=== PATIENT | female | born 1960 | race Caucasian/White ===

== ENCOUNTER 2020-06-16 12:22 | Outpatient (REF) | payer OTHER, SELFPAY ==
--- NOTE | 2020-06-16 | MM_ITS ---
EXAMINATION: MM DIAGNOSTIC DIGITAL BREAST TOMOSYNTHESIS, BILATERAL CLINICAL INFORMATION: Due for yearly. Probable benign calcifications in region of prior benign biopsy central left breast. The lifetime risk of breast cancer based on the Tyrer-Cuzick Model is 9%. COMPARISON: Mammography: 12/11/2019, 06/09/2019, 12/05/2018, 12/02/2018 (BI-RADS 0, 11/26/2017 TECHNIQUE: Digital breast tomosynthesis is performed in both the craniocaudal and mediolateral oblique views along with computer-aided detection (CAD). Synthesized 2D images are generated from the tomosynthesis. Additional magnification left CC and magnification left ML views are obtained. FINDINGS: There are scattered areas of fibroglandular density (ACR BI-RADS breast composition Category b). Parenchymal pattern is similar to prior studies. Regional parenchymal asymmetry upper outer left breast and nodular asymmetry posterior central left breast are stable. Neither breast shows interval mass or architectural abnormality or developing density. Again, there are some scattered calcifications mid upper outer right breast. Biopsy clip marker again seen central upper mid left breast. Calcifications in the region of the biopsy clip are similar to prior diagnostic studies. No ductal distribution or interval branching or pleomorphic types. Calcifications will be reassessed again at next bilateral annual mammography to include left magnification views. Results are provided to the patient at time of visit by the technologist. MM/MM tomosynthesis diagnostic BI IMPRESSION: 1. No significant changes from prior study. 2. Probable benign calcifications are in region of prior left breast biopsy clip marker to be reassessed again at next bilateral annual exam. ASSESSMENT: BI-RADS 3: Probably Benign RECOMMENDATION: Diagnostic mammography at time of next annual exam, due in 12 months. This patient's information was entered into a reminder system with a target due date for their next mammogram.
== END 2020-06-16 12:23 | disposition home or self-care (01) ==
LOC: HO.MAMMO 12:22
PROVIDERS: Visit Provider Internal Medicine
DX: R92.1 Mammographic calcification found on diagnostic imaging of breast (principal)
CPT/HCPCS: 77062; 77066

== ENCOUNTER 2020-08-16 13:01 | Outpatient (REF) | payer OTHER, SELFPAY ==
--- NOTE | 2020-08-16 | XR_ITS ---
EXAMINATION: XR CHEST CLINICAL INFORMATION: Post Covid 19 follow-up COMPARISON: None TECHNIQUE: 2 views of the chest were obtained. FINDINGS: No significant abnormality is noted involving the heart, lungs, mediastinum, bony thorax or soft tissues. XR/XR chest 2V IMPRESSION: Unremarkable chest examination.
== END 2020-08-16 13:02 | disposition home or self-care (01) ==
LOC: HO.HMGCX 13:01
PROVIDERS: PCP Internal Medicine; Visit Provider Internal Medicine
DX: U07.1 COVID-19 (principal); R04.2 Hemoptysis
CPT/HCPCS: 71046

== ENCOUNTER 2020-12-10 07:12 | Outpatient (REF) | payer OTHER, SELFPAY ==
[2020-12-10 12:33] LABS: Estimated Average Glucose 197 mg/dL; Hemoglobin A1c % 8.5 %
== END 2020-12-10 07:13 | disposition home or self-care (01) ==
LOC: HO.HMGCLDS 07:12
PROVIDERS: PCP Internal Medicine; Visit Provider Internal Medicine
DX: E11.9 Type 2 diabetes mellitus without complications (principal); Z79.4 Long term (current) use of insulin
CPT/HCPCS: 36415; 83036

== ENCOUNTER → 2021-04-28 10:05 | Outpatient (BNVA) | payer OTHER, SELFPAY | PROVIDERS: PCP Internal Medicine; Visit Provider Obstetrics & Gynecology ==

== ENCOUNTER 2021-06-14 12:19 | Outpatient (REF) | payer OTHER, SELFPAY ==
--- NOTE | ~2021-06-14 | MM_ITS ---
EXAMINATION: MM DIAGNOSTIC DIGITAL BREAST TOMOSYNTHESIS, BILATERAL CLINICAL INFORMATION: Due for yearly. History right atypical ductal hyperplasia, status post open surgical biopsy at [facility] on 02/17/2013. Follow-up up probable benign calcifications central left breast in area of prior biopsy clip marker. The lifetime risk of breast cancer based on the Tyrer-Cuzick Model is 27%. COMPARISON: Mammography: 06/16/2020, 12/11/2019, 06/09/2019, 12/05/2018, 12/02/2018 (BI-RADS 0), 11/26/2017, 05/25/2016 TECHNIQUE: Digital breast tomosynthesis is performed in both the craniocaudal and mediolateral oblique views along with computer-aided detection (CAD). Synthesized 2D images are generated from the tomosynthesis. Additional views are obtained: Magnification left CC, magnification left ML, standard exaggerated right CC. FINDINGS: There are scattered areas of fibroglandular density (ACR BI-RADS breast composition Category b). Right: Right breast is stable scarring mid upper outer quadrant consistent with prior excisional biopsy. There is no interval mass or architectural abnormality. There are some stable scattered benign calcifications. Left: Left breast has stable parenchymal asymmetry upper outer quadrant mid depth. There is no developing density or interval mass or architectural abnormality. Smooth nodularity posterior central 12:00 left breast is stable. The left breast calcifications for follow-up central breast mid depth in area of prior biopsy clip marker are increased in number since initial magnification views 12/05/2018. The calcifications are relatively coarse but vary in size and there are also punctate calcifications. Stereotactic sampling is recommended. There are two groups of tightly arranged calcifications in the left breast, immediately posterior medial and posterior lateral to the group recommended for sampling. These are circumferentially arranged and suggestive of fibroadenomatous changes. Management: Results are discussed with the patient at time of visit. Stereotactic biopsy of the left breast calcifications in area of prior biopsy clip marker is recommended. Results and recommendation called to preventive medicine officer (Laurie) for Dr. Priest on 06/14/2021. MM/MM tomosynthesis diagnostic BI IMPRESSION: 1. Left: Increased heterogeneous calcifications in area of prior biopsy clip marker mid central left breast. 2. Right: No mammographic evidence of malignancy. ASSESSMENT: BI-RADS 4: Suspicious (subcategory 4A: Low suspicion for malignancy) RECOMMENDATION: Stereotactic sampling central left breast calcifications in area of prior biopsy clip marker. This patient's information was entered into a reminder system with a target due date for their next mammogram.
== END 2021-06-14 12:20 | disposition home or self-care (01) ==
LOC: HO.MAMMO 12:19
PROVIDERS: Visit Provider Internal Medicine
DX: R92.1 Mammographic calcification found on diagnostic imaging of breast (principal)
CPT/HCPCS: 77062; 77066

== ENCOUNTER → 2021-06-15 16:00 | Outpatient (BNVA) | payer OTHER, SELFPAY | PROVIDERS: Visit Provider Obstetrics & Gynecology ==

== ENCOUNTER 2021-06-18 07:13 | Outpatient (REF) | payer OTHER, SELFPAY ==
[2021-06-18 11:46] LABS: Estimated Average Glucose 214 mg/dL; Hemoglobin A1c % 9.1 %
== END 2021-06-18 07:14 | disposition home or self-care (01) ==
LOC: HO.HMGCLDS 07:13
PROVIDERS: PCP Internal Medicine; Visit Provider Internal Medicine
DX: E10.9 Type 1 diabetes mellitus without complications (principal); Z79.4 Long term (current) use of insulin
CPT/HCPCS: 36415; 83036

== ENCOUNTER 2021-06-23 10:07 | Outpatient (REF) | payer OTHER, SELFPAY ==
--- NOTE | ~2021-06-23 | MM_ITS ---
EXAMINATION: STEREOTACTIC TOMOSYNTHESIS-GUIDED VACUUM-ASSISTED BREAST BIOPSY, LEFT SPECIMEN RADIOGRAPH, LEFT POST PROCEDURE DIGITAL MAMMOGRAM, LEFT CLINICAL INFORMATION: Increased calcifications in area of prior biopsy mid central left breast. COMPARISON: Mammography 06/14/2021, 06/16/2020, 06/09/2019, 12/05/2018, 12/02/2018. TECHNIQUE/PROCEDURE: Informed consent was obtained from the patient after discussion of the benefits, risks, and alternatives to biopsy today. Patient appeared to understand. Gave opportunity for questions. Patient signed consent form. BIOPSY TABLE: [employer] [facility]one Biopsy System. LESION: Calcifications central breast mid depth in area of prior clip marker. LOCAL ANESTHESIA: 8 mL carbonated 1% lidocaine; 10 mL carbonated 1% lidocaine with epinephrine. DERMATOTOMY: Single skin zahra dermatotomy performed. NEEDLE: Mortar [employer] 9-gauge vacuum assisted core biopsy device. APPROACH: craniocaudal. TARGETING: Combination of digital breast tomosynthesis and stereotactic digital mammography used for targeting. CORES: 8. CLIP: Shanda [employer] T-shaped marker. SPECIMEN RADIOGRAPH: Specimen radiograph is taken in separate room using digital mammography. The index calcifications are in the excised cores. There are at least 25 calcifications in the cores. POST PROCEDURE UNILATERAL DIGITAL MAMMOGRAM: The post biopsy mammogram is performed in separate room using separate digital mammography equipment from the biopsy procedure. CC and ML views are obtained. There are scattered areas of fibroglandular density (breast composition category: b). The T shaped clip marker is in position. The position is 1.1 cm more superior than the biopsy cavity consistent with mild accordion effect. There is an old clip marker in this area similar to prior studies. The calcifications are decreased at the biopsy site consistent with the sampling. No gross hematoma. The patient tolerated the procedure well. No immediate complications. Home instructions reviewed with the patient. Final pathology results are pending. MM/MM stereotactic biopsy LT IMPRESSION: 1. Digital tomosynthesis-guided core biopsy left breast with clip placement. 2. Specimen radiograph taken and post procedure mammogram. There is mild superior accordion effect of the T shaped clip marker. 3. Final pathology results pending. An addendum report will be issued.
[2021-06-23] MEDS: Lidocaine HCl 1 % 20 ML VIAL 10 ML SUBCUT (15:55)
[2021-06-23] MEDS: Sodium Bicarbonate 8.4% 50 MEQ/50 ML VIAL SUBCUT (15:57)
== END 2021-06-23 10:08 | disposition home or self-care (01) ==
LOC: HO.MAMMO 10:07
PROVIDERS: Visit Provider Surgery
DX: R92.1 Mammographic calcification found on diagnostic imaging of breast (principal)
CPT/HCPCS: 19081; 88305; 88341; 88342; A4648

== ENCOUNTER → 2021-06-29 08:50 | Outpatient (BNVA) | payer OTHER, SELFPAY | PROVIDERS: PCP Internal Medicine; Referring Provider Internal Medicine; Visit Provider Surgery | DX: R92.1 Mammographic calcification found on diagnostic imaging of breast (principal) ==

== ENCOUNTER 2021-08-15 14:19 | Outpatient (REF) | payer OTHER, SELFPAY | END 2021-08-15 14:20 | disposition home or self-care (01) | LOC: HO.LAB 14:19 | PROVIDERS: PCP Internal Medicine | DX: R32 Unspecified urinary incontinence (principal) | CPT/HCPCS: 87086; 87088; 87186 ==

== ENCOUNTER 2021-10-22 10:06 | Outpatient (REF) | payer OTHER, SELFPAY ==
[2021-10-22 11:32] LABS: Estimated Average Glucose 200 mg/dL; Hemoglobin A1c % 8.6 %
== END 2021-10-22 10:07 | disposition home or self-care (01) ==
LOC: HO.HMGCLDS 10:06
PROVIDERS: PCP Internal Medicine; Visit Provider Internal Medicine
DX: E11.9 Type 2 diabetes mellitus without complications (principal); Z79.4 Long term (current) use of insulin
CPT/HCPCS: 36415; 83036

== ENCOUNTER 2021-10-24 15:22 | Outpatient (REF) | payer OTHER, SELFPAY ==
[2021-10-24 17:26] LABS: Hematocrit 39.9 % (37.0-47.0); Hemoglobin 12.6 g/dl (12.0-16.0); Mean Corpuscular HGB Conc 31.6 g/dl (31.0-35.0); Mean Corpuscular Hemoglobin 24.3 pg (27.0-33.0); Mean Platelet Volume 10.4 fL (9.4-12.3); Platelet Count 277 X10*3/uL (160-400); Red Blood Count 5.18 X10*6/uL (4.20-5.50); Red Cell Distribution Width 16.2 % (11.0-16.0); White Blood Count 12.7 X10*3/uL (4.8-10.8)
[2021-10-24 18:17] LABS: Alanine Aminotransferase 44 U/L (0-31); Albumin Level 4.2 g/dL (3.5-5.0); Alkaline Phosphatase 124 U/L (39-117); Anion Gap 13 (12-20); Aspartate Amino Transferase 22 U/L (5-31); Bilirubin Total 0.4 mg/dL (0.0-1.0); Blood Urea Nitrogen 14 mg/dL (9-16); Calcium 9.8 mg/dL (8.4-10.2); Carbon Dioxide 25 mmol/L (22-29); Chloride 104 mmol/L (96-108); Estimated Glomerular Filt Rate > 60; Glucose Random 202 mg/dL (60-115); Potassium 4.2 mmol/L (3.3-5.1); Sodium 138 mmol/L (135-145); Total Protein 7.1 g/dL (6.5-8.0)
== END 2021-10-24 15:23 | disposition home or self-care (01) ==
LOC: HO.LAB 15:22
PROVIDERS: PCP Internal Medicine; Referring Provider Internal Medicine; Visit Provider Nurse Practitioner Family
DX: Z01.818 Encounter for other preprocedural examination (principal); K59.01 Slow transit constipation
CPT/HCPCS: 36415; 80053; 85027

== ENCOUNTER 2021-11-07 | Outpatient (REF) | payer OTHER, SELFPAY ==
--- NOTE | ~2021-11-07 | XR_ITS ---
EXAMINATION: XR CHEST CLINICAL INFORMATION: Cough COMPARISON: 08/16/2020 TECHNIQUE: 2 views of the chest were obtained. FINDINGS: The lungs are well expanded. There is no focal consolidation, edema, or effusion. No pneumothorax. The cardiomediastinal silhouette is within normal limits. No acute osseous abnormality. Mild degenerative changes in the spine. XR/XR chest 2V IMPRESSION: No acute pulmonary finding.
--- NOTE | ~2021-11-07 | XR_ITS ---
EXAMINATION: XR KNEE AP STANDING CLINICAL INFORMATION: Bilateral knee pain COMPARISON: 08/19/2019 TECHNIQUE: AP bilateral standing view of the knees was obtained. Lateral standing view of both knees. FINDINGS: Right knee: No fracture or subluxation. There is severe medial compartment joint space narrowing. Prominent tricompartmental marginal osteophytes. No joint effusion. The appearance is similar to the 2019 study. Left knee: No fracture or subluxation. Severe medial compartment joint space narrowing with prominent tricompartmental marginal osteophytes. Enthesophyte formation of the patella. No significant joint effusion. XR/XR knee standing BI IMPRESSION: Advanced tricompartmental degenerative changes of both knees, greatest at the medial compartments.
== END 2021-11-07 12:42 | disposition home or self-care (01) ==
LOC: HO.HMGCX
PROVIDERS: PCP Internal Medicine; Visit Provider Internal Medicine
DX: M25.561 Pain in right knee (principal); M25.562 Pain in left knee; R05.9 Cough, unspecified; R09.3 Abnormal sputum
CPT/HCPCS: 71046; 73565

== ENCOUNTER → 2021-11-14 13:34 | Outpatient (BNVA) | payer OTHER, SELFPAY | PROVIDERS: PCP Internal Medicine | DX: Z13.89 Encounter for screening for other disorder (principal) ==

== ENCOUNTER → 2021-11-17 09:01 | Outpatient (BNVA) | payer OTHER, SELFPAY | PROVIDERS: PCP Internal Medicine; Visit Provider Orthopaedic Surgery | DX: M17.0 Bilateral primary osteoarthritis of knee (principal); E11.65 Type 2 diabetes mellitus with hyperglycemia | CPT/HCPCS: 20610; J1100 ==

== ENCOUNTER 2021-12-05 10:57 | Day surgery (SDC) | payer OTHER, SELFPAY ==
[2021-11-30 10:44] VITALS: BMI 45.4
--- NOTE | 2021-12-02 10:00 | P.CONAN_ITS ---
Documented by User: Regina Gomez NP 12/02/21 10:02 HPI - Anesthesia Eval Consult details Narrative: 61yo F for Colonoscopy PMFSH Active Problems Active Problems: All Active Problems (Updated 11/30/21 @ 10:39 by Dinorah Streeter RN) Well woman exam (Acute) Urine incontinence (Acute) Abnormal mammogram (Acute) At high risk for breast cancer (Acute) Tricompartment osteoarthritis of knees, bilateral (Acute) Morbid obesity (Acute) Breast calcification, left (Acute) Diabetes type 2, uncontrolled (Acute) Past Medical History Medical History Anxiety Arthritis Breast calcification, left Diabetes type 2, uncontrolled Elevated cholesterol Morbid obesity Tendonitis Family History Family History Mother Kidney carcinoma Surgical History Surgical History H/O cervical polypectomy Hx of section Hx of colonoscopy Hx of right breast biopsy Social History Social History (Updated 11/17/21 @ 09:17 by Yoselin Colin CMA) Alcohol intake: never Patient Tobacco Use Status: Never used Tobacco Advance Directives: No Advance Directives Information Provided: Yes (brochure mailed) Advance Directives on File: No 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: employed 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 Allergy/AdvReac Type Severity Reaction Status Date / Time latex [LATEX] Allergy Intermediate RASH Verified 11/17/21 09:16 dust Allergy Unknown Unknown Uncoded 08/15/21 14:30 pollen Allergy Unknown Unknown Uncoded 08/15/21 14:30 Home Medications Medication Instructions Recorded Confirmed Last Taken Type fluticasone propionate 50 1 spray INTRANASAL BID 04/28/21 06/29/21 Unknown History mcg/actuation nasal spray,suspension lorazepam 0.5 mg tablet 0.5 mg PO QID PRN 04/28/21 06/29/21 Unknown History metformin 1,000 mg tablet 1,000 mg PO BID 04/28/21 06/29/21 Unknown History omeprazole 20 mg capsule,delayed 20 mg PO DAILY 04/28/21 06/29/21 Unknown History release sertraline 50 mg tablet 50 mg PO DAILY 04/28/21 06/29/21 Unknown History clotrimazole-betamethasone 1 appl TOPICAL BID 06/23/21 06/29/21 Unknown History %-0.05 % topical cream fexofenadine 30 mg tablet 60 mg PO BID 06/23/21 06/29/21 Unknown History flash glucose sensor (FreeStyle #1 ea 06/23/21 06/29/21 Unknown History Lynsey 14 Day Sensor) fluticasone propionate 50 1 spray INTRANASAL BID 06/23/21 06/29/21 Unknown History mcg/actuation nasal spray,suspension naproxen 500 mg tablet 500 mg PO BID 06/23/21 06/29/21 Unknown History sertraline 100 mg tablet 100 mg PO DAILY 06/23/21 06/29/21 Unknown History amoxicillin 875 mg-potassium 1 tab PO BID 11/14/21 Unknown History clavulanate 125 mg tablet ascorbic acid (vitamin C) 500 mg 500 mg PO DAILY 11/14/21 Unknown History tablet (Vitamin C) Exam Exam Date and Time: December 02, 2021 1000 Height,Weight and Vital Signs: Height 5 ft 7 in Weight 131.542 kg Pertinent Lab Results Pertinent Lab Results: Laboratory Tests 10/24/21 10/24/21 16:47 16:47 WBC 12.7 H Hgb 12.6 Hct 39.9 Plt Count 277 Sodium 138 Potassium 4.2 Chloride 104 Carbon Dioxide 25 BUN 14 Creatinine 0.71 Assessment and Plan Assessment Anesthesia Assessment: Chart Reviewed Documented by User: Christal Mejia MD 12/05/21 13:02 [facility] Past Medical History Medical History Anxiety Arthritis Breast calcification, left Diabetes type 2, uncontrolled Elevated cholesterol Morbid obesity Tendonitis Family History Family History Mother Kidney carcinoma Family history of problems with anesthesia: No Surgical History Surgical History H/O cervical polypectomy Hx of section Hx of colonoscopy Hx of right breast biopsy History of Problems with Anesthesia: No Social History Social History (Updated 11/17/21 @ 09:17 by Yoselin Colin CMA) Alcohol intake: never Patient Tobacco Use Status: Never used Tobacco Advance Directives: No Advance Directives Information Provided: Yes (brochure mailed) Advance Directives on File: No 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: employed 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 Allergy/AdvReac Type Severity Reaction Status Date / Time latex [LATEX] Allergy Intermediate RASH Verified 11/17/21 09:16 dust Allergy Unknown Unknown Uncoded 08/15/21 14:30 pollen Allergy Unknown Unknown Uncoded 08/15/21 14:30 Home Medications Medication Instructions Recorded Confirmed Last Taken Type fluticasone propionate 50 1 spray INTRANASAL BID 04/28/21 06/29/21 Unknown History mcg/actuation nasal spray,suspension lorazepam 0.5 mg tablet 0.5 mg PO QID PRN 04/28/21 06/29/21 Unknown History metformin 1,000 mg tablet 1,000 mg PO BID 04/28/21 06/29/21 Unknown History omeprazole 20 mg capsule,delayed 20 mg PO DAILY 04/28/21 06/29/21 Unknown History release sertraline 50 mg tablet 50 mg PO DAILY 04/28/21 06/29/21 Unknown History clotrimazole-betamethasone 1 appl TOPICAL BID 06/23/21 06/29/21 Unknown History %-0.05 % topical cream fexofenadine 30 mg tablet 60 mg PO BID 06/23/21 06/29/21 Unknown History flash glucose sensor (FreeStyle #1 ea 06/23/21 06/29/21 Unknown History Lynsey 14 Day Sensor) fluticasone propionate 50 1 spray INTRANASAL BID 06/23/21 06/29/21 Unknown History mcg/actuation nasal spray,suspension naproxen 500 mg tablet 500 mg PO BID 06/23/21 06/29/21 Unknown History sertraline 100 mg tablet 100 mg PO DAILY 06/23/21 06/29/21 Unknown History amoxicillin 875 mg-potassium 1 tab PO BID 11/14/21 Unknown History clavulanate 125 mg tablet ascorbic acid (vitamin C) 500 mg 500 mg PO DAILY 04/11/22 Unknown History tablet (Vitamin C) Exam Airway Mallampati Class: III TM Dist: >3cm Neck ROM: Full Heart: rrr Lungs: cta Assessment and Plan Assessment Anesthesia Assessment: Anesthesia Plan Discussed and Chart Reviewed Final Anesthetic Review Family History of Problems with Anesthesia: No History of Problems with Anesthesia: No NPO: Yes ASA Class: III Final Preanesthetic Review: No Changes in Pt Med Stat, Meds/Allgs Chart Reviewed and Consent Obtained/Reviewed Patient Risk: Intermediate Procedure Risk: Intermediate Anesthetic Plan Anesthetic Plan: MAC: Disposition: Standard PACU
[2021-12-05] MEDS: Lactated Ringers 1,000 ML 100 ML IVCONT (12:24)
[2021-12-05 12:25] VITALS: BP 149/85; PULSE 95; RESP 18; TEMP 36.8; O2SAT 98
--- NOTE | 2021-12-05 13:05 | MHC.SHP ---
Pre-Procedural Eval Section A Date of Service: 12/05/21 The patient is an INPATIENT: No The History & Physical has been completed within 30 days and I have reviewed it.: No Section B Chief Complaint: screening Details of Present Illness: Colon cancer screening Relevant Family History (Specify if Yes): No Relevant Social History: None Present Medications: see Short Stay Collaborative assessment Medical History: Significant History (Anxiety Arthritis Breast calcification, left Diabetes type 2, uncontrolled Morbid obesity Tendonitis) History of Previous Operations: Relevant previous surgery/procedure and date(s) (H/O cervical polypectomy Hx of section Hx of colonoscopy) Allergies: Allergies Allergy/AdvReac Type Severity Reaction Status Date / Time latex [LATEX] Allergy Intermediate RASH Verified 11/17/21 09:16 dust Allergy Unknown Unknown Uncoded 08/15/21 14:30 pollen Allergy Unknown Unknown Uncoded 08/15/21 14:30 Review of Systems Sugical H&P ROS: Negative: Constitution, Cardiovascular, Respiratory and Gastrointestinal Exam Surgical H&P Exam: Normal: Heart, Normal: Lungs, Normal: Extremities and Normal: Abdomen Plan Diagnosis/Plan: Unchanged I have reviewed the history and physical and performed a pertinent physical examination on my patient. No changes have occurred unless specified.
--- NOTE | 2021-12-05 13:06 | P.BOP_ITS ---
Brief Operative Note Date of Service: 12/05/21 Pre-op diagnosis: Colon cancer screening Post-op diagnosis: other (Colon polyps, diverticulosis) Procedure: COLONOSCOPY TILL CECUM WITH BIOPSIES AND SNARE POLYPECTOMY Consent: Indications for the procedure and potential complications of bleeding, perforation, reaction to medications and missed diagnosis were discussed with the patient and informed consent was obtained. Instrument: Olympus PCF H 190 L variable stiffness pediatric colonoscope Monitoring: Vital signs and clinical assessment, intermittent blood pressure monitoring, continuous EKG monitoring, Pulse oximetry and Carbon Dioxide monitoring were done throughout the procedure. Colon withdrawl time was 27 minutes. Procedure: The patient was placed in the left lateral decubitis position and pre-procedure medications were administered. After a digital rectal examination of the ano-rectum, the video colonoscope was inserted into the rectum and advanced through the colon to the cecum. The colonoscope was slowly withdrawn in a retrograde panoramic fashion and the colon mucosa was carefully examined including a retroflexed view of the rectum. Findings and interventions are described below. Procedure Difficulty: Without difficulty Findings: Terminal Ileum: Not evaluated Cecum: A 2-3 mm diminutive appearing polyp removed with a cold bx Ascending Colon: Normal Transverse Colon: Normal Descending Colon: A 10 mm sessile polyp removed with a cold snare Sigmoid Colon: Moderate diverticulosis Rectum: Normal Ano-rectum: Moderate internal hemorrhoids Colon preparation: Good after copious irrigation and fair in the left colon with stool balls Impression and Post Procedure Diagnosis: Colonoscopy Findings: One small and one medium sized polyps removed Moderate diverticulosis seen in the sigmoid colon Plan: Await pathology results Patient has an appointment on 12/19/21 in the GI Clinic with Alley Warren FNP-BC . Repeat Colonoscopy interval based on path results - in 3 years if polyps are adenomatous and due to fair prep in the left colon. Above findings were reviewed with the patient and colon polyps and diverticulosis handouts were given in the discharge area Surgeon: Roque Armstrong MD Anesthesia: MAC (Dr Diaz) Was an Farm Implement Mechanic used for this Procedure?: Yes Farm Implement Mechanic: Kristi Rolon Estimated blood loss (mL): 0 Pathology: other (A. cecal polyp B. descending colon polyp) Condition: stable Disposition: PACU
--- NOTE | 2021-12-05 13:15 | P.OP_ITS ---
Operative Note Operative Note Date of Service: 12/05/21 Narrative: Pre-op diagnosis: Colon cancer screening Post-op diagnosis:?other (Colon polyps, diverticulosis) Procedure: COLONOSCOPY TILL CECUM WITH BIOPSIES AND SNARE POLYPECTOMY Consent: Indications for the procedure and potential complications of bleeding, perforation, reaction to medications and missed diagnosis were discussed with the patient and informed consent was obtained. Instrument: Olympus PCF H 190 L variable stiffness pediatric colonoscope Monitoring: Vital signs and clinical assessment, intermittent blood pressure monitoring, continuous EKG monitoring, Pulse oximetry and Carbon Dioxide monitoring were done throughout the procedure. Colon withdrawl time was 27 minutes. Procedure: The patient was placed in the left lateral decubitis position and pre-procedure medications were administered. After a digital rectal examination of the ano-rectum, the video colonoscope was inserted into the rectum and advanced through the colon to the cecum. The colonoscope was slowly withdrawn in a retrograde panoramic fashion and the colon mucosa was carefully examined including a retroflexed view of the rectum. Findings and interventions are described below. Procedure Difficulty: Without difficulty Findings: Terminal Ileum: Not evaluated Cecum:? A 2-3 mm diminutive appearing polyp removed with a cold bx Ascending Colon:? Normal Transverse Colon:? Normal Descending Colon:? A 10 mm sessile polyp removed with a cold snare Sigmoid Colon:? Moderate diverticulosis Rectum:? Normal Ano-rectum:? Moderate internal hemorrhoids Colon preparation:? Good after copious irrigation and fair in the left colon with stool balls Impression and Post Procedure Diagnosis: Colonoscopy Findings: One small and one medium sized polyps removed Moderate diverticulosis seen in the sigmoid colon Plan: Await pathology results Patient has an appointment on 12/19/21 in the GI Clinic with ? Alley Warren FNP-[place] . Repeat Colonoscopy interval based on path results - in 3 years if polyps are adenomatous and due to fair prep in the left colon. (Dulcolax 2 tablets daily starting 3 days before colonoscopy procedure for future colonoscopies) Above findings were reviewed with the patient and colon polyps and diverticulosis handouts were given in the discharge area Surgeon: Roque Armstrong MD Anesthesia:?MAC (Dr Diaz) Was an Steam Plant Operator used for this Procedure?:?Yes Steam Plant Operator:?Kristi Rolon Estimated blood loss (mL):?0 Pathology:?other (A. cecal polyp? B. descending colon polyp) Condition:?stable Disposition:?PACU
[2021-12-05 14:06] VITALS: BP 128/68; PULSE 90; RESP 16; TEMP 36.9; O2SAT 94
--- NOTE | 2021-12-05 14:18 | P.CONAN_ITS ---
[facility] Active Problems Active Problems: All Active Problems (Updated 11/30/21 @ 10:39 by Dinorah Streeter RN) Well woman exam (Acute) Urine incontinence (Acute) Abnormal mammogram (Acute) At high risk for breast cancer (Acute) Tricompartment osteoarthritis of knees, bilateral (Acute) Morbid obesity (Acute) Breast calcification, left (Acute) Diabetes type 2, uncontrolled (Acute) Past Medical History Medical History Anxiety Arthritis Breast calcification, left Diabetes type 2, uncontrolled Elevated cholesterol Morbid obesity Tendonitis Family History Family History Mother Kidney carcinoma Family history of problems with anesthesia: No Surgical History Surgical History H/O cervical polypectomy Hx of section Hx of colonoscopy Hx of right breast biopsy History of Problems with Anesthesia: No Social History Social History (Updated 11/17/21 @ 09:17 by Yoselin Colin CMA) Alcohol intake: never Patient Tobacco Use Status: Never used Tobacco Advance Directives: No Advance Directives Information Provided: Yes (brochure mailed) Advance Directives on File: No 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: employed 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 Allergy/AdvReac Type Severity Reaction Status Date / Time latex [LATEX] Allergy Intermediate RASH Verified 11/17/21 09:16 dust Allergy Unknown Unknown Uncoded 08/15/21 14:30 pollen Allergy Unknown Unknown Uncoded 08/15/21 14:30 Active Medications: Current Medications Lactated Ringer's (Lr) 1,000 mls @ 100 mls/hr IVCONT .Q10H SORAYA Last Admin: 12/05/21 12:24 Dose: 100 mls/hr Documented by: Home Medications Medication Instructions Recorded Confirmed Last Taken Type fluticasone propionate 50 1 spray INTRANASAL BID 04/28/21 06/29/21 Unknown History mcg/actuation nasal spray,suspension lorazepam 0.5 mg tablet 0.5 mg PO QID PRN 04/28/21 06/29/21 Unknown History metformin 1,000 mg tablet 1,000 mg PO BID 04/28/21 06/29/21 Unknown History omeprazole 20 mg capsule,delayed 20 mg PO DAILY 04/28/21 06/29/21 Unknown History release sertraline 50 mg tablet 50 mg PO DAILY 04/28/21 06/29/21 Unknown History clotrimazole-betamethasone 1 appl TOPICAL BID 06/23/21 06/29/21 Unknown History %-0.05 % topical cream fexofenadine 30 mg tablet 60 mg PO BID 06/23/21 06/29/21 Unknown History flash glucose sensor (FreeStyle #1 ea 06/23/21 06/29/21 Unknown History Lynsey 14 Day Sensor) fluticasone propionate 50 1 spray INTRANASAL BID 06/23/21 06/29/21 Unknown History mcg/actuation nasal spray,suspension naproxen 500 mg tablet 500 mg PO BID 06/23/21 06/29/21 Unknown History sertraline 100 mg tablet 100 mg PO DAILY 06/23/21 06/29/21 Unknown History amoxicillin 875 mg-potassium 1 tab PO BID 11/14/21 Unknown History clavulanate 125 mg tablet ascorbic acid (vitamin C) 500 mg 500 mg PO DAILY 11/14/21 Unknown History tablet (Vitamin C) Exam Exam Date and Time: December 05, 2021 1418 Height,Weight and Vital Signs: Height 5 ft 7 in Weight 131.542 kg Last Vital Signs Temp 98.2 F 12/05/21 12:25 Pulse 95 12/05/21 12:25 Resp 18 12/05/21 12:25 BP 149/85 H 12/05/21 12:25 Pulse Ox 98 12/05/21 12:25 Airway Mallampati Class: II TM Dist: >3cm Neck ROM: Full Heart: rrr Lungs: cta Assessment and Plan Assessment Anesthesia Assessment: Anesthesia Plan Discussed and Chart Reviewed Final Anesthetic Review Family History of Problems with Anesthesia: No History of Problems with Anesthesia: No NPO: Yes ASA Class: III Final Preanesthetic Review: No Changes in Pt Med Stat, Meds/Allgs Chart Reviewed and Consent Obtained/Reviewed Patient Risk: Intermediate Procedure Risk: Intermediate Anesthetic Plan Anesthetic Plan: MAC: Disposition: Standard PACU
[2021-12-05 14:21] VITALS: BP 128/79; PULSE 89; RESP 18; TEMP 36.9; O2SAT 94
== END 2021-12-05 15:02 | disposition home or self-care (01) ==
PROVIDERS: PCP Internal Medicine; Visit Provider Internal Medicine Gastroenterology
PROC: 0DJD8ZZ Inspection of Lower Intestinal Tract, Via Natural or Artificial Opening Endoscopic (ICD-10-PCS; CPT 45378; principal; 2021-12-05 12:30)
DX: Z12.11 Encounter for screening for malignant neoplasm of colon (principal); D12.4 Benign neoplasm of descending colon; K63.5 Polyp of colon; K57.30 Diverticulosis of large intestine without perforation or abscess without bleeding; K59.01 Slow transit constipation; F41.1 Generalized anxiety disorder; R06.02 Shortness of breath; E11.9 Type 2 diabetes mellitus without complications; E66.01 Morbid (severe) obesity due to excess calories; Z68.42 Body mass index [BMI] 45.0-49.9, adult; Z79.84 Long term (current) use of oral hypoglycemic drugs; Z79.899 Other long term (current) drug therapy; Z91.040 Latex allergy status
CPT/HCPCS: 45385; 45380; 88305

== ENCOUNTER 2022-01-10 07:39 | Outpatient (REF) | payer OTHER, SELFPAY | END 2022-01-10 07:40 | disposition home or self-care (01) | LOC: HO.HMGCLDS 07:39 | PROVIDERS: PCP Internal Medicine | DX: N39.0 Urinary tract infection, site not specified (principal) | CPT/HCPCS: 87086; 87088; 87186 ==

== ENCOUNTER 2022-02-21 11:00 | Outpatient (RCR) | payer OTHER, SELFPAY ==
--- NOTE | 2022-01-03 18:16 | MHC.PT.EP ---
[facility] [place] Office [place] Office [place] Office [address] [phone] F: [phone] F: [phone] F: [phone] F: [phone] Physical Therapy Plan of Care Date of Evaluation: Date of Surgery: n/a Diagnosis: Bilateral primary osteoarthritis of knee tricompartment osteoarthritis of knees, bilateral physical deconditioning other malaise HEP, weight loss Assessment: Pt is a pleasant 61yo who presents to PT with B knee pain, R>L. She presents to PT with current impairments in pain, decreased knee ROM, decreased LE strength, decreased balance, decreased endurance, and impaired gait. She is limited functionally by prolonged standing, walking, stair navigation, and performing household tasks. Pt is a good candidate for skilled PT in order to address current impairments to maximize strength, endurance, function, and QOL. She will be seen 2x/week for 4 weeks and will be reassessed at that time. Frequency and Duration: The patient will be seen 2x/week for 4 weeks Short Term Goals: Pt will be I with HEP to promote self management of symptoms Pt will improve R knee flexion by at least 5 degrees End Worker Goals: Pt will improve B quad strength to at least 4+/5 to assist with stair navigation Pt will tolerate standing and walking > 30 min to assist with functional tasks such as grocery shopping Pt will demonstrate improvements in functional mobility as evidenced by statistically significant improvement in LEFI outcome measure Treatment Plan: Modalities to reduce pain, spasms and effusion. Manual therapy to restore motion and function. Therapeutic exercise to improve strength and flexibility. Neuromuscular re-education for posture and balance. Therapeutic activities to return to functional activities of daily living. Electronically signed by: Shelly Handy, PT, DPT Please sign and return to therapist. Thank you for your referral.
--- NOTE | 2022-02-22 08:14 | MHC.PT.DC ---
[facility] [place] Office [place] Office [place] Office [address] [place] [address] [phone] F: [phone] F: [phone] F: [phone] F: [phone] Physical Therapy Discharge Report Diagnosis: Bilateral primary osteoarthritis of knee tricompartment osteoarthritis of knees, bilateral physical deconditioning other malaise HEP, weight loss Date of Surgery: n/a Date of Evaluation: 01/03/22 Date of Discharge: 02/21/22 Treatments to Date: 11 Cancellations to Date: 1 No Shows to Date: Discharge Status: Achieved Goals Improved Function Independent with HEP Discharge Summary: Pt has come to 11 PT appointments. She is I with HEP and has a thorough exercise program to follow. PT emphasized the importance of continuing exercising independently. Pt progressed with strength, endurance reduced c/o pain and improved balance overall. Pt will be following up with MD to schedule TKR. Pt DC to HEP at this time. Electronically signed by: Sandra Lima PT Please sign and return to therapist. Thank you for your referral.
== END 2022-02-22 08:15 | disposition home or self-care (01) ==
LOC: HO.PTCHIC 11:00
PROVIDERS: PCP Internal Medicine; Visit Provider Orthopaedic Surgery
DX: M17.0 Bilateral primary osteoarthritis of knee (principal)
CPT/HCPCS: 97110; 97116; 97162; 97530

== ENCOUNTER 2022-05-01 10:04 | Outpatient (REF) | payer OTHER, SELFPAY ==
[2022-05-09 04:46] LABS: HPV mRNA E6/E7 rflx Detected (Not Detected)
[2022-05-09 04:56] LABS: HPV 16 RNA NOT DETECTED (NOT DETECTED)
== END 2022-05-01 10:05 | disposition home or self-care (01) ==
LOC: HO.LNP 10:04
PROVIDERS: Visit Provider Obstetrics & Gynecology
DX: Z01.419 Encounter for gynecological examination (general) (routine) without abnormal findings (principal); Z11.51 Encounter for screening for human papillomavirus (HPV); R32 Unspecified urinary incontinence
CPT/HCPCS: 87086; 87088; 87186; 87624; 87625; 88142

== ENCOUNTER 2022-05-16 15:45 | Outpatient (REF) | payer OTHER, SELFPAY | END 2022-05-16 15:46 | disposition home or self-care (01) | LOC: HO.MRI 15:45 | PROVIDERS: Visit Provider Obstetrics & Gynecology | DX: Z13.89 Encounter for screening for other disorder (principal) ==

== ENCOUNTER 2022-05-23 12:43 | Outpatient (REF) | payer OTHER, SELFPAY | END 2022-05-23 12:44 | disposition home or self-care (01) | LOC: HO.HMGCLDS 12:43 | PROVIDERS: PCP Internal Medicine; Visit Provider Obstetrics & Gynecology | DX: N39.0 Urinary tract infection, site not specified (principal) | CPT/HCPCS: 87086; 87088; 87186 ==

== ENCOUNTER 2022-05-29 11:14 | Outpatient (REF) | payer OTHER, SELFPAY | END 2022-05-29 11:15 | disposition home or self-care (01) | LOC: HO.LNP 11:14 | PROVIDERS: Visit Provider Obstetrics & Gynecology | DX: A63.0 Anogenital (venereal) warts (principal); B97.7 Papillomavirus as the cause of diseases classified elsewhere | CPT/HCPCS: 57456; 88305 ==

== ENCOUNTER 2022-06-06 15:05 | Outpatient (REF) | payer OTHER, SELFPAY ==
--- NOTE | ~2022-06-06 | MM_ITS ---
EXAMINATION: MM SCREENING DIGITAL BREAST TOMOSYNTHESIS, BILATERAL CLINICAL INFORMATION: Screening. Asymptomatic. Benign left stereotactic biopsy. The lifetime risk of breast cancer based on the Tyrer-Cuzick Model is 7.9%. COMPARISON: Mammography: 06/23/2021 and studies dating back to 05/25/2016. TECHNIQUE: Digital breast tomosynthesis is performed in both the craniocaudal and mediolateral oblique views along with computer-aided detection (CAD). Synthesized 2D images are generated from the tomosynthesis. FINDINGS: There are scattered areas of fibroglandular density (ACR BI-RADS breast composition Category b). Stable post-surgical scarring is seen within the upper outer aspect of the right breast. There is multiplicity and bilaterality of calcifications which are essentially stable. No new abnormal dominant mass or more suspicious grouping of calcifications is appreciated. There is a stable circumscribed density seen about the superior left breast. MM/MM tomosynthesis screening BI IMPRESSION: No significant changes from prior exam. ASSESSMENT: BI-RADS 2: Benign. RECOMMENDATION: Routine annual mammography screening. This patient's information was entered into a reminder system with a target due date for their next mammogram.
== END 2022-06-06 15:06 | disposition home or self-care (01) ==
LOC: HO.MAMMO 15:05
PROVIDERS: PCP Internal Medicine; Visit Provider Obstetrics & Gynecology
DX: Z12.31 Encounter for screening mammogram for malignant neoplasm of breast (principal)
CPT/HCPCS: 77063; 77067

== ENCOUNTER 2022-06-14 11:16 | Outpatient (REF) | payer OTHER, SELFPAY ==
[2022-06-14 13:51] LABS: MANUAL DIFF FLAG NO
[2022-06-14 13:59] LABS: Basophils Percent Auto 0.4 % (0-2); Eosinophils Absolute Auto 0.2 X10*3/uL (0.0-0.4); Eosinophils Percent Auto 1.6 % (0-4); Hematocrit 42.8 % (37.0-47.0); Hemoglobin 13.7 g/dl (12.0-16.0); Imm Gran Abs Auto 0.06 X10*3/uL (0.00-0.03); Imm Gran Pct Auto 0.5 % (0.0-0.4); Lymphocytes Absolute Auto 2.5 X10*3/uL (1.2-4.9); Lymphocytes Percent Auto 22.4 % (20-40); Monocytes Absolute Auto 0.7 X10*3/uL (0.1-1.2); Monocytes Percent Auto 5.8 % (2-11); Neutrophils Absolute Auto 7.8 x10*3/uL (2.0-8.3); Neutrophils Percent Auto 69.3 % (45-73); Platelet Count 306 X10*3/uL (160-400); Red Blood Count 5.49 X10*6/uL (4.20-5.50); Red Cell Distribution Width 14.5 % (11.0-16.0); White Blood Count 11.2 X10*3/uL (4.8-10.8)
[2022-06-14 14:11] LABS: Appearance Urine Cloudy; Color Urine Yellow; Glucose Urine UA Negative (Negative); Leukocyte Esterase Urine Small (1+) (Negative); Nitrite Urine Negative (Negative); Specific Gravity - Urine 1.015 (1.005-1.025); UMIC TRIGGER UA YES; UMIC TRIGGER UACC YES; Urine Blood Negative (Negative); Urine Ketones Negative (Negative); Urine Protein Negative (Neg-Trace)
[2022-06-14 14:14] LABS: Bacteria Urine 4+ (None Seen); Hyaline Casts Urine 0-2 /LPF (0-2); RBC Urine 0-2 /HPF (0-2); UACC Culture Trigger YES
[2022-06-14 14:18] LABS: Alanine Aminotransferase 33 U/L (0-31); Albumin Level 4.2 g/dL (3.5-5.0); Alkaline Phosphatase 112 U/L (39-117); Anion Gap 15 (12-20); Aspartate Amino Transferase 22 U/L (5-31); Bilirubin Total 0.4 mg/dL (0.0-1.0); Blood Urea Nitrogen 11 mg/dL (9-16); Calcium 9.4 mg/dL (8.4-10.2); Carbon Dioxide 26 mmol/L (22-29); Chloride 104 mmol/L (96-108); Cholesterol 149 mg/dL; Estimated Glomerular Filt Rate > 60; Glucose Fasting 131 mg/dL (60-99); HDL Cholesterol 33 mg/dL; LDL Cholesterol Calculated 97 mg/dl; Potassium 4.3 mmol/L (3.3-5.1); Sodium 141 mmol/L (135-145); Total Protein 7.1 g/dL (6.5-8.0); Triglycerides 99 mg/dL
[2022-06-14 15:05] LABS: Creatinine Urine 96.18 mg/dL; Microalbum/Creatinine Ratio Ur 21.8 ug/mg cr
== END 2022-06-14 11:17 | disposition home or self-care (01) ==
LOC: HO.HMGCLDS 11:16
PROVIDERS: PCP Internal Medicine; Visit Provider Internal Medicine
DX: Z00.00 Encounter for general adult medical examination without abnormal findings (principal); E78.5 Hyperlipidemia, unspecified; E11.9 Type 2 diabetes mellitus without complications
CPT/HCPCS: 36415; 80053; 80061; 81001; 82043; 85025; 87086; 87088; 87186

== ENCOUNTER 2022-08-14 13:01 | Outpatient (REF) | payer OTHER, SELFPAY | END 2022-08-14 13:02 | disposition home or self-care (01) | LOC: HO.LAB 13:01 | PROVIDERS: PCP Internal Medicine; Visit Provider Urology | DX: N39.0 Urinary tract infection, site not specified (principal); R32 Unspecified urinary incontinence | CPT/HCPCS: 51798; 87086; 87088; 87186 ==

== ENCOUNTER 2022-09-11 16:23 | Outpatient (REF) | payer OTHER, SELFPAY ==
--- NOTE | ~2022-09-11 | CT_ITS ---
EXAMINATION: CT ABDOMEN AND PELVIS WITHOUT CONTRAST CLINICAL INFORMATION: UTI. COMPARISON: None TECHNIQUE: Multidetector volumetric imaging was performed from the superior aspect of the liver through the pubic symphysis. Sagittal and coronal reformatted images were obtained on the technologist's workstation. This CT examination was performed using dose optimization techniques as appropriate, variously including the following: *Automated exposure control *Adjustment of mA and/or kV according to patient size (this includes techniques or standardized protocols for targeted exams where dose is matched to indication/reason for exam; i.e. extremities or head) *Use of iterative reconstruction technique DLP: 1285 mGy-cm FINDINGS: LUNG BASES: The lung bases are clear LIVER, GALLBLADDER, AND BILIARY TREE: The liver is normal in size, shape, and attenuation. No focal hepatic lesion or biliary ductal dilatation is present. The gallbladder is unremarkable with no evidence of radiopaque gallstones, gallbladder wall thickening, or obvious pericholecystic inflammatory changes. PANCREAS: Unremarkable. SPLEEN: Unremarkable. ADRENAL GLANDS: Unremarkable. KIDNEYS AND URETERS: The kidneys are normal in size, shape, and attenuation. There are 3 minute nonobstructive calculi upper pole left kidney. No additional calculi seen. No caliectasis or hydronephrosis seen. BLADDER: Unremarkable. GASTROINTESTINAL TRACT: There is scattered stool and gas seen throughout the colon without significant distention. The small bowel loops are normal caliber. No inflammatory process, free air or free fluid seen. ABDOMINAL WALL: No significant hernia is appreciated. LYMPH NODES: Normal. VASCULAR: Unremarkable. PELVIC VISCERA: There are multiple phleboliths in the pelvis. There is an exophytic lesion along the right uterus likely fibroid with scattered calcification. OSSEOUS STRUCTURES: There are degenerative disc changes with vacuum disc phenomena at L1-L2 through L4-L5 disc levels with ventral and posterior spondylosis. No aggressive lytic or sclerotic process seen. CT/CT abdomen pelvis wo IV con IMPRESSION: 1. No acute intra-abdominal process seen. 2. 3 mm nonobstructive radiopaque calculi upper pole left kidney. 3. Mild constipation. Fleischner guidelines were followed.
== END 2022-09-11 16:24 | disposition home or self-care (01) ==
LOC: HO.CT 16:23
PROVIDERS: PCP Internal Medicine; Visit Provider Urology
DX: N39.0 Urinary tract infection, site not specified (principal)
CPT/HCPCS: 74176

== ENCOUNTER → 2022-09-28 10:38 | Outpatient (BNVA) | payer OTHER, SELFPAY | PROVIDERS: PCP Internal Medicine; Visit Provider Urology | DX: N39.0 Urinary tract infection, site not specified (principal); N32.81 Overactive bladder; N20.0 Calculus of kidney; R32 Unspecified urinary incontinence | CPT/HCPCS: 52000 ==

== ENCOUNTER → 2022-11-01 08:34 | Outpatient (BNVA) | payer OTHER, SELFPAY | PROVIDERS: PCP Internal Medicine; Visit Provider Urology | DX: Z13.89 Encounter for screening for other disorder (principal) ==

== ENCOUNTER 2022-12-11 15:51 | Outpatient (REF) | payer OTHER, SELFPAY ==
[2022-12-11 18:38] LABS: Appearance Urine Cloudy; Color Urine Yellow; Glucose Urine UA Negative (Negative); Leukocyte Esterase Urine Small (1+) (Negative); Nitrite Urine Positive (Negative); PH 5.5 (5.0-9.0); UMIC TRIGGER UA YES; Urine Blood Negative (Negative); Urine Ketones Trace mg/dL (Negative); Urine Protein Negative (Neg-Trace)
[2022-12-11 19:39] LABS: Bacteria Urine 2+ (None Seen); Hyaline Casts Urine 0-2 /LPF (0-2); RBC Urine >20 /HPF (0-2)
== END 2022-12-11 15:52 | disposition home or self-care (01) ==
LOC: HO.LAB 15:51
PROVIDERS: Visit Provider Urology
DX: N39.0 Urinary tract infection, site not specified (principal)
CPT/HCPCS: 81001; 87086; 87088; 87186

== ENCOUNTER 2022-12-27 15:51 | Outpatient (REF) | payer OTHER, SELFPAY ==
--- NOTE | ~2022-12-27 | US_ITS ---
EXAMINATION: US RETROPERITONEAL LIMITED (RENAL ONLY) CLINICAL INFORMATION: Calculus of kidney. COMPARISON: CT abdomen and pelvis 09/11/2022. TECHNIQUE: Real-time imaging of the kidneys. FINDINGS: RIGHT KIDNEY: 12.9 x 5.1 x 5.4 cm (SAG x AP x TRV). The kidney is normal in size, contour, and echogenicity. Renal cortical thickness is normal. No calculi or focal parenchymal lesions. No hydronephrosis. LEFT KIDNEY: 13.3 x 6.9 x 5.6 cm (SAG x AP x TRV). The kidney is normal in size, contour, and echogenicity. Renal cortical thickness is normal. No focal parenchymal lesions or hydronephrosis. A possible 6 mm nonobstructing lower pole renal stone difficult to definitively discern in 2 planes, not previously seen. US/US renal BI IMPRESSION: A possible 6 mm nonobstructing left lower pole renal stone difficult to definitively discern in 2 planes, not previously seen.
== END 2022-12-27 15:52 | disposition home or self-care (01) ==
LOC: HO.US 15:51
PROVIDERS: PCP Internal Medicine; Visit Provider Urology
DX: N20.0 Calculus of kidney (principal); N39.0 Urinary tract infection, site not specified
CPT/HCPCS: 76775

== ENCOUNTER 2023-01-08 14:55 | Outpatient (AMB) | payer OTHER, SELFPAY ==
--- NOTE | 2023-01-08 15:19 | MHC.OFFVIS ---
Intake Intake Visit Reasons: 4m follow up Intake Note: Patient is present for PVR/ Urology Med: Estradiol, Oxybutynin, Antibiotic Allergy: None Blood Thinner: None PVR: 16ml Patient states that she is constantly urinating on herself. Every time she stands up she will urinate. Allergies latex [LATEX] Allergy (Intermediate, Verified 01/08/23 15:21) RASH dust Allergy (Unknown, Uncoded 01/08/23 15:21) Unknown pollen Allergy (Unknown, Uncoded 01/08/23 15:21) Unknown Medication List - Last Reconciled 01/08/23 by Noel Orlando MD ascorbic acid (vitamin C) (Vitamin C) 500 mg PO DAILY atorvastatin 20 mg PO DAILY clotrimazole-betamethasone 1-0.05 % 1 appl topical BID 5 days estradiol (Vagifem) 10 mcg vaginal 2XW fexofenadine 60 mg PO BID flash glucose sensor (FreeStyle Lynsey 14 Day Sensor kit) As directed fluticasone propionate 50 mcg/actuation 1 spray intranasal BID fosfomycin tromethamine 1 packet PO Q3D 6 days insulin glargine (Lantus Solostar U-100 Insulin) 45 units (0.45 mL) subcut DAILY 30 days insulin lispro (Humalog KwikPen (U-100) Insulin) 4 to 16 unts before each meal based on sliding scale subcut 3 times a day; 30 days liraglutide (Victoza 2-Zachary) 1.8 mg (0.3 mL) subcut DAILY lorazepam 0.5 mg PO QID PRN metformin 1,000 mg PO BID naproxen 500 mg PO BID nitrofurantoin monohyd/m-cryst 100 mg (Macrobid) 100 mg PO BEDTIME 30 days pen needle, diabetic (BD Anaya 2nd Gen Pen Needle) 5 times a day sertraline 100 mg PO DAILY sertraline 50 mg PO DAILY solifenacin (Vesicare) 10 mg PO BID HPI HPI Comments History of Present Illness Details Maranda is a 62-year-old female who presents to the office for follow-up, recurrent UTI's, UI, Urgency, atrophic vaginitis and kidney stones. 01/08/23- --Review of chart: LV?11/01/22--The patient is taking Keflex 250 mg daily with minimal benefits and reported UTI symptoms on 10/30/2022. Urine culture was ordered on 10/30/2022.Prior to now, the patient had stopped using estrogen cream, but has resumed it again. The patient is taking oxybutynin 15 mg once a day and request for higher dose. Complains having lower back pain and urinary leakage before using the bathroom. Used OTC urine test strips which turned purple indicating positive for UTI. The patient is daily using pads. Reports occasional constipation. States having constipation and face rashes before the UTI. Sates consuming adequate amount of water and has reduced her coffee consumption. Mentions having high fiber and green leafy vegetable diet. Plan:Patient was educated regarding correct application of estrogen cream. Alternative option of vaginal suppository was given to which the patient agreed. Vagifem 10 mcg twice a week was ordered. Orders were written for oxybutynin 10 mg twice a day. She was notified that it can cause constipation. Advised to take OTC stool softener/Miralax. Renal US was ordered. Will discuss ESWL procedure post results. Follow-up in 2 months. 01/08/23-- The patient is taking oxybutynin 10 mg twice a day with minimal improvement. States urinary leakage when she goes from sitting to standing and associated with urgency, rare urinary leakage with coughing and sneezing. States having occasional lower back pain and uses hot water bag to manage it, likely musculoskeletal. The patient on Abx suppressive therapy, nitrofurantion daily, denies UTI symptoms. States using occasional estrogne vaginal suppository 2x a week. Renal US results reviewed?12/27/22-- calcification was noted in the left kidney which was not visualized well perthe report. Evaluation today-- pt did not provide urine specimen. Bladder scan PVR: 16 mL. I discussed various alternative treatment options to treat bladder spasms including neuromodulation, bladder pacemaker and bladder Botox injections. Plan: Vesicare 10 mg BID was ordered. Discontinue oxybutynin 10 mg. Continue Vagifem 10 mcg twice a week. 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 Gender identity: Female Female Reproductive History Menstrual Age of Menarche: 10 Review of Systems Const All systems reviewed & are unremarkable except as noted in HPI and below Reports no additional complaints Eyes Reports no additional complaints ENT Reports no additional complaints Card Denies dyspnea Resp Denies cough and Denies dyspnea GI Reports no additional complaints Reports no additional complaints Musc Reports no additional complaints Skin/Breast Denies rash and Denies unusual bruising Neuro Reports no additional complaints Psych Reports no additional complaints Endo Reports no additional complaints Jose/Lymph Reports no additional complaints Aller/Immun Reports no additional complaints Physical Exam Const General: cooperative and no acute distress Nutritional Appearance: overweight Orientation/consciousness: patient oriented x3 HEENT Head: Yes normal to inspection, Yes normocephalic and Yes atraumatic Eyes Conjunctivae: conjunctivae normal Neck Neck: Yes normal visual inspection and Yes trachea midline Chest Chest palpation & inspection: normal inspection of the chest Resp Effort & Inspection: normal respiratory effort Cardio Rate: regular rate GI Inspection: Yes normal to inspection Palpation (GI): Soft to palpation Skin General skin exam: no rashes or lesions noted Neuro General: patient oriented x3 Psych Appearance: grossly normal Office Procedures Post Void Residual Post Residual Void Post Void Residual (PVR): 16 [id number] Void Residual by ultrasound Results Reviewed Results Reviewed: Date of Service: 12/27/22 EXAMINATION: US RETROPERITONEAL LIMITED (RENAL ONLY) CLINICAL INFORMATION: Calculus of kidney. COMPARISON: CT abdomen and pelvis 09/11/2022. TECHNIQUE: Real-time imaging of the kidneys. FINDINGS: RIGHT KIDNEY: 12.9 x 5.1 x 5.4 cm (SAG x AP x TRV). The kidney is normal in size, contour, and echogenicity. Renal cortical thickness is normal. No calculi or focal parenchymal lesions. No hydronephrosis. LEFT KIDNEY: 13.3 x 6.9 x 5.6 cm (SAG x AP x TRV). The kidney is normal in size, contour, and echogenicity. Renal cortical thickness is normal. No focal parenchymal lesions or hydronephrosis. A possible 6 mm nonobstructing lower pole renal stone difficult to definitively discern in 2 planes, not previously seen. IMPRESSION: A possible 6 mm nonobstructing left lower pole renal stone difficult to definitively discern in 2 planes, not previously seen. Assessment & Plan Assessment & Plan (1) OAB (overactive bladder): Code(s): N32.81 - Overactive bladder (2) Recurrent urinary tract infection: Code(s): N39.0 - Urinary tract infection, site not specified (3) Urge incontinence: Code(s): N39.41 - Urge incontinence (4) Atrophic vaginitis: Code(s): N95.2 - Postmenopausal atrophic vaginitis Plan Vesicare 10 mg BID was ordered. Discontinue oxybutynin 10 mg. Continue Vagifem 10 mcg twice a week. Instructed to call the nurse line if the patient wants to start with bladder Botox therapy also check with the nurse if pants are covered in the insurance. Orders: Orders AMB Urinalysis Automated Today Z13.9 - Encounter for screening, unspecified AMB Post Void Residual by ultrasound Today N32.81 - Overactive bladder Medications: New solifenacin (Vesicare) 10 mg PO BID 60 tabs 3RF Patient Instructions: The patient had an opportunity to ask questions regarding treatment plan. All questions were answered. Imaging, Laboratory studies and physical exam results were discussed and reviewed in detail. No major barriers to understanding were identified. The patient expressed understanding and agreement with the above treatment plan. The patient is aware they should contact our office by phone for worsening of their current condition or the appearance of new symptoms. Compliance is encouraged with any medications and followup testing that is ordered. It is a privilege to be allowed the opportunity to participate in the urologic care of your patient. If you have any questions or concerns regarding treatment for the above conditions please do not hesitate to contact me. The office telephone contact is [phone]. This note is constructed in part using voice recognition software. While every effort has been made to ensure accuracy manager progressive care errors may have been included. Yours sincerely, Noel Orlando MD Coding Level of Care Code Est Pt Level 4 (51649) Diagnoses OAB (overactive bladder) N32.81 Recurrent urinary tract infection N39.0 Urge incontinence N39.41 Atrophic vaginitis N95.2 CPT Codes Post Residual Void - PVR CPT Code: 74778-[id number] Void Residual by ultrasound ([id number])
== END 2023-01-08 16:07 | disposition home or self-care (01) ==
LOC: HO.HUSH 14:55
PROVIDERS: PCP Internal Medicine; Visit Provider Urology
DX: Z13.9 Encounter for screening, unspecified (principal)
CPT/HCPCS: 99214

== ENCOUNTER → 2023-01-08 14:55 | Outpatient (BNVA) | payer OTHER, SELFPAY | PROVIDERS: PCP Internal Medicine; Visit Provider Urology | DX: N32.81 Overactive bladder (principal); N39.0 Urinary tract infection, site not specified; N39.41 Urge incontinence; N95.2 Postmenopausal atrophic vaginitis | CPT/HCPCS: 51798; 81003 ==

== ENCOUNTER 2023-03-29 11:58 | Outpatient (REF) | payer OTHER, SELFPAY | END 2023-03-29 11:59 | disposition home or self-care (01) | LOC: HO.LAB 11:58 | PROVIDERS: PCP Internal Medicine; Visit Provider Urology | DX: N39.41 Urge incontinence (principal); N39.0 Urinary tract infection, site not specified; R10.9 Unspecified abdominal pain | CPT/HCPCS: 51701; 87086; 87088; 87186 ==

== ENCOUNTER 2023-03-29 11:58 | Outpatient (AMB) | payer OTHER, SELFPAY ==
--- NOTE | 2023-03-29 05:59 | A.OFFVIS_ITS ---
Intake Intake Visit Reasons: incontinence Intake Note: Patient presents today for a follow-up on Incontinence: Botox PA has not been approved yet. Meds- None Allergies to Antibiotic- No Known Allergies Blood Thinner- None Allergies latex [LATEX] Allergy (Intermediate, Verified 04/23/23 13:23) RASH dust Allergy (Unknown, Uncoded 04/23/23 13:23) Unknown pollen Allergy (Unknown, Uncoded 04/23/23 13:23) Unknown Medication List - Last Reconciled 03/29/23 by Noel Orlando MD ascorbic acid (vitamin C) (Vitamin C) 500 mg PO DAILY atorvastatin 20 mg PO DAILY cefuroxime axetil 500 mg PO BID 10 days clotrimazole-betamethasone 1-0.05 % 1 appl topical BID 5 days diaper,brief,adult,disposable (Wings Choice Plus Adult Briefs) As directed 3 per day estradiol (Vagifem) 10 mcg vaginal 2XW fexofenadine 60 mg PO BID flash glucose sensor (FreeStyle Lynsey 14 Day Sensor kit) As directed fluticasone propionate 50 mcg/actuation 1 spray intranasal BID insulin glargine (Lantus Solostar U-100 Insulin) 45 units (0.45 mL) subcut DAILY 30 days insulin lispro (Humalog KwikPen (U-100) Insulin) 4 to 16 unts before each meal based on sliding scale subcut 3 times a day; 30 days liraglutide (Victoza 2-Zachayr) 1.8 mg (0.3 mL) subcut DAILY lorazepam 0.5 mg PO QID PRN metformin 1,000 mg PO BID naproxen 500 mg PO BID pen needle, diabetic (BD Anaya 2nd Gen Pen Needle) 5 times a day sertraline 100 mg PO DAILY sertraline 50 mg PO DAILY HPI HPI Comments History of Present Illness Details Maranda is a 63-year-old female who presents today to the office for a follow up incontinence. 03/29/2023? Maranda is followed today due to incontinence. She thinks she has another bladder infection. She reports urine leakage, which is worsening. She is wearing pads. She is on Mybetriq currently not taking Vesicare. She was last seen by me on 01/08/2023 for atrophic vaginitis. She was advised to discontinue oxybutynin 10 mg, and to continue Vagifem 10 mcg twice a week. I have discussed alternative treatment for OAB to include botox bladder injection. She will follow up with nursing staff if the she wants to proceed with bladder Botox therapy; also check with the nurse if pads/depends are covered in the insurance. I reviewed the urine culture results from 12/11/2022 which came back >100,00 cfu/ml. Review of chart: Renal US results reviewed?12/27/22-- calcification was noted in the left kidney which was not visualized well perthe report. 03/29/2023: Evaluation today?UA? Cathete rized urine was 120 mL. Nitrite positive. 03/29/2023: Plan: Discontinue Myrbetriq. The patient is interested in the Botox bladder injection I am going to give Macrobid 100 mg one dose now. Renal US was ordered for her back pain. 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 Gender identity: Female Female Reproductive History Menstrual Age of Menarche: 10 Review of Systems Const All systems reviewed & are unremarkable except as noted in HPI and below Reports no additional complaints Eyes Reports no additional complaints ENT Reports no additional complaints Card Denies dyspnea Resp Denies cough and Denies dyspnea GI Reports no additional complaints Reports no additional complaints Musc Reports no additional complaints Skin/Breast Denies rash and Denies unusual bruising Neuro Reports no additional complaints Psych Reports no additional complaints Endo Reports no additional complaints Jose/Lymph Reports no additional complaints Aller/Immun Reports no additional complaints Physical Exam Const General: cooperative, healthy appearing and no acute distress Orientation/consciousness: patient oriented x3 HEENT Head: Yes normal to inspection, Yes normocephalic and Yes atraumatic Eyes Conjunctivae: conjunctivae normal Neck Neck: Yes normal visual inspection and Yes trachea midline Chest Chest palpation & inspection: normal inspection of the chest Resp Effort & Inspection: normal respiratory effort Cardio Rate: regular rate GI Inspection: Yes normal to inspection Palpation (GI): Soft to palpation General: No no CVA tenderness External Female Exam: normal external appearance Speculum Exam - Vagina: vagina atrophic Back/Spine/Pelvis Back: No no CVA tenderness Skin General skin exam: no rashes or lesions noted Neuro General: patient oriented x3 Psych Appearance: grossly normal Results Reviewed Results Reviewed: Ordered:? Urine Culture? Procedure?Result?Verified?Site ? Urine Culture? Final?12/15/22 ? ? ?Organism 1?Escherichia coli ? Quant?> 100,000 cfu/mL ? ESBL Note:? NOTE: Extended-Spectrum Beta-Lactamase enzyme present ? E coli? M.I.C.? ? RX? --------- ---?Ampicillin?>=32?R?Ceftriaxone? >=64?R?Ertapenem? <=0.12? ? ?S?Gentamicin?<=1? S?Levofloxacin?1? I?Nitrofurantoin?32?S?Trimethoprim/Sulfamethoxazole? >=320? ? ? R?? Assessment & Plan Assessment & Plan (1) Recurrent urinary tract infection: Code(s): N39.0 - Urinary tract infection, site not specified (2) Flank pain: Code(s): R10.9 - Unspecified abdominal pain (3) Urge incontinence: Code(s): N39.41 - Urge incontinence Plan Discontinue Myrbetriq. The patient is interested in the Botox bladder injection I am going to give Macrobid 100 mg one dose now. Renal US was ordered for her back pain. Orders: Orders Urine Culture 03/29/23 N39.0 - Urinary tract infection, site not specified US renal BI 03/30/23 N39.0 - Urinary tract infection, site not specified, R10.9 - Unspecified abdominal pain Medications: New cefuroxime axetil 500 mg PO BID 20 tabs 0RF 10 days Patient Instructions: The patient had an opportunity to ask questions regarding treatment plan. All questions were answered. Imaging, Laboratory studies and physical exam results were discussed and reviewed in detail. No major barriers to understanding were identified. The patient expressed understanding and agreement with the above treatment plan.? ? ? The patient is aware they should contact our office by phone for worsening of their current condition or the appearance of new symptoms. Compliance is encouraged with any medications and followup testing that is ordered.? ? ? It is a privilege to be allowed the opportunity to participate in the urologic care of your patient. If you have any questions or concerns regarding treatment for the above conditions please do not hesitate to contact me. The office telephone contact is [phone].? ? ? This note is constructed in part using voice recognition software. While every effort has been made to ensure accuracy electronics installer errors may have been included.? ? ? Yours sincerely,? ? ? Noel Orlando MD? ? Coding Level of Care Code Est Pt Level 4 (53078) Diagnoses Recurrent urinary tract infection N39.0 Flank pain R10.9 Urge incontinence N39.41 CPT Codes Bladder/Catheter Procedure - CPT: 61125-Zblyov Bladder Catheter ([id number]) Bladder/Catheter Procedure Details: Under sterile technique a 14 [place]an catheter was passed transurethrally, 120 mL urine drained [id number] Bladder Catheter Procedure code (CPT) selection complete
== END 2023-03-29 13:09 | disposition home or self-care (01) ==
PROVIDERS: PCP Internal Medicine; Visit Provider Urology
DX: N39.0 Urinary tract infection, site not specified (principal); R10.9 Unspecified abdominal pain; N39.41 Urge incontinence
CPT/HCPCS: 51701; 99214

== ENCOUNTER 2023-03-30 15:27 | Outpatient (REF) | payer OTHER, SELFPAY ==
--- NOTE | ~2023-03-30 | US_ITS ---
EXAMINATION: US RETROPERITONEAL LIMITED (RENAL ONLY) CLINICAL INFORMATION: Urinary tract infection.. COMPARISON: None available. TECHNIQUE: Bilateral renal ultrasound performed. FINDINGS: RIGHT KIDNEY: 13.3 x 4.8 x 6.2 cm (SAG x AP x TRV). The kidney is normal in size, contour, and echogenicity. Renal cortical thickness is normal. No calculi or focal parenchymal lesions. No hydronephrosis. LEFT KIDNEY: 12.8 x 6.4 x 5.7 cm (SAG x AP x TRV). The kidney is normal in size, contour, and echogenicity. Renal cortical thickness is normal. No calculi or focal parenchymal lesions. No hydronephrosis. US/US renal BI IMPRESSION: No significant abnormality identified..
== END 2023-03-30 15:28 | disposition home or self-care (01) ==
LOC: HO.HMGCX 15:27
PROVIDERS: PCP Internal Medicine; Visit Provider Urology
DX: N39.0 Urinary tract infection, site not specified (principal); R10.9 Unspecified abdominal pain
CPT/HCPCS: 76775

== ENCOUNTER 2023-04-23 13:12 | Outpatient (REF) | payer OTHER, SELFPAY | END 2023-04-23 13:13 | disposition home or self-care (01) | LOC: HO.LAB 13:12 | PROVIDERS: PCP Internal Medicine; Visit Provider Urology | DX: N39.0 Urinary tract infection, site not specified (principal); N32.81 Overactive bladder | CPT/HCPCS: 52287; 87086; J0585 ==

== ENCOUNTER 2023-04-23 13:12 | Outpatient (AMB) | payer OTHER, SELFPAY ==
--- NOTE | 2023-04-23 13:14 | A.OFFVIS_ITS ---
Intake Intake Visit Reasons: Cysto/Botox Intake Note: Patient presents today for a CYSTOSCOPY/BOTOX INJECTION Procedure: Meds: Vagifem & Pyridium Allergies to Antibiotic: No Known Allergies Blood Thinner: None Urinalysis test clear for Cysto? Disposable Uro-N Cystoscope Cannula: Lot: [id number] Exp: 09/04/2023 Behavior Interventionist Required: No Care Nurse Rn: Care Nurse Rn offered & declined Accompanied by: Self / Same As Patient Allergies latex [LATEX] Allergy (Intermediate, Verified 04/23/23 13:23) RASH dust Allergy (Unknown, Uncoded 04/23/23 13:23) Unknown pollen Allergy (Unknown, Uncoded 04/23/23 13:23) Unknown HPI HPI Comments History of Present Illness Details Maranda is a 63-year-old female who presents today to the office for a follow-up. 04/23/2023? She is followed today for cystoscopy/ Botox injection procedure. She was last seen by me on 03/29/2023 for flank pain. The patient was advised to discontinue Myrbetriq at that time. Renal US was ordered for her back pain at that time. I reviewed the renal ultrasound results from 03/30/2023 revealed no calculi or focal parenchymal lesions. No hydronephrosis. 04/23/2023: I injected Botox injection 1 00 units today in the office. Plan: Will send urine for surveillance culture. Follow up bladder scan PVR with Nurse in 2 weeks. Follow up with me in 3 months. 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 Information consent for procedure given to the patient. Discussed technical aspects, risks, benefits and alternatives in full. Addressed all of the patient's questions and concerns regarding the procedure. The patient demonstrated knowledge and understanding. They wish to proceed with this procedure. Preparation The patient was prepped in the usual manner. A scow captain was present and in the room. Genitalia was prepped with betadine solution in a sterile manner. Lidocaine Jelly 2% was placed into the urethra and 16Fr flexible Olympus cystoscope was inserted into the meatus after adequate lubrication. Procedure Pre-procedure DIAGNOSIS: OAB Post-procedure DIAGNOSIS: OAB PROCEDURE: CYSTOSCOPY, BLADDER BOTOX INJECTION 100 UNITS SURGEON: Noel Orlando MD ANESTHESIA: Local Indications: Details of procedure: The disposible cystoscope was placed transurethrally into the bladder. The right and left ureteral orifices were visualized. There were no suspicious bladder lesions seen. The Botox 100 units was mixed with 10 cc of normal saline and injected transurethrally 1/2 cc to 1 cc per injection into the posterior bladder wall. The cystoscope was removed. The patient voided post procedure. The patient tolerated the procedure well. 33523 - Botox Injection, urethra or bladder DISPOSABLE SCOPE URO-N NEEDLE SCOPE Procedure code (CPT) selection complete Office Meds lidocaine HCl 2 % mucosal jelly in applicator Performing Provider: Noel Orlando MD Performing Location: [facility] [place] [facility] Administered by: Nanda Corea RN on 04/23/23 13:30 Dose Route Admin Location Dispensed Lot Number Expiration Date NDC Sheet Rock Applicator 10 mL intra-urethral 30 mL Comments: 2 in cocktail, 1 to prep pt [id number] 100 unit solution for injection Performing Provider: Noel Orlando MD Performing Location: [facility] [place] [facility] Administered by: Nanda Corea RN on 04/23/23 13:30 Dose Route Admin Location Dispensed Lot Number Expiration Date NDC Sheet Rock Applicator 100 unit transurethral 100 units [id number] 09/06/25 [id number] ALLERGAN/BOTOX naproxen 500 mg tablet Performing Provider: Noel Orlando MD Performing Location: [facility] [place] [facility] Administered by: Nanda Corea RN on 04/23/23 13:30 Dose Route Admin Location Dispensed Lot Number Expiration Date NDC Sheet Rock Applicator 500 mg PO 1 tab Results Reviewed Results Reviewed: Date of Service: 03/30/23 EXAMINATION:? US RETROPERITONEAL LIMITED (RENAL ONLY) CLINICAL INFORMATION: Urinary tract infection.. COMPARISON:? None available. FINDINGS: RIGHT KIDNEY: 13.3 x 4.8 x 6.2 cm (SAG x AP x TRV). The kidney is normal in size, contour, and echogenicity. Renal cortical thickness is normal. No calculi or focal parenchymal lesions. No hydronephrosis. LEFT KIDNEY: 12.8 x 6.4 x 5.7 cm (SAG x AP x TRV). The kidney is normal in size, contour, and echogenicity. Renal cortical thickness is normal. No calculi or focal parenchymal lesions. No hydronephrosis. IMPRESSION:? No significant abnormality identified. Assessment & Plan Assessment & Plan (1) OAB (overactive bladder): Code(s): N32.81 - Overactive bladder Plan Will send urine for culture. Follow up bladder scan PVR with Nurse in 2 weeks. Follow up with me in 3 months. Orders: Orders AMB Urinalysis Automated 04/23/23 Z13.9 - Encounter for screening, unspecified AMB Cystoscopy 04/23/23 N32.81 - Overactive bladder Urine Culture 04/23/23 N39.0 - Urinary tract infection, site not specified Patient Instructions: The patient had an opportunity to ask questions regarding treatment plan. All questions were answered. Imaging, Laboratory studies and physical exam results were discussed and reviewed in detail. No major barriers to understanding were identified. The patient expressed understanding and agreement with the above treatment plan.? ? ? The patient is aware they should contact our office by phone for worsening of their current condition or the appearance of new symptoms. Compliance is encouraged with any medications and followup testing that is ordered.? ? ? It is a privilege to be allowed the opportunity to participate in the urologic care of your patient. If you have any questions or concerns regarding treatment for the above conditions please do not hesitate to contact me. The office telephone contact is [phone].? ? ? This note is constructed in part using voice recognition software. While every effort has been made to ensure accuracy manager costing errors may have been included.? ? ? Yours sincerely,? ? ? Noel Orlando MD? ? Coding Level of Care Code Procedure Only Diagnoses OAB (overactive bladder) N32.81 CPT Codes Cystoscopy - CPT: 40012 - Botox Injection, urethra or bladder ([id number])
== END 2023-04-23 14:23 | disposition home or self-care (01) ==
PROVIDERS: PCP Internal Medicine; Visit Provider Urology
DX: N32.81 Overactive bladder (principal)
CPT/HCPCS: 52287

== ENCOUNTER → 2023-05-07 15:17 | Outpatient (BNVA) | payer OTHER, SELFPAY | PROVIDERS: PCP Internal Medicine; Visit Provider Urology | DX: N32.81 Overactive bladder (principal) | CPT/HCPCS: 51798 ==

== ENCOUNTER 2023-06-13 11:52 | Outpatient (REF) | payer OTHER, SELFPAY ==
[2023-06-13 13:28] LABS: Appearance Urine Clear; Color Urine Yellow; Glucose Urine UA Negative (Negative); Leukocyte Esterase Urine Trace (Negative); Nitrite Urine Positive (Negative); PH 5.5 (5.0-9.0); Specific Gravity - Urine 1.015 (1.005-1.025); UMIC TRIGGER UA YES; Urine Blood Negative (Negative); Urine Ketones Negative (Negative); Urine Protein Negative (Neg-Trace)
[2023-06-13 13:33] LABS: Bacteria Urine 4+ (None Seen); Hyaline Casts Urine 0-2 /LPF (0-2); RBC Urine 0-2 /HPF (0-2); Squamous Epithelial Cell Urine 0-2 /HPF (0-2); WBC Urine 0-5 /HPF (0-5)
== END 2023-06-13 11:53 | disposition home or self-care (01) ==
LOC: HO.HMGCLDS 11:52
PROVIDERS: PCP Internal Medicine; Visit Provider Urology
DX: N39.0 Urinary tract infection, site not specified (principal)
CPT/HCPCS: 81001; 87086; 87088; 87186

== ENCOUNTER 2023-06-14 06:27 | Outpatient (REF) | payer OTHER, SELFPAY ==
[2023-06-14 11:16] LABS: MANUAL DIFF FLAG NO
[2023-06-14 11:34] LABS: Estimated Average Glucose 160 mg/dL; Hemoglobin A1c % 7.2 % (<6.0)
[2023-06-14 11:40] LABS: Basophils Absolute Auto 0.1 X10*3/uL (0.0-0.2); Basophils Percent Auto 0.4 % (0-2); Eosinophils Absolute Auto 0.2 X10*3/uL (0.0-0.4); Eosinophils Percent Auto 1.5 % (0-4); Hematocrit 40.3 % (37.0-47.0); Imm Gran Abs Auto 0.08 X10*3/uL (0.00-0.03); Imm Gran Pct Auto 0.7 % (0.0-0.4); Lymphocytes Absolute Auto 2.6 X10*3/uL (1.2-4.9); Lymphocytes Percent Auto 21.4 % (20-40); Mean Corpuscular HGB Conc 32.3 g/dl (31.0-35.0); Mean Corpuscular Hemoglobin 25.9 pg (27.0-33.0); Mean Corpuscular Volume 80.3 fL (80.0-98.0); Mean Platelet Volume 9.8 fL (9.4-12.3); Monocytes Absolute Auto 0.7 X10*3/uL (0.1-1.2); Monocytes Percent Auto 5.7 % (2-11); Neutrophils Absolute Auto 8.4 x10*3/uL (2.0-8.3); Neutrophils Percent Auto 70.3 % (45-73); Platelet Count 297 X10*3/uL (160-400); Red Blood Count 5.02 X10*6/uL (4.20-5.50); Red Cell Distribution Width 14.6 % (11.0-16.0)
[2023-06-14 11:45] LABS: Alanine Aminotransferase 28 U/L (0-31); Alkaline Phosphatase 99 U/L (39-117); Anion Gap 12 (12-20); Aspartate Amino Transferase 19 U/L (5-31); Bilirubin Total 0.4 mg/dL (0.0-1.0); Blood Urea Nitrogen 11 mg/dL (9-16); Calcium 9.5 mg/dL (8.4-10.2); Carbon Dioxide 26 mmol/L (22-29); Chloride 106 mmol/L (96-108); Cholesterol 139 mg/dL (<200); Estimated Glomerular Filt Rate > 60; Glucose Fasting 126 mg/dL (60-99); HDL Cholesterol 28 mg/dL (>40); LDL Cholesterol Calculated 89 mg/dL (<100); Potassium 4.1 mmol/L (3.3-5.1); Sodium 140 mmol/L (135-145); Total Protein 7.3 g/dL (6.5-8.0); Triglycerides 112 mg/dL (<150)
== END 2023-06-14 06:28 | disposition home or self-care (01) ==
LOC: HO.HMGCLDS 06:27
PROVIDERS: PCP Internal Medicine; Visit Provider Internal Medicine
DX: Z00.00 Encounter for general adult medical examination without abnormal findings (principal); E78.5 Hyperlipidemia, unspecified; E11.9 Type 2 diabetes mellitus without complications; Z79.4 Long term (current) use of insulin
CPT/HCPCS: 36415; 80053; 80061; 83036; 85025

== ENCOUNTER 2023-06-30 08:23 | Outpatient (REF) | payer OTHER, SELFPAY ==
--- NOTE | ~2023-06-30 | MM_ITS ---
EXAMINATION: MM SCREENING DIGITAL BREAST TOMOSYNTHESIS, BILATERAL CLINICAL INFORMATION: Screening. Asymptomatic. The patient has a history of bilateral benign excisional biopsies and prior benign percutaneous biopsies of the left breast. COMPARISON: Mammography: This study is compared with prior exams dating back to 2018. TECHNIQUE: Digital breast tomosynthesis is performed in both the craniocaudal and mediolateral oblique views along with computer-aided detection (CAD). Synthesized 2D images are generated from the tomosynthesis. FINDINGS: There are scattered areas of fibroglandular density (ACR BI-RADS breast composition Category b). There are no significant masses, abnormal calcifications, or other abnormalities. There are benign calcifications in each breast. There are 2 tissue markers from prior benign percutaneous biopsy of the left breast. There are postsurgical changes in the upper outer quadrant of the right breast. MM/MM tomosynthesis screening BI IMPRESSION: No mammographic evidence of malignancy. ASSESSMENT: BI-RADS BI-RADS 2 - Benign Findings RECOMMENDATION: Routine annual mammography screening. 1 year F/U This examination should not preclude the clinical evaluation of a suspicious palpable abnormality. This patient's information was entered into a reminder system with a target due date for their next mammogram.
== END 2023-06-30 08:24 | disposition home or self-care (01) ==
LOC: HO.MAMMO 08:23
PROVIDERS: PCP Internal Medicine; Visit Provider Internal Medicine
DX: Z12.31 Encounter for screening mammogram for malignant neoplasm of breast (principal)
CPT/HCPCS: 77063; 77067

== ENCOUNTER → 2023-06-30 08:30 | Outpatient (BNV) | payer OTHER, SELFPAY | PROVIDERS: PCP Internal Medicine; Visit Provider Radiology Diagnostic Radiology | DX: Z12.31 Encounter for screening mammogram for malignant neoplasm of breast (principal) | CPT/HCPCS: 77063; 77067 ==

== ENCOUNTER 2023-08-01 11:34 | Outpatient (AMB) | payer OTHER, SELFPAY ==
--- NOTE | 2023-08-01 11:50 | A.OFFVIS_ITS ---
Intake Intake Visit Reasons: 3m follow up Intake Note: Patient is present for OAB: Urology Med: Estradiol, Oxybutynin & Botox Antibiotic Allergy: None Blood Thinner: None PVR: 55ml Button Facing Machine Operator Required: No Accompanied by: Self / Same As Patient Allergies latex [LATEX] Allergy (Intermediate, Verified 08/21/23 08:41) RASH dust Allergy (Unknown, Uncoded 08/21/23 08:41) Unknown pollen Allergy (Unknown, Uncoded 08/21/23 08:41) Unknown Medication List - Last Reconciled 08/01/23 by Noel Orlando MD ascorbic acid (vitamin C) (Vitamin C) 500 mg PO DAILY atorvastatin 20 mg PO DAILY cefuroxime axetil 500 mg PO BID 10 days clotrimazole-betamethasone 1-0.05 % 1 appl topical BID 5 days diaper,brief,adult,disposable (Wings Choice Plus Adult Briefs) As directed 3 per day estradiol (Vagifem) 10 mcg vaginal 2XW fexofenadine 60 mg PO BID flash glucose sensor (FreeStyle Lynsey 14 Day Sensor kit) As directed fluticasone propionate 50 mcg/actuation 1 spray intranasal BID fosfomycin tromethamine 3 grams PO Q3D 3 doses insulin glargine (Lantus Solostar U-100 Insulin) 45 units (0.45 mL) subcut DAILY 30 days insulin lispro (Humalog KwikPen (U-100) Insulin) 4 to 16 unts before each meal based on sliding scale subcut 3 times a day; 30 days liraglutide (Victoza 2-Zachary) 1.8 mg (0.3 mL) subcut DAILY lorazepam 0.5 mg PO QID PRN metformin 1,000 mg PO BID methenamine hippurate 1 g PO DAILY 90 days pen needle, diabetic (BD Anaya 2nd Gen Pen Needle) 5 times a day sertraline 100 mg PO DAILY sertraline 50 mg PO DAILY HPI HPI Comments History of Present Illness Details Maranda is a 63-year-old female who presents today to the office for a follow-up. 08/01/2023? She is followed today for OAB and recurrent UTI's. The patient previously had botox 100 units in April with minimal improvement in urgency, and she is still on Myrbetriq PO. Review of chart: Renal ultrasound results from 03/30/2023 revealed no calculi or focal parenchy mal lesions. No hydronephrosis. 04/23/2023: Botox injection 100 units i n the office. Plan:fosfomycin q3dy - 3 doses Schedule outpatient botox 200 units. 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 Gender identity: Female Female Reproductive History Menstrual Age of Menarche: 10 Review of Systems Const All systems reviewed & are unremarkable except as noted in HPI and below Reports no additional complaints Eyes Reports no additional complaints ENT Reports no additional complaints Card Denies dyspnea Resp Denies cough and Denies dyspnea GI Reports no additional complaints Reports no additional complaints Musc Reports no additional complaints Skin/Breast Denies rash and Denies unusual bruising Neuro Reports no additional complaints Psych Reports no additional complaints Endo Reports no additional complaints Jose/Lymph Reports no additional complaints Aller/Immun Reports no additional complaints Office Procedures Post Void Residual Post Residual Void Post Void Residual (PVR): 55 [id number] Void Residual by ultrasound Results AMB Urinalysis, Automated UA Leukoctes 0 Arnaldo/uL Last Edit by JAVIER Alexander on 08/01/23 12:18 UA Nitrite Positive Last Edit by JAVIER Alexander on 08/01/23 12:18 UA Urobilinogen 0.2 mg/dL Last Edit by Naomie Lopez A on 08/01/23 12:1 8 UA Protein 0 mg/dL Last Edit by Naomie Lopez A on 08/01/23 12:18 UA pH 6.0 Last Edit by Naomie Lopez A on 08/01/23 12:18 UA Blood 0 Ramos/uL Last Edit by Naomie Lopez A on 08/01/23 12:18 UA Specific [place] 1.015 Last Edit by Naomie Lopez, A on 08/01/23 12: 18 UA Ketone Negative Last Edit by Naomie Lopez A on 08/01/23 12:18 UA Bilirubin 0 mg/dL Last Edit by Naomie Lopez A on 08/01/23 12:18 UA Glucose 0 mg/dL Last Edit by Naomie Lopez A on 08/01/23 12:18 Results Reviewed Results Reviewed: Laboratory Last Values Urine pH (Auto) 6.0 08/01/23 12:15 Specific [place] (Auto) 1.015 08/01/23 12:15 Urine Protein (Auto) 0 mg/dL 08/01/23 12:15 Glucose (UA)(Auto) 0 mg/dL 08/01/23 12:15 Urine Ketones (Auto) Negative 08/01/23 12:15 Urine Blood (Auto) 0 Ramos/uL 08/01/23 12:15 Urine Nitrite (Auto) Positive 08/01/23 12:15 Urine Bilirubin (Auto) 0 mg/dL 08/01/23 12:15 Urine Urobilinogen (Auto) 0.2 mg/dL 08/01/23 12:15 Leukocyte Esterase (Auto) 0 Arnaldo/uL 08/01/23 12:15 Assessment & Plan Assessment & Plan (1) OAB (overactive bladder): Code(s): N32.81 - Overactive bladder (2) UTI (urinary tract infection): Code(s): N39.0 - Urinary tract infection, site not specified Plan Plan:fosfomycin q3dy - 3 doses Schedule outpatient botox 200 units. Orders: Orders AMB Urinalysis Automated 08/01/23 Z13.9 - Encounter for screening, unspecified AMB Post Void Residual by ultrasound 08/01/23 N39.8 - Other specified disorders of urinary system Urine Culture 08/01/23 N39.0 - Urinary tract infection, site not specified Medications: New fosfomycin tromethamine 3 grams PO Q3D 3 ea 0RF uti 3 doses Discontinued cefuroxime axetil Discontinued Reason: Patient Completed Course 500 mg PO BID 10 days 20 tabs 0RF Coding Level of Care Code Est Pt Level 4 (90638) Diagnoses OAB (overactive bladder) N32.81 UTI (urinary tract infection) N39.0 CPT Codes Post Residual Void - PVR CPT Code: 79759-Vixn Void Residual by ultrasound ([id number])
== END 2023-08-01 12:54 | disposition home or self-care (01) ==
PROVIDERS: PCP Internal Medicine; Visit Provider Urology
DX: N32.81 Overactive bladder (principal); N39.0 Urinary tract infection, site not specified
CPT/HCPCS: 99214

== ENCOUNTER 2023-08-01 11:34 | Outpatient (REF) | payer OTHER, SELFPAY | END 2023-08-01 11:35 | disposition home or self-care (01) | LOC: HO.LAB 11:34 | PROVIDERS: PCP Internal Medicine; Visit Provider Urology | DX: N39.0 Urinary tract infection, site not specified (principal); N32.81 Overactive bladder; Z79.4 Long term (current) use of insulin; Z79.84 Long term (current) use of oral hypoglycemic drugs; Z79.899 Other long term (current) drug therapy | CPT/HCPCS: 51798; 81003; 87086; 87088; 87186 ==

== ENCOUNTER 2023-08-21 07:15 | Day surgery (SDC) | payer OTHER, SELFPAY ==
--- NOTE | 2023-08-20 10:18 | HO.ANESPROP2 ---
HPI - Anesthesia Eval Consult details Narrative: 63yo F for Cystoscopy Bladder botox Anesthesia Pre-Procedure Meds Is the patient on any of the following meds?: Semaglutide (Ozempic) and Any other SGL-1 drugs or drugs that delay gastric emptying (Victoza/Liraglutide - daily injection) If Yes to any meds - educate patient: Pt education - increased risk of aspiration and Pt education - possibility of cancelled proc at provider's discretion PMFSH Active Problems Active Problems: All Active Problems (Updated 03/29/23 @ 12:34 by Noel Orlando MD) Flank pain (Acute) Atrophic vaginitis (Acute) Urge incontinence (Acute) Kidney stone on left side (Acute) OAB (overactive bladder) (Acute) Recurrent urinary tract infection (Acute) HPV in female (Acute) At high risk for breast cancer (Acute) UTI (urinary tract infection) (Acute) Skin candidiasis (Acute) Well woman exam (Acute) Urine incontinence (Acute) Abnormal mammogram (Acute) At high risk for breast cancer (Acute) Tricompartment osteoarthritis of knees, bilateral (Acute) Morbid obesity (Acute) Breast calcification, left (Acute) Diabetes type 2, uncontrolled (Acute) Past Medical History Medical History Elevated cholesterol Morbid obesity Breast calcification, left Arthritis Anxiety Tendonitis Diabetes type 2, uncontrolled Family History Family History Mother Kidney carcinoma Family history of problems with anesthesia: No Surgical History Surgical History Hx of right breast biopsy Hx of colonoscopy Hx of section H/O cervical polypectomy History of Problems with Anesthesia: No Social History Social History Household Members Other:: son Housing: House Alcohol intake: never Patient Tobacco Use Status: Never used Tobacco 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: 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 Gender identity: Female Meds Allergies Allergy/AdvReac Type Severity Reaction Status Date / Time latex [LATEX] Allergy Intermediate RASH Verified 08/21/23 08:41 dust Allergy Unknown Unknown Uncoded 08/21/23 08:41 pollen Allergy Unknown Unknown Uncoded 08/21/23 08:41 Home Medications Medication Instructions Recorded Confirmed Last Taken Type lorazepam 0.5 mg tablet 0.5 mg PO QID PRN Anxiety 04/28/21 08/21/23 Unknown History metformin 1,000 mg tablet 1,000 mg PO BID 04/28/21 08/21/23 Unknown History sertraline 50 mg tablet 50 mg PO DAILY 04/28/21 08/21/23 Unknown History fexofenadine 30 mg tablet 60 mg PO BID 06/23/21 08/21/23 Unknown History flash glucose sensor (FreeStyle #1 ea 06/23/21 08/21/23 Unknown History Lynsey 14 Day Sensor kit) fluticasone propionate 50 1 spray intranasal BID 06/23/21 08/21/23 Unknown History mcg/actuation nasal spray,suspension sertraline 100 mg tablet 100 mg PO DAILY 06/23/21 08/21/23 08/21/23 06:30 History semaglutide 1 mg/dose (4 mg/3 mL) 1 mg subcut QWEEK 08/21/23 08/21/23 Unknown History subcutaneous pen injector (Ozempic) semaglutide 1 mg/dose (4 mg/3 mL) 1 mg subcut QWEEK 08/21/23 08/21/23 08/14/23 History subcutaneous pen injector (Ozempic) Assessment and Plan Assessment Anesthesia Assessment: Chart Reviewed Final Anesthetic Review Family History of Problems with Anesthesia: No History of Problems with Anesthesia: No
[2023-08-21 08:49] VITALS: BMI 45.6
[2023-08-21 09:11] VITALS: BP 153/94; PULSE 98; RESP 18; TEMP 37; O2SAT 92
[2023-08-21 09:14] LABS: Glucose, Whole Blood 193 mg/dL (60-115)
[2023-08-21] MEDS: Lactated Ringers 1,000 ML 100 ML IVCONT (09:26)
--- NOTE | 2023-08-21 11:08 | P.CONAN_ITS ---
[facility] Active Problems Active Problems: All Active Problems (Updated 03/29/23 @ 12:34 by Noel Orlando MD) Flank pain (Acute) Atrophic vaginitis (Acute) Urge incontinence (Acute) Kidney stone on left side (Acute) OAB (overactive bladder) (Acute) Recurrent urinary tract infection (Acute) HPV in female (Acute) At high risk for breast cancer (Acute) UTI (urinary tract infection) (Acute) Skin candidiasis (Acute) Well woman exam (Acute) Urine incontinence (Acute) Abnormal mammogram (Acute) At high risk for breast cancer (Acute) Tricompartment osteoarthritis of knees, bilateral (Acute) Morbid obesity (Acute) Breast calcification, left (Acute) Diabetes type 2, uncontrolled (Acute) Past Medical History Medical History Elevated cholesterol Morbid obesity Breast calcification, left Arthritis Anxiety Tendonitis Diabetes type 2, uncontrolled Family History Family History Mother Kidney carcinoma Family history of problems with anesthesia: No Surgical History Surgical History Hx of right breast biopsy Hx of colonoscopy Hx of section H/O cervical polypectomy History of Problems with Anesthesia: No Social History Social History Household Members Other:: son Housing: House Alcohol intake: never Patient Tobacco Use Status: Never used Tobacco Substance Use Type Other:: THC-gummies Are you DNR?: No Advance Directives: No Advance Directives Information Provided: Yes 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: 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 Gender identity: Female Meds Allergies Allergy/AdvReac Type Severity Reaction Status Date / Time latex [LATEX] Allergy Intermediate RASH Verified 08/21/23 08:41 dust Allergy Unknown Unknown Uncoded 08/21/23 08:41 pollen Allergy Unknown Unknown Uncoded 08/21/23 08:41 Active Medications: Current Medications Fentanyl (Fentanyl Citrate/Pf 100 Mcg/2 Ml Vial) 25 mcg IVPUSH Q5M PRN; Protocol PRN Reason: Pain, Moderate(Pain Scale 4-6) Lactated Ringer's (Lr) 1,000 mls @ 100 mls/hr IVCONT .Q10H SORAYA Last Admin: 08/21/23 09:26 Dose: 100 mls/hr Ondansetron HCl (Ondansetron Hcl 4 Mg/2 Ml Vial) 4 mg IVPUSH ONCE PRN PRN Reason: Nausea and Vomiting Home Medications Medication Instructions Recorded Confirmed Last Taken Type lorazepam 0.5 mg tablet 0.5 mg PO QID PRN Anxiety 04/28/21 08/21/23 Unknown History metformin 1,000 mg tablet 1,000 mg PO BID 04/28/21 08/21/23 Unknown History sertraline 50 mg tablet 50 mg PO DAILY 04/28/21 08/21/23 Unknown History fexofenadine 30 mg tablet 60 mg PO BID 06/23/21 08/21/23 Unknown History flash glucose sensor (FreeStyle #1 ea 06/23/21 08/21/23 Unknown History Lynsey 14 Day Sensor kit) fluticasone propionate 50 1 spray intranasal BID 06/23/21 08/21/23 Unknown History mcg/actuation nasal spray,suspension sertraline 100 mg tablet 100 mg PO DAILY 06/23/21 08/21/23 08/21/23 06:30 History semaglutide 1 mg/dose (4 mg/3 mL) 1 mg subcut QWEEK 08/21/23 08/21/23 Unknown History subcutaneous pen injector (Ozempic) semaglutide 1 mg/dose (4 mg/3 mL) 1 mg subcut QWEEK 08/21/23 08/21/23 08/14/23 History subcutaneous pen injector (Ozempic) Exam Height,Weight and Vital Signs: Height 5 ft 6.5 in Weight 130.136 kg Last Vital Signs Temp 98.6 F 08/21/23 09:11 Pulse 98 08/21/23 09:11 Resp 18 08/21/23 09:11 BP 153/94 H 08/21/23 09:11 Pulse Ox 92 08/21/23 09:11 O2 Del Method Room Air 08/21/23 09:11 Pertinent Lab Results Pertinent Lab Results: Laboratory Tests 08/21/23 09:09 POC Glucose 193 H Airway Mallampati Class: I TM Dist: >3cm Neck ROM: Full Heart: rrr Lungs: clear Assessment and Plan Final Anesthetic Review Family History of Problems with Anesthesia: No History of Problems with Anesthesia: No NPO: Yes ASA Class: III Final Preanesthetic Review: No Changes in Pt Med Stat, Meds/Allgs Chart Reviewed, Consent Obtained/Reviewed and Anes Risks/Benef Reviewed Patient Risk: Intermediate Procedure Risk: Low Anesthetic Plan Anesthetic Plan: GA Disposition: Standard PACU
[2023-08-21 12:11] VITALS: BP 143/89; PULSE 93; RESP 18; TEMP 36.9; O2SAT 94
[2023-08-21 12:15] VITALS: BP 131/58; PULSE 95; RESP 16; O2SAT 91
[2023-08-21 12:20] VITALS: BP 107/68; PULSE 96; RESP 16; O2SAT 92
--- NOTE | 2023-08-21 12:24 | W.PM.OPN ---
Operative Note Operative Note Date of Service: 08/21/23 Narrative: PREOP DIAGNOSIS: OAB POSTOP DIAGNOSIS: OAB PROCEDURE: CYSTOSCOPY, BLADDER BOTOX INJECTION 200 UNITS SURGEON: Noel Orlando MD ANESTHESIA: General Indications: The patient previously had Botox bladder injection 100 units with minimal improvements in bladder spasms Details of procedure: The patient was brought into the operating room placed on the OR table in supine position. Rocephen 1 gm IV. General anesthesia was administered. The patient was repositioned into lithotomy position, prepped and draped in the usual sterile fashion. Time-out was done per protocol. A 22 fr cystoscope was placed transurethrally into the bladder. Urine was sent for culture. The right and left ureteral orifices were visualized. There were mild trabeculations noted. There were no suspicious bladder lesions seen. The Botox 100 units x2 was mixed with 10 cc of normal saline in each vial and injected transurethrally 1/2 cc to 1 cc per injection into the posterior bladder wall. The cystoscope was removed. 2% lidocaine urojet was passed transurethrally into the bladder. The patient was brought out of anesthesia and taken to recovery in stable condition. Complications: None Drains: none
[2023-08-21 12:25] VITALS: BP 116/76; PULSE 94; RESP 16; O2SAT 92
[2023-08-21 12:40] VITALS: BP 134/56; PULSE 96; RESP 18; TEMP 36.7; O2SAT 92
== END 2023-08-21 13:55 | disposition home or self-care (01) ==
PROVIDERS: PCP Internal Medicine; Visit Provider Urology
PROC: 3E0K8GC Introduction of Other Therapeutic Substance into Genitourinary Tract, Via Natural or Artificial Opening Endoscopic (ICD-10-PCS; CPT 52287; principal; 2023-08-21 10:00)
DX: N32.81 Overactive bladder (principal); N32.89 Other specified disorders of bladder; Z80.51 Family history of malignant neoplasm of kidney; E11.9 Type 2 diabetes mellitus without complications; E78.00 Pure hypercholesterolemia, unspecified; F41.1 Generalized anxiety disorder; E66.01 Morbid (severe) obesity due to excess calories; Z79.84 Long term (current) use of oral hypoglycemic drugs; Z79.85 Long-term (current) use of injectable non-insulin antidiabetic drugs; Z79.899 Other long term (current) drug therapy; Z91.040 Latex allergy status
CPT/HCPCS: 52287; 82947; 87086; 87088; 87186; J0585; J0696; J1100; J2405; J2704; J2795; J3010

== ENCOUNTER → 2023-08-21 07:15 | Outpatient (BNV) | payer OTHER, SELFPAY | PROVIDERS: PCP Internal Medicine; Visit Provider Urology | DX: N32.81 Overactive bladder (principal) | CPT/HCPCS: 52287 ==

== ENCOUNTER → 2023-09-04 13:16 | Outpatient (BNVA) | payer OTHER, SELFPAY | PROVIDERS: PCP Internal Medicine; Visit Provider Urology | DX: N32.81 Overactive bladder (principal) | CPT/HCPCS: 51798 ==

== ENCOUNTER 2023-10-04 13:41 | Outpatient (REF) | payer OTHER, SELFPAY ==
[2023-10-12 02:49] LABS: HPV mRNA E6/E7 rflx Not Detected (Not Detected)
== END 2023-10-04 13:42 | disposition home or self-care (01) ==
LOC: HO.LNP 13:41
PROVIDERS: PCP Internal Medicine; Visit Provider Obstetrics & Gynecology
DX: Z01.419 Encounter for gynecological examination (general) (routine) without abnormal findings (principal); Z11.51 Encounter for screening for human papillomavirus (HPV)
CPT/HCPCS: 87624; 88142

== ENCOUNTER 2023-10-04 13:41 | Outpatient (AMB) | payer OTHER, SELFPAY ==
[2023-10-04 13:47] VITALS: BP 128/72; BMI 43.5
--- NOTE | 2023-10-04 13:47 | MHC.OFFVIS ---
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 No complaints. Last Pap/HPV was negative/HPV pause in 04/27, this was followed by colpo which was negative, ECC negative Last Mammogram was BI-RADS 2 in 06/28 Last Colonoscopy was in 2021 [facility] Medical History Elevated cholesterol Morbid obesity Breast calcification, left Arthritis Anxiety Tendonitis Diabetes type 2, uncontrolled Surgical History Hx of right breast biopsy Hx of colonoscopy Hx of section H/O cervical polypectomy Family History Mother Kidney carcinoma Social History Household Members Other:: son Housing: House Alcohol intake: never Patient Tobacco Use Status: Never used Tobacco Patient : No 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: 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 Gender identity: Female Female Reproductive History Menstrual Age of Menarche: 10 Duration of menses: 3-5 days control method: none Menopause type: natural Total pregnancies: 2 Full term: 2 Number of Living Children: 2 Date of last pap smear: 05/03/22 History of abnormal pap smear: Yes (HPV positive) History of STI: No Date of Mammogram: 06/30/23 Review of Systems Const All systems reviewed & are unremarkable except as noted in HPI and below Card Reports as per HPI Resp Reports as per HPI GI Reports as per HPI and Reports no additional complaints Reports as per HPI Physical Exam Vital Signs: Last Vital Signs BP 128/72 10/04/23 13:47 BMI result Body Mass Index 43.5 Const General: cooperative, healthy appearing and comfortable Chest Chest palpation & inspection: normal inspection of the chest and normal palpation of entire chest wall Breast/axilla inspection: normal inspection of the breasts and normal inspection of the axillae Breast/axilla palpation: normal palpation of the breasts, normal palpation of the axillae and no axillary lymphadenopathy Resp Effort & Inspection: normal respiratory effort Auscultation: clear to auscultation bilaterally Percussion: percussion normal Cardio Palpation: normal PMI Rate: regular rate Rhythm: regular rhythm Heart sounds: no murmurs and no rubs Peripheral pulses: Peripheral pulses 2+ throughout GI Inspection: Yes normal to inspection Palpation (GI): Soft to palpation, nontender, no guarding, not rigid and No hepatosplenomegaly present Percussion: Yes normal to percussion Auscultation: normal bowel sounds Rectal Exam - Female: deferred General: Yes bladder normal to palpation External Female Exam: No lesion Speculum Exam - Vagina: normal appearance of the vagina, normal palpation, normal vaginal discharge and not erythematous Speculum Exam - Cervix: normal appearance of the cervix and normal palpation Bimanual exam- vagina & uterus: normal bimanual exam, normal palpation, uterine size normal, bladder normal to palpation, consistency normal and normal palpation Bimanual Exam- Adnexa, other: normal adnexae, no masses and no tenderness Assessment & Plan Assessment & Plan (1) Well woman exam: Comment: Pap negative/ HPV positive 04/27 Code(s): Z01.419 - Encounter for gynecological examination (general) (routine) without abnormal findings Plan: Co testing done. Counseled the patient about the recommended dietary allowance of 1200 mg of Calcium & 600 IU of vitamin D. Instructions given the patient to schedule next screening Mammogram in 06/28. The patient was instructed to perform monthly self-breast exams and schedule annual exam in a year. All questions answered and the patient verbalized understanding. Coding Level of Care Code Est Pt Prev Care 40-64y(19587) Diagnoses Well woman exam Z01.419
== END 2023-10-04 14:27 | disposition home or self-care (01) ==
LOC: HO.HWS 13:41
PROVIDERS: PCP Internal Medicine; Visit Provider Obstetrics & Gynecology
DX: Z01.419 Encounter for gynecological examination (general) (routine) without abnormal findings (principal)
CPT/HCPCS: 99396

== ENCOUNTER 2023-10-06 10:08 | Outpatient (REF) | payer OTHER, SELFPAY ==
[2023-10-06 11:57] LABS: Appearance Urine Clear; Color Urine Dark Yellow; Glucose Urine UA 250 mg/dL (Negative); Leukocyte Esterase Urine Trace (Negative); Nitrite Urine Positive (Negative); PH 5.5 (5.0-9.0); Specific Gravity - Urine 1.015 (1.005-1.025); UMIC TRIGGER UA YES; Urine Blood Negative (Negative); Urine Ketones Negative (Negative); Urine Protein Negative (Neg-Trace)
[2023-10-06 12:04] LABS: Bacteria Urine 4+ (None Seen); Hyaline Casts Urine 0-2 /LPF (0-2); RBC Urine 0-2 /HPF (0-2); Squamous Epithelial Cell Urine 0-2 /HPF (0-2)
== END 2023-10-06 10:09 | disposition home or self-care (01) ==
LOC: HO.HMGCLDS 10:08
PROVIDERS: Visit Provider Urology
DX: N39.41 Urge incontinence (principal); N32.81 Overactive bladder; N39.0 Urinary tract infection, site not specified
CPT/HCPCS: 81001; 87086; 87088; 87186

== ENCOUNTER 2023-10-09 14:30 | Outpatient (AMB) | payer OTHER, SELFPAY ==
--- NOTE | 2023-10-09 15:12 | A.OFFVIS_ITS ---
Intake Intake Visit Reasons: culture results Intake Note: Patient is present for Recurrent UTI's: Urology Med: Estradiol, Oxybutynin & Botox Antibiotic Allergy: None Blood Thinner: None Post Void Residual: 0 mL Job Honer Required: No Accompanied by: Self / Same As Patient Allergies latex [LATEX] Allergy (Intermediate, Verified 11/05/23 15:32) RASH dust Allergy (Unknown, Uncoded 10/09/23 15:13) Unknown pollen Allergy (Unknown, Uncoded 10/09/23 15:13) Unknown HPI HPI Comments History of Present Illness Details 10/09/23--Maranda is a 63-year-old female w ho presents today to the office for a follow-up. She is followed today for OAB and recurrent UTI's. The patient previously had botox 100 units in April with minimal improvement in urgency, she was still using Myrbetriq 50 mg daily. She had repeat botox 200 units Jen, 2023. She has had irritative bladder symptoms and recurrent UTI's. I have discussed referral to ID. Review of chart: Renal ultrasound results from 03/30/2023 revealed no calculi or focal parenchymal lesions. No hydronephrosis. 04/23/2023: Botox injection 100 units i n the office. 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 Gender identity: Female Female Reproductive History Menstrual Age of Menarche: 10 Review of Systems Const All systems reviewed & are unremarkable except as noted in HPI and below Reports no additional complaints Eyes Reports no additional complaints ENT Reports no additional complaints Card Denies dyspnea Resp Denies cough and Denies dyspnea GI Reports no additional complaints Reports no additional complaints Musc Reports no additional complaints Skin/Breast Denies rash and Denies unusual bruising Neuro Reports no additional complaints Psych Reports no additional complaints Endo Reports no additional complaints Jose/Lymph Reports no additional complaints Aller/Immun Reports no additional complaints Office Procedures Post Void Residual Post Residual Void Post Void Residual (PVR): 0 [id number] Void Residual by ultrasound Results Reviewed Results Reviewed: Date of Service: 03/30/23 EXAMINATION: US RETROPERITONEAL LIMITED (RENAL ONLY) CLINICAL INFORMATION: Urinary tract infection.. COMPARISON: None available. TECHNIQUE: Bilateral renal ultrasound performed. FINDINGS: RIGHT KIDNEY: 13.3 x 4.8 x 6.2 cm (SAG x AP x TRV). The kidney is normal in size, contour, and echogenicity. Renal cortical thickness is normal. No calculi or focal parenchymal lesions. No hydronephrosis. LEFT KIDNEY: 12.8 x 6.4 x 5.7 cm (SAG x AP x TRV). The kidney is normal in size, contour, and echogenicity. Renal cortical thickness is normal. No calculi or focal parenchymal lesions. No hydronephrosis. IMPRESSION: No significant abnormality identified.. Assessment & Plan Assessment & Plan (1) Recurrent UTI: Code(s): N39.0 - Urinary tract infection, site not specified Plan Referral to ID, Myrbetriq 25 mg daily Orders: Orders AMB Post Void Residual by ultrasound 10/09/23 N39.8 - Other specified disorders of urinary system Referrals Infectious Disease Referral N39.0 - Urinary tract infection, site not specified Medications: New mirabegron ER (Myrbetriq) 25 mg PO DAILY 30 tabs 1RF Coding Level of Care Code Est Pt Level 4 (88885) Diagnoses Recurrent UTI N39.0 CPT Codes Post Residual Void - PVR CPT Code: 56039-Zqep Void Residual by ultrasound ([id number])
== END 2023-10-09 17:02 | disposition home or self-care (01) ==
PROVIDERS: PCP Internal Medicine; Visit Provider Urology
DX: N39.0 Urinary tract infection, site not specified (principal)
CPT/HCPCS: 99214

== ENCOUNTER → 2023-10-09 14:30 | Outpatient (BNVA) | payer OTHER, SELFPAY | PROVIDERS: PCP Internal Medicine; Visit Provider Urology | DX: N39.0 Urinary tract infection, site not specified (principal) | CPT/HCPCS: 51798 ==

== ENCOUNTER 2023-11-05 14:44 | Outpatient (AMB) | payer OTHER, SELFPAY ==
--- NOTE | 2023-11-05 15:19 | A.OFFVIS_ITS ---
Intake Vital Signs 11/05/23 15:27 Height 5 ft 7 in Weight 291 lb BMI 45.6 Pulse 99 Pulse Source Pulse Oximeter Temp 98.6 F Temp Source Oral Pulse Oximetry (%) 96 Intake Visit Reasons: Reff urology UTI Allergies latex [LATEX] Allergy (Intermediate, Verified 11/05/23 15:32) RASH dust Allergy (Unknown, Uncoded 10/09/23 15:13) Unknown pollen Allergy (Unknown, Uncoded 10/09/23 15:13) Unknown HPI Reff urology UTI HPI Details She is here for evaluation persistent Ecoli in urine. She reports one UTI in her 50s when she had suprapubic discomfort and frequent urination. She reports no other UTIs. She says she sees Urology for overactive bladder. She stands up and urinates on self. She has no flank pain or hematuria. She has E coli with some resistance to Bactrim. 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 Gender identity: Female Female Reproductive History Menstrual Age of Menarche: 10 Review of Systems Const All systems reviewed & are unremarkable except as noted in HPI and below Physical Exam Vital Signs: Last Vital Signs Temp 98.6 F 11/05/23 15:27 Pulse 99 11/05/23 15:27 Pulse Ox 96 11/05/23 15:27 BMI result Body Mass Index 45.6 Const General: cooperative HEENT Head: Yes normal to inspection Face and sinus: Yes normal facial exam Mouth: Normal oral and palatal mucosa present Teeth and gingiva: dentition normal Eyes General: appearance normal, both eyes and all related structures Pupils: Equal, round and reactive pupils present Resp Effort & Inspection: normal respiratory effort Cardio Rate: regular rate Rhythm: regular rhythm GI Palpation (GI): Soft to palpation and nontender General: Yes no CVA tenderness Back/Spine/Pelvis Back: no CVA tenderness Skin General skin exam: no rashes or lesions noted Neuro General: moves all extremities Cranial nerves: Yes Equal, round and reactive pupils present Extrem General: Yes normal to inspection Psych Appearance: grossly normal Assessment & Plan Assessment & Plan (1) Urge incontinence: Comment: I think she has urinary tract colonization with E coli and no specific UTI symptoms so dont think these occurences are urinary tract infection. She has Bactrim resistance. Would stop Bactrim for prophylaxis. Stop culturing urine and no antibiotics unless hematuria,fever, pain pelvic area. Continue with acidification measures such as methenamine. Treatment for arthritic back discomfort since no signs of osteomyelitis and doubt urine related. Code(s): N39.41 - Urge incontinence Plan: na (2) Atrophic vaginitis: Comment: na Code(s): N95.2 - Postmenopausal atrophic vaginitis Plan: na (3) Kidney stone on left side: Code(s): N20.0 - Calculus of kidney Plan: na (4) OAB (overactive bladder): Code(s): N32.81 - Overactive bladder Plan: na Coding Level of Care Code New Pt Level 4 (99157) Diagnoses Urge incontinence N39.41 Atrophic vaginitis N95.2 Kidney stone on left side N20.0 OAB (overactive bladder) N32.81
[2023-11-05 15:27] VITALS: PULSE 99; TEMP 37; O2SAT 96; BMI 45.6
== END 2023-11-05 16:13 | disposition home or self-care (01) ==
PROVIDERS: PCP Internal Medicine; Visit Provider Internal Medicine
DX: N39.41 Urge incontinence (principal); N95.2 Postmenopausal atrophic vaginitis; N20.0 Calculus of kidney; N32.81 Overactive bladder
CPT/HCPCS: 99204

== ENCOUNTER → 2023-11-05 14:44 | Outpatient (BNVA) | payer OTHER, SELFPAY | PROVIDERS: PCP Internal Medicine; Visit Provider Internal Medicine ==

== ENCOUNTER 2023-11-22 10:03 | Outpatient (AMB) | payer OTHER, SELFPAY ==
--- NOTE | 2023-11-22 10:09 | MHC.OFFVIS ---
Intake Intake Visit Reasons: S/P OR botox Intake Note: Patient is present for S/P OR Botox Discussion: Urology Med: Estradiol, Oxybutynin & Botox Antibiotic Allergy: None Blood Thinner: None PVR 0 mL Web Application Tester Required: No Accompanied by: Self / Same As Patient Allergies latex [LATEX] Allergy (Intermediate, Verified 11/05/23 15:32) RASH dust Allergy (Unknown, Uncoded 10/09/23 15:13) Unknown pollen Allergy (Unknown, Uncoded 10/09/23 15:13) Unknown Medication List - Last Reconciled 11/22/23 by Noel Orlando MD ascorbic acid (vitamin C) (Vitamin C) 500 mg PO DAILY atorvastatin 20 mg PO DAILY [id number]-usgy-mlb-uyox-cky 600 mg calcium- 800 unit-50 mg (Caltrate 600-D Plus Minerals) 1 tab PO DAILY fexofenadine (Rachael Allergy) 60 mg PO BID flash glucose sensor (FreeStyle Lynsey 14 Day Sensor kit) As directed fluticasone propionate 50 mcg/actuation 1 spray intranasal BID spceogue-aujfq-ynp 149-hyal ac 750 mg-100 mg- 125 mg-1.65 mg (Glucosamine Chondroit Complx Advan) tabs PO insulin glargine (Lantus Solostar U-100 Insulin) 45 units (0.45 mL) subcut DAILY 30 days lorazepam 0.5 mg PO QID PRN metformin 1,000 mg PO BID methenamine hippurate 1 g PO DAILY 90 days mirabegron ER (Myrbetriq) 25 mg PO DAILY omega 4-jex-dkt-fish oil 300-1,000 mg (Fish Oil) 1 cap PO DAILY pen needle, diabetic (BD Anaya 2nd Gen Pen Needle) 5 times a day phenazopyridine (Pyridium) 200 mg PO BID semaglutide (Ozempic) 1 mg subcut QWEEK sertraline 100 mg PO DAILY HPI HPI Comments History of Present Illness Details 11/22/2023--Maranda is here for follow-up. Comorbidity diabetes, obesity. She was seen by infectious disease due to persistent bacteriuria. In review of the infectious disease note, recommendations include that the patient is resistant to Bactrim and to discontinue Bactrim prophylaxis. She discussed with the patient that she has colonization and does not recommend treatment for nitrite positive urine unless symptoms such as fever, gross hematuria. The patient states that her urinary symptoms have improved but she still has had occasional urine leakage accidents. She states her insurance recently approved the Myrbetriq 25 mg. She states she has been trying some pelvic floor exercises that she found on YouTube. Urinalysis nitrite positive Plan discussed continue Botox injection 200 units, repeat in February, Myrbetriq 25 mg to take 1 in the afternoon, continue Hiprex 1 g daily, continue Estrace cream. Review of chart: 10/09/23--Maranda is a 63-year-old female who presents today to the office for a follow-up. She is followed today for OAB and recurrent UTI's. The patient previously had botox 100 units in April with minimal improvement in urgency, she was still using Myrbetriq 50 mg daily. She had repeat botox 200 units Jen, 2023. She has had irritative bladder symptoms and recurrent UTI's. I have discussed referral to ID. Renal ultrasound results from 03/30/2023 revealed no calculi or focal parenchymal lesions. No hydronephrosis. 04/23/2023: Botox injection 100 units in the office. 11/22/23-- Plan discussed continue Botox injection 200 units, repeat in February, Myrbetriq 25 mg to take 1 in the afternoon, continue Hiprex 1 g daily, continue Estrace cream. 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 Gender identity: Female Female Reproductive History Menstrual Age of Menarche: 10 Review of Systems Const All systems reviewed & are unremarkable except as noted in HPI and below Reports no additional complaints Eyes Reports no additional complaints ENT Reports no additional complaints Card Reports no additional complaints Resp Reports no additional complaints GI Reports no additional complaints Reports as per HPI Musc Reports no additional complaints Skin/Breast Reports system reviewed and no additional complaints, except as documented Neuro Reports no additional complaints Psych Reports no additional complaints Endo Reports no additional complaints Jose/Lymph Reports no additional complaints Aller/Immun Reports no additional complaints Office Procedures Post Void Residual Post Residual Void Post Void Residual (PVR): 0 96210-Ifeq Void Residual by ultrasound Results AMB Urinalysis, Automated UA Leukoctes 0 Arnaldo/uL Last Edit by Naomie Lopez [facility] on 11/22/23 10:38 UA Nitrite Positive Last Edit by Naomie Lopez [facility] on 11/22/23 10:38 UA Urobilinogen 0.2 mg/dL Last Edit by Naomie Lopez [facility] on 11/22/23 10:38 UA Protein 15 mg/dL Last Edit by Naomie Lopez [facility] on 11/22/23 10:38 UA pH 6.0 Last Edit by Naomie Lopez [facility] on 11/22/23 10:38 UA Blood 0 Ramos/uL Last Edit by Naomie Lopez [facility] on 11/22/23 10:38 UA Specific Channing 1.020 Last Edit by Naomie Lopez [facility] on 11/22/23 10:38 UA Ketone Negative Last Edit by Naomie Lopez [facility] on 11/22/23 10:38 UA Bilirubin 0 mg/dL Last Edit by Naomie Lopez [facility] on 11/22/23 10:38 UA Glucose 0 mg/dL Last Edit by Naomie Lopez [facility] on 11/22/23 10:38 Results Reviewed Results Reviewed: Laboratory Last Values Urine pH (Auto) 6.0 11/22/23 10:09 Specific Channing (Auto) 1.020 11/22/23 10:09 Urine Protein (Auto) 15 mg/dL 11/22/23 10:09 Glucose (UA)(Auto) 0 mg/dL 11/22/23 10:09 Urine Ketones (Auto) Negative 11/22/23 10:09 Urine Blood (Auto) 0 Ramos/uL 11/22/23 10:09 Urine Nitrite (Auto) Positive 11/22/23 10:09 Urine Bilirubin (Auto) 0 mg/dL 11/22/23 10:09 Urine Urobilinogen (Auto) 0.2 mg/dL 11/22/23 10:09 Leukocyte Esterase (Auto) 0 Arnaldo/uL 11/22/23 10:09 Date of Service: 03/30/23 EXAMINATION: US RETROPERITONEAL LIMITED (RENAL ONLY) CLINICAL INFORMATION: Urinary tract infection.. COMPARISON: None available. TECHNIQUE: Bilateral renal ultrasound performed. FINDINGS: RIGHT KIDNEY: 13.3 x 4.8 x 6.2 cm (SAG x AP x TRV). The kidney is normal in size, contour, and echogenicity. Renal cortical thickness is normal. No calculi or focal parenchymal lesions. No hydronephrosis. LEFT KIDNEY: 12.8 x 6.4 x 5.7 cm (SAG x AP x TRV). The kidney is normal in size, contour, and echogenicity. Renal cortical thickness is normal. No calculi or focal parenchymal lesions. No hydronephrosis. IMPRESSION: No significant abnormality identified.. Assessment & Plan Assessment & Plan (1) Recurrent UTI: Code(s): N39.0 - Urinary tract infection, site not specified (2) Spastic neurogenic bladder: Code(s): N31.8 - Other neuromuscular dysfunction of bladder (3) Atrophic vaginitis: Code(s): N95.2 - Postmenopausal atrophic vaginitis Plan Plan discussed continue Botox injection 200 units, repeat in February, Myrbetriq 25 mg to take 1 in the afternoon, continue Hiprex 1 g daily, continue Estrace cream. Orders: Orders AMB Urinalysis Automated Today Z13.9 - Encounter for screening, unspecified AMB Post Void Residual by ultrasound Today N39.8 - Other specified disorders of urinary system Medications: Refilled mirabegron ER (Myrbetriq) 25 mg PO DAILY 90 tabs 2RF Patient Instructions: The patient had an opportunity to ask questions regarding treatment plan. All questions were answered. Imaging, Laboratory studies and physical exam results were discussed and reviewed in detail. No major barriers to understanding were identified. The patient expressed understanding and agreement with the above treatment plan. The patient is aware they should contact our office by phone for worsening of their current condition or the appearance of new symptoms. Compliance is encouraged with any medications and followup testing that is ordered. It is a privilege to be allowed the opportunity to participate in the urologic care of your patient. If you have any questions or concerns regarding treatment for the above conditions please do not hesitate to contact me. The office telephone contact is [phone]. This note is constructed in part using voice recognition software. While every effort has been made to ensure accuracy account strategist errors may have been included. Yours sincerely, Noel Orlando MD Coding Level of Care Code Est Pt Level 4 (33356) Diagnoses Recurrent UTI N39.0 Spastic neurogenic bladder N31.8 Atrophic vaginitis N95.2 CPT Codes Post Residual Void - PVR CPT Code: 03396-Ucyv Void Residual by ultrasound ([id number])
== END 2023-11-22 11:07 | disposition home or self-care (01) ==
PROVIDERS: PCP Internal Medicine; Visit Provider Urology
DX: N39.0 Urinary tract infection, site not specified (principal); N31.8 Other neuromuscular dysfunction of bladder; N95.2 Postmenopausal atrophic vaginitis; Z13.9 Encounter for screening, unspecified
CPT/HCPCS: 99214

== ENCOUNTER → 2023-11-22 10:03 | Outpatient (BNVA) | payer OTHER, SELFPAY | PROVIDERS: PCP Internal Medicine; Visit Provider Urology | DX: N31.8 Other neuromuscular dysfunction of bladder (principal); N39.0 Urinary tract infection, site not specified; N95.2 Postmenopausal atrophic vaginitis; N39.8 Other specified disorders of urinary system | CPT/HCPCS: 51798; 81003 ==

== ENCOUNTER 2024-02-18 11:38 | Outpatient (REF) | payer OTHER, SELFPAY ==
[2024-02-18 13:20] LABS: Appearance Urine Hazy; Color Urine Yellow; Glucose Urine UA Negative (Negative); Leukocyte Esterase Urine Small (1+) (Negative); Nitrite Urine Positive (Negative); Specific Gravity - Urine 1.015 (1.005-1.025); UMIC TRIGGER UA YES; Urine Blood Negative (Negative); Urine Ketones Negative (Negative); Urine Protein Negative (Neg-Trace)
[2024-02-18 13:56] LABS: Bacteria Urine 4+ (None Seen); Hyaline Casts Urine 0-2 /LPF (0-2); RBC Urine 0-2 /HPF (0-2)
== END 2024-02-18 11:39 | disposition home or self-care (01) ==
LOC: HO.HMGCLDS 11:38
PROVIDERS: PCP Internal Medicine; Visit Provider Urology
DX: N39.0 Urinary tract infection, site not specified (principal); B96.20 Unspecified Escherichia coli [E. coli] as the cause of diseases classified elsewhere
CPT/HCPCS: 81001; 87086; 87088; 87186

== ENCOUNTER 2024-02-20 15:25 | Outpatient (AMB) | payer OTHER, SELFPAY ==
--- NOTE | 2024-02-20 15:45 | A.OFFVIS_ITS ---
Intake Visit Reasons: Recurrent UTI- follow up Intake Note: Patient is present for follow up recurrent uti Urology Med: mybetriq (pt stopped myrbetriq x1 week, she stated that it was not helping) Antibiotic Allergy: None Blood Thinner: None PVR 0ml's Postal Sorting Officer Required: No Accompanied by: Self / Same As Patient Allergies latex [LATEX] Allergy (Intermediate, Verified 03/11/24 08:42) RASH dust Allergy (Intermediate, Uncoded 03/11/24 08:42) Sneezing pollen Allergy (Intermediate, Uncoded 03/11/24 08:42) Sneezing HPI Comments Details: 02/20/24--Pt is followed for neurogenic bladder, LUTS urgency, urge incontinence. The patient was evaluated by Infectious disease and has bacteuria colonization. Has failed multiple PO anticholinergics and has had improvement with Botox 200 units. needs botox q 3 month ceftin and fosfosmin sent. Review of chart: 11/22/2023--Maranda is here for follow-up. Comorbidity diabetes, obesity. She was seen by infectious disease due to persistent bacteriuria. In review of the infectious disease note, recommendations include that the patient is resistant to Bactrim and to discontinue Bactrim prophylaxis. She discussed with the patient that she has colonization and does not recommend treatment for nitrite positive urine unless symptoms such as fever, gross hematuria. The patient states that her urinary symptoms have improved but she still has had occasional urine leakage accidents. She states her insurance recently approved the Myrbetriq 25 mg. She states she has been trying some pelvic floor exercises that she found on YouTube. Plan discussed continue Botox injection 200 units, repeat in February, Myrbetriq 25 mg to take 1 in the afternoon, continue Hiprex 1 g daily, continue Estrace cream. 10/09/23--Maranda is a 63-year-old female who presents today to the office for a follow-up. She is followed today for OAB and recurrent UTI's. The patient previously had botox 100 units in April with minimal improvement in urgency, she was still using Myrbetriq 50 mg daily. She had repeat botox 200 units Jen2023. She has had irritative bladder symptoms and recurrent UTI's. I have discussed referral to ID. Renal ultrasound results from 03/30/2023 revealed no calculi or focal parenchymal lesions. No hydronephrosis. 04/23/2023: Botox injection 100 units in the office. [facility] Medical History Elevated cholesterol Morbid obesity Breast calcification, left Arthritis Anxiety Tendonitis Diabetes type 2, uncontrolled Surgical History History of cystoscopy Hx of left breast biopsy Hx of right breast biopsy Hx of colonoscopy Hx of section H/O cervical polypectomy Family History Mother Kidney carcinoma Social History Household Members Other:: son Housing: House Alcohol intake: never Patient Tobacco Use Status: Former Tobacco user Tobacco use type: Cigarette Years Smoked: 30 Smoked in Last 30 Days: No Use of substances other than those prescribed or required for medical reasons: Yes Substance Use Type Other:: Gummies THC Substance Use Frequency: Occasionally Are you DNR?: No Advance Directives: No Advance Directives Information Provided: Yes 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: 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 Gender identity: Female Female Reproductive History Menstrual Age of Menarche: 10 Review of Systems Const All systems reviewed & are unremarkable except as noted in HPI and below Reports no additional complaints Eyes Reports no additional complaints ENT Reports no additional complaints Card Reports no additional complaints Resp Reports no additional complaints GI Reports no additional complaints Reports as per HPI Musc Reports no additional complaints Skin/Breast Reports system reviewed and no additional complaints, except as documented Neuro Reports no additional complaints Psych Reports no additional complaints Endo Reports no additional complaints Jose/Lymph Reports no additional complaints Aller/Immun Reports no additional complaints Office Procedures Post Void Residual Post Residual Void Post Void Residual (PVR): 0 21371-Vxgt Void Residual by ultrasound Assessment & Plan Assessment & Plan (1) Recurrent UTI: Code(s): N39.0 - Urinary tract infection, site not specified Category: Medical (2) Spastic neurogenic bladder: Code(s): N31.8 - Other neuromuscular dysfunction of bladder Category: Medical (3) Atrophic vaginitis: Code(s): N95.2 - Postmenopausal atrophic vaginitis Category: Medical Plan Plan discussed continue Botox injection 200 units, repeat in February, Myrbetriq 25 mg to take 1 in the afternoon, continue Hiprex 1 g daily, continue Estrace cream. Orders: Orders AMB Post Void Residual by ultrasound 02/20/24 N39.0 - Urinary tract infection, site not specified Medications: New cefuroxime axetil 500 mg PO BID 28 tabs 0RF 14 days fosfomycin tromethamine 3 grams PO Q3D 6 ea 0RF 6 doses NS Coding Level of Care Code Est Pt Level 3 (38580) Diagnoses Recurrent UTI N39.0 Spastic neurogenic bladder N31.8 Atrophic vaginitis N95.2 CPT Codes Post Residual Void - PVR CPT Code: 71353-Dilq Void Residual by ultrasound ([id number])
== END 2024-02-20 16:41 | disposition home or self-care (01) ==
PROVIDERS: PCP Internal Medicine; Visit Provider Urology
DX: N39.0 Urinary tract infection, site not specified (principal); N31.8 Other neuromuscular dysfunction of bladder; N95.2 Postmenopausal atrophic vaginitis
CPT/HCPCS: 99213

== ENCOUNTER → 2024-02-20 15:25 | Outpatient (BNVA) | payer OTHER, SELFPAY | PROVIDERS: PCP Internal Medicine; Visit Provider Urology | DX: N39.0 Urinary tract infection, site not specified (principal); N31.8 Other neuromuscular dysfunction of bladder; N95.2 Postmenopausal atrophic vaginitis | CPT/HCPCS: 51798 ==

== ENCOUNTER 2024-03-11 08:21 | Day surgery (SDC) | payer OTHER, SELFPAY ==
--- NOTE | 2024-03-07 14:33 | HO.ANESPROP2 ---
Documented by User: Regina Gomez NP 03/07/24 14:34 HPI - Anesthesia Eval Consult details Narrative: 64yo F for Cystoscopy Bladder Botox Injection Anesthesia Pre-Procedure Meds Is the patient on any of the following meds?: GLP1/DPP4 PMFSH Active Problems Active Problems: All Active Problems Spastic neurogenic bladder (Acute) Recurrent UTI (Acute) Flank pain (Acute) Atrophic vaginitis (Acute) Urge incontinence (Acute) Kidney stone on left side (Acute) OAB (overactive bladder) (Acute) Recurrent urinary tract infection (Acute) HPV in female (Acute) At high risk for breast cancer (Acute) UTI (urinary tract infection) (Acute) Skin candidiasis (Acute) Well woman exam (Acute) Urine incontinence (Acute) Abnormal mammogram (Acute) At high risk for breast cancer (Acute) Tricompartment osteoarthritis of knees, bilateral (Acute) Morbid obesity (Acute) Breast calcification, left (Acute) Diabetes type 2, uncontrolled (Acute) Past Medical History Medical History Elevated cholesterol Morbid obesity Breast calcification, left Arthritis Anxiety Tendonitis Diabetes type 2, uncontrolled Family History Family History Mother Kidney carcinoma Family history of problems with anesthesia: No Surgical History Surgical History History of cystoscopy Hx of left breast biopsy Hx of right breast biopsy Hx of colonoscopy Hx of section H/O cervical polypectomy History of Problems with Anesthesia: No Social History Social History Household Members Other:: son Housing: House Alcohol intake: never Patient Tobacco Use Status: Former Tobacco user Tobacco use type: Cigarette Years Smoked: 30 Smoked in Last 30 Days: No Use of substances other than those prescribed or required for medical reasons: Yes Substance Use Type Other:: Gummies THC Substance Use Frequency: Occasionally Are you DNR?: No Advance Directives: No Advance Directives Information Provided: Yes 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: 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 Gender identity: Female Meds Allergies Allergy/AdvReac Type Severity Reaction Status Date / Time latex [LATEX] Allergy Intermediate RASH Verified 03/11/24 08:42 dust Allergy Intermediate Sneezing Uncoded 03/11/24 08:42 pollen Allergy Intermediate Sneezing Uncoded 03/11/24 08:42 Home Medications ?Medication ?Instructions ?Recorded ?Confirmed ?Last Taken ?Type lorazepam 0.5 mg tablet 0.5 mg PO QID PRN Anxiety 04/28/21 03/11/24 Unknown History metformin 1,000 mg tablet 1,000 mg PO BID 04/28/21 03/11/24 03/10/24 History flash glucose sensor (FreeStyle #1 ea 06/23/21 11/22/23 Unknown History Lynsey 14 Day Sensor kit) fluticasone propionate 50 1 spray intranasal BID 06/23/21 03/11/24 Unknown History mcg/actuation nasal spray,suspension sertraline 100 mg tablet 100 mg PO DAILY 06/23/21 03/11/24 08/21/23 06:30 History calcium 600 mg-D3 800 unit-mag11 1 tab PO DAILY 11/05/23 03/11/24 Unknown History 50 iu-kwig-aeyytz-lance-s.borat tablet (Caltrate 600-D Plus Minerals) fexofenadine 60 mg tablet (Rachael 60 mg PO BID 11/05/23 03/11/24 Unknown History Allergy) mfkphubfnmj-jdrszgdbt-tkqf281-hyal 1 tab PO DAILY 11/05/23 03/11/24 Unknown History 750 mg-100 mg-125 mg-1.65 mg tablet (Glucosamine Chondroit Complx Advan) omega 8-bby-jit-fish oil 300 1 cap PO DAILY 11/05/23 03/11/24 03/09/24 History mg-1,000 mg capsule (Fish Oil) semaglutide 2 mg/dose (8 mg/3 mL) 2 mg subcut QWEEK 02/20/24 03/11/24 02/29/24 History subcutaneous pen injector (Ozempic) insulin glargine 100 unit/mL (3 65 unit subcut BID 03/11/24 03/11/24 03/10/24 20:00 History mL) subcutaneous pen (Lantus 65 units Solostar U-100 Insulin) Assessment and Plan Assessment Anesthesia Assessment: Chart Reviewed Final Anesthetic Review Family History of Problems with Anesthesia: No History of Problems with Anesthesia: No Documented by User: Jina Del Real MD 03/11/24 09:08 HPI - Anesthesia Eval Anesthesia Pre-Procedure Meds If yes to any meds - educate patient: Pt education - increased risk of aspiration and/or euvolemic DKA and Pt education - possibility of cancelled proc at provider's discretion PMFSH Past Medical History Medical History Elevated cholesterol Morbid obesity Breast calcification, left Arthritis Anxiety Tendonitis Diabetes type 2, uncontrolled Family History Family History Mother Kidney carcinoma Surgical History Surgical History History of cystoscopy Hx of left breast biopsy Hx of right breast biopsy Hx of colonoscopy Hx of section H/O cervical polypectomy Social History Social History Household Members Other:: son Housing: House Alcohol intake: never Patient Tobacco Use Status: Former Tobacco user Tobacco use type: Cigarette Years Smoked: 30 Smoked in Last 30 Days: No Use of substances other than those prescribed or required for medical reasons: Yes Substance Use Type Other:: Gummies THC Substance Use Frequency: Occasionally Are you DNR?: No Advance Directives: No Advance Directives Information Provided: Yes 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: 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 Gender identity: Female Meds Allergies Allergy/AdvReac Type Severity Reaction Status Date / Time latex [LATEX] Allergy Intermediate RASH Verified 03/11/24 08:42 dust Allergy Intermediate Sneezing Uncoded 03/11/24 08:42 pollen Allergy Intermediate Sneezing Uncoded 03/11/24 08:42 Home Medications ?Medication ?Instructions ?Recorded ?Confirmed ?Last Taken ?Type lorazepam 0.5 mg tablet 0.5 mg PO QID PRN Anxiety 04/28/21 03/11/24 Unknown History metformin 1,000 mg tablet 1,000 mg PO BID 04/28/21 03/11/24 03/10/24 History flash glucose sensor (FreeStyle #1 ea 06/23/21 11/22/23 Unknown History Lynsey 14 Day Sensor kit) fluticasone propionate 50 1 spray intranasal BID 06/23/21 03/11/24 Unknown History mcg/actuation nasal spray,suspension sertraline 100 mg tablet 100 mg PO DAILY 06/23/21 03/11/24 08/21/23 06:30 History calcium 600 mg-D3 800 unit-mag11 1 tab PO DAILY 11/05/23 03/11/24 Unknown History 50 vv-cfwr-ysmqnn-lance-s.borat tablet (Caltrate 600-D Plus Minerals) fexofenadine 60 mg tablet (Rachael 60 mg PO BID 11/05/23 03/11/24 Unknown History Allergy) nibrlnsfsmd-ofhxazsap-hqvk989-hyal 1 tab PO DAILY 11/05/23 03/11/24 Unknown History 750 mg-100 mg-125 mg-1.65 mg tablet (Glucosamine Chondroit Complx Advan) omega 7-wlp-szs-fish oil 300 1 cap PO DAILY 11/05/23 03/11/24 03/09/24 History mg-1,000 mg capsule (Fish Oil) semaglutide 2 mg/dose (8 mg/3 mL) 2 mg subcut QWEEK 02/20/24 03/11/24 02/29/24 History subcutaneous pen injector (Ozempic) insulin glargine 100 unit/mL (3 65 unit subcut BID 03/11/24 03/11/24 03/10/24 20:00 History mL) subcutaneous pen (Lantus 65 units Solostar U-100 Insulin) Exam Airway Mallampati Class: II TM Dist: <=3cm Neck ROM: Limited Heart: rrr Lungs: cta Assessment and Plan Assessment Anesthesia Assessment: Anesthesia Plan Discussed Final Anesthetic Review NPO: Yes ASA Class: III Final Preanesthetic Review: No Changes in Pt Med Stat, Meds/Allgs Chart Reviewed, Consent Obtained/Reviewed and Anes Risks/Benef Reviewed Patient Risk: Intermediate Procedure Risk: Low Anesthetic Plan Anesthetic Plan: GA and MAC: Disposition: Standard PACU
[2024-03-11] VITALS (7 sets, daily range): BP systolic 117–141; BP diastolic 59–87; PULSE 82–89; RESP 16–20; TEMP 36.1–36.7; O2SAT 93–98; BMI 45.3
[2024-03-11 08:53] LABS: Glucose, Whole Blood 123 mg/dL (60-115)
--- NOTE | 2024-03-11 09:08 | MHC.SHP ---
Pre-Procedural Eval Section A - 24 Hr Update-Section A only Date of Service: 03/11/24 The patient is an INPATIENT: No The patient has been examined within 24 hours of the surgical procedure. The History & Physical has been completed within 30 days and I have reviewed it.: Yes Section B - Complete if H&P > 30 days Chief Complaint: Other neuromuscular dysfunction of bladder Allergies: Allergies Allergy/AdvReac Type Severity Reaction Status Date / Time latex [LATEX] Allergy Intermediate RASH Verified 03/11/24 08:42 dust Allergy Intermediate Sneezing Uncoded 03/11/24 08:42 pollen Allergy Intermediate Sneezing Uncoded 03/11/24 08:42 Plan Diagnosis/Plan: Unchanged I have reviewed the history and physical and performed a pertinent physical examination on my patient. No changes have occurred unless specified. Cystoscopy bladder botox injection. Time Spent With Patient Time: Total time managing care of this patient today ____ minutes.
[2024-03-11] MEDS: Lactated Ringers 1,000 ML 100 ML IVCONT (09:10)
--- NOTE | 2024-03-11 09:45 | W.PM.OPN ---
Operative Note Operative Note Date of Service: 03/11/24 Narrative: PreOperative Diagnosis: Spastic neurogenic bladder Post Operative Diagnosis: Spastic neurogenic bladder Procedure: Cystoscopy with injection 200 units Botox intra detrusor muscle Surgeon: Dr Noel Orlando Anesthesia: General Procedure: After informed consent was verified the patient was brought to the operating room and placed in a supine position. Anesthesia was administered per protocol. Time out was done per protocol. Antibiotics confirmed. Rocephin 2 gm IV Cystoscopy performed with 22 Nepali cystoscope. Bladder was emptied of urine. Bladder was refilled. The bladder was visualized, the right and left ureteral orifices were visualized. Mild to Moderate trabeculations noted. Using 200 units of Botox mixed in 10 cc of normal saline; transurethral injections were placed into the posterior wall of the bladder. 0.5cc placed at each injection site. Injections were placed in a grid 5 across and 4 longitudinally. Injections were placed from the inferior to superior position. The bladder was drained, the cystoscope was removed. 2% lidocaine was passed transurethrally. The patient tolerated the procedure and was brought out of anesthesia and taken to the recovery room in stable condition. Complications: None Drains: None
== END 2024-03-11 11:45 | disposition home or self-care (01) ==
PROVIDERS: PCP Internal Medicine; Visit Provider Urology
PROC: 3E0K8GC Introduction of Other Therapeutic Substance into Genitourinary Tract, Via Natural or Artificial Opening Endoscopic (ICD-10-PCS; CPT 52287; principal; 2024-03-11 10:20)
DX: N31.8 Other neuromuscular dysfunction of bladder (principal); N39.0 Urinary tract infection, site not specified; N95.2 Postmenopausal atrophic vaginitis; E11.9 Type 2 diabetes mellitus without complications; E66.01 Morbid (severe) obesity due to excess calories; Z91.040 Latex allergy status; E78.00 Pure hypercholesterolemia, unspecified; Z79.4 Long term (current) use of insulin; Z79.84 Long term (current) use of oral hypoglycemic drugs; Z79.85 Long-term (current) use of injectable non-insulin antidiabetic drugs; Z79.899 Other long term (current) drug therapy; Z79.51 Long term (current) use of inhaled steroids; Z98.890 Other specified postprocedural states; Z87.891 Personal history of nicotine dependence
CPT/HCPCS: 52287; 82947; J0585; J0696; J1100; J2250; J2405; J2704; J3010

== ENCOUNTER → 2024-03-11 08:21 | Outpatient (BNV) | payer OTHER, SELFPAY | PROVIDERS: PCP Internal Medicine; Visit Provider Urology | DX: N31.8 Other neuromuscular dysfunction of bladder (principal) | CPT/HCPCS: 52287 ==

== ENCOUNTER → 2024-03-17 13:28 | Outpatient (BNVA) | payer OTHER, SELFPAY | PROVIDERS: PCP Internal Medicine; Visit Provider Urology | DX: N31.8 Other neuromuscular dysfunction of bladder (principal); N32.81 Overactive bladder; N39.0 Urinary tract infection, site not specified; N39.41 Urge incontinence | CPT/HCPCS: 51798 ==

== ENCOUNTER 2024-04-25 14:59 | Outpatient (REF) | payer OTHER, SELFPAY ==
[2024-04-25 16:18] LABS: Appearance Urine Cloudy; Color Urine Yellow; Glucose Urine UA Negative (Negative); Leukocyte Esterase Urine Large (3+) (Negative); Nitrite Urine Positive (Negative); PH 5.5 (5.0-9.0); UMIC TRIGGER UA YES; Urine Blood Trace (Negative); Urine Ketones Negative (Negative); Urine Protein Negative (Neg-Trace)
[2024-04-25 16:25] LABS: Bacteria Urine 4+ (None Seen); Hyaline Casts Urine 0-2 /LPF (0-2); RBC Urine 0-2 /HPF (0-2); WBC Urine >50 /HPF (0-5)
== END 2024-04-25 15:00 | disposition home or self-care (01) ==
LOC: HO.HMGCLDS 14:59
PROVIDERS: PCP Internal Medicine; Visit Provider Urology
DX: N31.8 Other neuromuscular dysfunction of bladder (principal); N39.0 Urinary tract infection, site not specified; R10.9 Unspecified abdominal pain; N39.41 Urge incontinence; N32.81 Overactive bladder
CPT/HCPCS: 81001; 87086; 87088; 87186

== ENCOUNTER 2024-07-16 06:45 | Outpatient (REF) | payer OTHER, SELFPAY ==
[2024-07-16 10:01] LABS: MANUAL DIFF FLAG NO
[2024-07-16 10:13] LABS: Basophils Percent Auto 0.4 % (0-2); Eosinophils Absolute Auto 0.2 X10*3/uL (0.0-0.4); Eosinophils Percent Auto 1.6 % (0-4); Hematocrit 42.7 % (37.0-47.0); Hemoglobin 14.1 g/dl (12.0-16.0); Imm Gran Abs Auto 0.07 X10*3/uL (0.00-0.03); Imm Gran Pct Auto 0.7 % (0.0-0.4); Lymphocytes Absolute Auto 2.4 X10*3/uL (1.2-4.9); Lymphocytes Percent Auto 22.4 % (20-40); Mean Corpuscular Hemoglobin 25.8 pg (27.0-33.0); Mean Corpuscular Volume 78.1 fL (80.0-98.0); Mean Platelet Volume 10.2 fL (9.4-12.3); Monocytes Absolute Auto 0.6 X10*3/uL (0.1-1.2); Monocytes Percent Auto 5.4 % (2-11); Neutrophils Absolute Auto 7.4 x10*3/uL (2.0-8.3); Neutrophils Percent Auto 69.5 % (45-73); Platelet Count 271 X10*3/uL (160-400); Red Blood Count 5.47 X10*6/uL (4.20-5.50); Red Cell Distribution Width 14.7 % (11.0-16.0); White Blood Count 10.6 X10*3/uL (4.8-10.8)
[2024-07-16 10:23] LABS: Estimated Average Glucose 220 mg/dL; Hemoglobin A1C 263.9298 umol/L; Hemoglobin A1c % 9.3 % (<6.0); Total Hemoglobin (HGBA1C) 3368.8899 umol/L
[2024-07-16 10:25] LABS: Alanine Aminotransferase 35 U/L (0-31); Alkaline Phosphatase 122 U/L (39-117); Anion Gap 12 (12-20); Aspartate Amino Transferase 25 U/L (5-31); Bilirubin Total 0.4 mg/dL (0.0-1.0); Blood Urea Nitrogen 10 mg/dL (9-16); Calcium 9.9 mg/dL (8.4-10.2); Carbon Dioxide 26 mmol/L (22-29); Chloride 103 mmol/L (96-108); Cholesterol 123 mg/dL (<200); Estimated Glomerular Filt Rate > 60; Glucose Fasting 303 mg/dL (60-99); HDL Cholesterol 29 mg/dL (>40); LDL Cholesterol Calculated 72 mg/dL (<100); Sodium 137 mmol/L (135-145); Total Protein 7.4 g/dL (6.5-8.0); Triglycerides 111 mg/dL (<150)
--- OUTSIDE RECORDS SUMMARY | 2024-07-16 22:42 | XMS_ITS | Continuity of Care Document ---
Author Organization [facility] Address [address] [place] [address]- Care Team Providers Care Expansion Joint Builder Name Role Phone Cem LOVE, Jerad Little Primary Care Physician [phone] [facility] [place] Date(s): 06/11/24 - 07/11/24 [facility] [address], [place] [address] Encounter Type: Triage Allergies, Adverse Reactions, Alerts No Known Allergies Immunizations Given and Recorded Vaccine Date Status Refusal Reason SARS-CoV-2 (COVID-19) mRNA BNT-162b2 vac 11/18/20 Given SARS-CoV-2 (COVID-19) mRNA BNT-162b2 vac 10/28/20 Given Medications Rachael By Mouth, 0 Refills, Maintenance, 11/13/23 3:15:00 PM EDT, Partial fill upon patient request if the prescription is for a schedule II opioid drug. Start Date: 11/13/23 Status: Ordered Repeat number: 1 atorvastatin 10 mg oral tablet 1 tablet = 10 mg, By Mouth, Daily, 0 Refills, Maintenance, 11/13/23 3:15:00 PM EDT, Partial fill uponpatient request if the prescription is for a schedule II opioid drug. Start Date: 11/13/23 Status: Ordered Repeat number: 1 Caltrate 600 + D By Mouth, 2 times a day, 0 Refills, Maintenance, 11/13/23 3:15:00 PM EDT, Partial fill upon patient request if the prescription is for a schedule II opioid drug. Start Date: 11/13/23 Status: Ordered Repeat number: 1 Flonase = 50 mcg, Daily, 0 Refills, Maintenance, 11/13/23 3:15:00 PM EDT, Partial fill upon patient request if the prescription is for a schedule II opioid drug. Start Date: 11/13/23 Status: Ordered Repeat number: 1 FREESTYLE LYNSEY 3 SENSOR FREESTYLE LYNSEY 3 SENSOR, See Instructions, # 2 each, 0 Refills, Maintenance, CHANGE EVERY 14 DAYS,04/01/24 3:45:00 PM EDT, 170.1, cm, 11/13/23 15:03:00 EDT, Height Start Date: 04/01/24 Status: Ordered Quantity: 2.0 Unit: each Repeat number: 1 Freestyle Lynsey 3 Sensors Freestyle Lynsey 3 Sensors, See Instructions, # 2 each, Refills 6, Tot. Refills 6, Maintenance, change every 14 days. E11.9, 04/21/24 3:47:00 PM EDT, Supply, 170.1, cm, 11/13/23 15:03:00 EDT, Height Start Date: 04/21/24 Status: Ordered Quantity: 2.0 Unit: each Repeat number: 7 Freestyle Lynsey Monitor See Instructions, # 1 each, Refills 0, Tot. Refills 0, Maintenance, use as directed for Type 2 Diabetes Mellitus Use with Freestyle lynsey 3 sensors, 04/29/24 2:08:00 PM EDT, Freestyle lynsey 3 reader, Supply, 170.1, cm, 11/13/23 15:03:00 EDT, Height Start Date: 04/29/24 Stop Date: 05/29/24 Status: Ordered Quantity: 1.0 Unit: each Repeat number: 1 Glucosamine Chondroitin MSM Complex 0 Refills, Maintenance, 11/13/23 3:14:00 PM EDT, Partial fill upon patient request if the prescription is for a schedule II opioid drug. Start Date: 11/13/23 Status: Ordered Repeat number: 1 Humalog Kwik Pen 100 units/mL subcutaneous injection See Instructions, Take based on sliding scale between 3-15 units via Subcutaneous Infusion, 3 timesdaily before meals. E11.9. Max daily dose 45 units., # 30 mL, 3 Refills, Maintenance, 04/06/23 4:51:00 PM EDT, [facility] #[id number], Partial fill upon patient request if the prescription is for a schedule II opioid drug., 170.1, cm, 04/06/23 14:45:00 EDT, Height Start Date: 04/06/23 Status: Ordered Quantity: 30.0 Unit: mL Repeat number: 4 Lantus Solostar Pen 100 units/mL subcutaneous solution See Instructions, Take 65 units, twice daily via Subcutaneous Injection. E11.9, # 45 mL, 6 Refills,Maintenance, 11/13/23 3:34:00 PM EDT, Solution, [email or web address] #[id number], Partial fill upon patient request if the prescription is for a schedule II opioid drug., 170.1, cm, 11/13/23 15:03:00 EDT, Height Start Date: 11/13/23 Status: Ordered Quantity: 45.0 Unit: mL Repeat number: 7 Lorazepam 0 Refills, Maintenance, 11/13/23 3:16:00 PM EDT, Partial fill upon patient request if the prescription is for a schedule II opioid drug. Start Date: 11/13/23 Status: Ordered Repeat number: 1 metFORMIN 1000 mg oral tablet See Instructions, 1 tablet By Mouth 2 times a day. E11.9, # 60 tablet, 6 Refills, Maintenance, 11/13/23 3:35:00 PM EDT, Tablet, [facility] #[id number], Partial fill upon patient request if the prescription is for a schedule II opioid drug., 170.1, cm, 11/13/23 15:03:00 EDT, Height Start Date: 11/13/23 Status: Ordered Quantity: 60.0 Unit: tablet Repeat number: 7 methenamine hippurate Start Date: 11/13/23 Status: Ordered Repeat number: 1 [place]-3 Fish Oil By Mouth, 3 times a day, 0 Refills, Maintenance, 11/13/23 3:14:00 PM EDT, Partial fill upon patient request if the prescription is for a schedule II opioid drug. Start Date: 11/13/23 Status: Ordered Repeat number: 1 Ozempic 8 mg/3 mL (2 mg dose) subcutaneous solution See Instructions, INJECT 2 MG UNDER THE SKIN EVERY WEEK, # 3 mL, 5 Refills, Maintenance, 06/11/24 2:05:00 PM EST, [email or web address] #[id number], 170.1, cm, 11/13/23 15:03:00 EDT, Height Start Date: 06/11/24 Status: Ordered Quantity: 3.0 Unit: mL Repeat number: 6 sertraline 100 mg oral tablet 1 tablet = 100 mg, By Mouth, Daily, 0 Refills, Maintenance, 11/13/23 3:14:00 PM EDT, Partial fill upon patient request if the prescription is for a schedule II opioid drug. Start Date: 11/13/23 Status: Ordered Repeat number: 1 Vitamin C 500 mg oral tablet 1 tablet = 500 mg, By Mouth, Daily, 0 Refills, Maintenance, 11/13/23 3:15:00 PM EDT, Partial fill upon patient request if the prescription is for a schedule II opioid drug. Start Date: 11/13/23 Status: Ordered Repeat number: 1 Problem List Condition Confirmation Course Effective Dates Status Health St atus Informant Severe obesity Confirmed Active Social History Social History Type Response Smoking Status Former smoker, quit more than 30 days ago; Other: Quit 7 years ago as of 04/28; entered on: 04/06/23 Sex Sex Representation Female (finding) Patient Care team information Care Team Personnel Name: Cem LOVE, Jerad Little Position: Reference Physician Member Role: PCP Address: [address] [place], [place] [address] Telecom: Care Team Related Persons Name: LUKASZ CARRANZA Name: ULISES AKBAR Insurance Providers Guarantor name: VIPIN Health Plan Information #: 1 Payer: [facility] FF NON BHP HMO Member Number: NA Policy Number: NA Group Number: NA
== END 2024-07-16 06:46 | disposition home or self-care (01) ==
LOC: HO.HMGCLDS 06:45
PROVIDERS: PCP Internal Medicine; Visit Provider Internal Medicine
DX: Z00.00 Encounter for general adult medical examination without abnormal findings (principal); E78.00 Pure hypercholesterolemia, unspecified; E11.9 Type 2 diabetes mellitus without complications
CPT/HCPCS: 36415; 80053; 80061; 83036; 85025

== ENCOUNTER 2024-08-19 15:07 | Outpatient (REF) | payer OTHER, SELFPAY ==
--- OUTSIDE RECORDS SUMMARY | 2024-08-19 17:37 | XMS_ITS | Continuity of Care Document ---
Author Organization [facility] Address [address] [place] [address]- Care Team Providers Care Food General Manager Name Role Phone Cem LOVE, Jerad Little Primary Care Physician Encounter [facility] [place] Date(s): 07/18/24 - 08/17/24 [facility] [address] [place] [id number] Attending Physician: Cameron Edwards Admitting Physician: Cameron Edwards Referring Physician: Cameron Edwards Encounter Type: Triage Allergies, Adverse Reactions, Alerts [...] Date: 11/13/23 Status: Ordered Repeat number: 1 DEXCOM G7 Sensor DEXCOM G7 Sensor, See Instructions, # 3 each, Refills 11, Tot. Refills 11, Maintenance, Use to continuously monitor blood lgucose levels E10.9 1 sensor every 10 days, 3 sensors per month, 07/18/24 8:56:00 AM EST, Supply, 170.1, cm, 07/18/24 8:23:00 EST, Height Start Date: 07/18/24 Status: Ordered Quantity: 3.0 Unit: each Repeat number: 12 Flonase = 50 mcg, Daily, 0 Refills, Maintenance, 11/13/23 3:15:00 PM EDT, Partial fill upon patient request if the prescription is for a schedule II opioid drug. Start Date: 11/13/23 Status: Ordered Repeat number: 1 Freestyle Lynsey Monitor See Instructions, # 1 [...] Date: 11/13/23 Status: Ordered Repeat number: 1 Gvoke HypoPen 1 mg/0.2 mL subcutaneous solution = 1 mg, Subcutaneous Infusion, Once, To be use for hypoglycemic emergency by family member or accompanying person, if blood glucoses less than 60 and unconscious. Please call 911 after use glucagon pen., # 1 each, 0 Refills, Soft Stop, 07/18/24 8:54:00 AM EST, [facility] #[id number], Partial fill upon patient request if the prescription is for a schedule II opioid drug., 170.1, cm, 07/18/24 8:23:00 EST, Height Start Date: 07/18/24 Status: Ordered Quantity: 1.0 Unit: each Repeat number: 1 Lantus Solostar Pen 100 units/mL subcutaneous solution See Instructions, Take 65 units, twice daily via Subcutaneous Injection. E11.9, # 45 mL, 6 Refills,Maintenance, 11/13/23 3:34:00 PM EDT, Solution, [facility] #[id number], Partial fill upon patient request if the [...] 11/13/23 Status: Ordered Repeat number: 1 metFORMIN 500 mg oral tablet, extended release 1 tablet = 500 mg, By Mouth, Daily, # 30 tablet, 11 Refills, Maintenance, 07/18/24 8:59:00 AM EST, ER Tablet, [facility] #[id number], Partial fill upon patient request if the prescription is fora schedule II opioid drug., 170.1, cm, 07/18/24 8:23:00 EST, Height Start Date: 07/18/24 Stop Date: 07/13/25 Status: Ordered Quantity: 30.0 Unit: tablet Repeat number: 12 methenamine hippurate Start Date: 11/13/23 Status: Ordered Repeat number: 1 mirabegron 50 mg oral tablet, extended release 1 tablet = 50 mg, By Mouth, Daily, do not crush or chew, # 30 tablet, 0 Refills, Maintenance, 07/18/24 8:32:00 AM EST, ER Tablet, Partial fill upon patient request if the prescription is for a schedule II opioid drug. Start Date: 07/18/24 Status: Ordered Quantity: 30.0 Unit: tablet Repeat number: 1 naproxen 500 mg oral tablet 1 tablet = 500 mg, By Mouth, 2 times a day, # 180 tablet, 0 Refills, Maintenance, 07/18/24 8:31:00 AM EST, Tablet, Partial fill upon patient request if the prescription is for a schedule II opioid drug. Start Date: 07/18/24 Status: Ordered Quantity: 180.0 Unit: tablet Repeat number: 1 Ozempic 8 mg/3 mL (2 mg dose) subcutaneous solution See Instructions, INJECT 2 MG UNDER THE SKIN EVERY WEEK, # 3 mL, 5 Refills, Maintenance, 07/18/24 8:56:00 AM EST, [facility] #[id number], 170.1, cm, 07/18/24 8:23:00 EST, Height Start Date: 07/18/24 Status: Ordered Quantity: 3.0 Unit: mL Repeat [...] Care team information Care Team Personnel Name: Jerad Priest MD Position: Reference Physician Member Role: PCP Address: [address] [place] [address] Telecom: Care Team Related Persons Name: LUKASZ CARRANZA Name: ULISES AKBAR Insurance Providers Guarantor name: VIPIN Health Plan Information #: 1 Payer: [facility] FF NON BHP HMO Member Number: NA Policy Number: NA Group Number: NA
--- OUTSIDE RECORDS SUMMARY | 2024-08-19 17:37 | XMS_ITS | Continuity of Care Document ---
Author Organization [facility] Endocrinolo gy and Diabetes Address [address] [place] [id number]- Care Team Providers Care Radial Saw Operator Name Role Phone Cem LOVE, Jerad Little Primary Care Physician [phone] Encounter [facility] ACCT R [id number] Date(s): 07/18/24 - 07/25/24 [facility] Endocrinology and Diabetes [address] [place] [id number] Encounter Diagnosis Type 2 diabetes mellitus(Discharge Diagnosis) - 07/18/24 Attending Physician: Viv Barton MD Encounter Type: Office Visit Allergies, Adverse Reactions, Alerts No Known Allergies [...] Refills, Soft Stop, 07/18/24 8:54:00 AM EST, [facility] #[id number], Partial fill upon patient request if the prescription is for a schedule II opioid drug., 170.1, cm, 07/18/24 8:23:00 EST, Height Start Date: 07/18/24 Status: Ordered Quantity: 1.0 Unit: each Repeat number: 1 Lantus Solostar Pen 100 units/mL subcutaneous solution See Instructions, Take 65 units, twice daily via Subcutaneous Injection. E11.9, # 45 mL, 6 Refills,Maintenance, 11/13/23 3:34:00 PM EDT, Solution, [facility] #[id number], Partial fill upon patient request if the [...] Maintenance, 07/18/24 8:59:00 AM EST, ER Tablet, [facility] #[id number], Partial fill upon patient request if the [...] 5 Refills, Maintenance, 07/18/24 8:56:00 AM EST, [facility] #[id number], 170.1, cm, 07/18/24 8:23:00 EST, Height Start [...] St [facility]us Informant Severe obesity Confirmed Active Diagnosis Diagnosis Type Effective Dates Health Status Cl inical Service Informant Type 2 diabetes mellitus Discharge Diagnosis 07/18/24 Vital Signs Most recent to oldest [Reference Range]: 1 Height 170.1 cm (07/18/24 8:23 AM) Weight 124.7 kg (07/18/24 8:23 AM) Pulse Rate [55-90 bpm] 88 bpm (07/18/24 8:23 AM) Body Mass Index [18.5-24.99 kg/m2] 43.1 kg/m2 *>HHI* (07/18/24 8:23 AM) Blood Pressure [90-138/55-84 mm Hg] 164/ 84mm Hg *H* (07/18/24 8:23 AM) Blood pressure sites Arm, left (07/18/24 8:23 AM) Weight Obtained Via Bed scale (07/18/24 8:23 AM) Social History Social History Type Response Smoking Status Former smoker, quit more than 30 days ago; Other: Quit 7 years ago as of 04/28; entered on: 04/06/23 Sex Sex Representation Female (finding) Note * Dasia Joy: PERFORM Event Display: Patient Education/Instruction Authored Date: [id number] Ambulatory Adult Visit Summary [facility] Endocrinology and Diabetes [facility] [address] [place] [address] Name: CHERYL AKBAR : 1960?? Visit: 07/18/2024 08:20?? Ambulatory Visit Instructions ?? Your Care Team Primary Care Provider Jerad Priest MD? This Visit Provider Viv Barton MD Your Diagnosis Type 2 diabetes mellitus Vitals Signs Pulse Rate: 88 bpm Height: 170.1 cm Systolic Blood Pressure:??164 mm Hg??High Weight: 124.7 kg Diastolic Blood Pressure: 84 mm Hg Body Mass Index:??43.1 kg/m2??Critical ?? Body surface area: 2.43 What to do next Instructions From Your Provider Your ??Goal A1c less than 7% ?? fasting blood glucose goal 80-120 ?? 2-hour after meals blood glucose goal less than 140 ?? Please call if Your Blood sugar is <70 or >400 ?? start metformin ER 500 mg once daily( if you tolerate call to go up to next dose og 500mg twice daily)?? continue Ozempic 2 mg once weekly Continue Lantus??65 units twice daily ?? Please??check your blood sugars 3 times a day before each meal??and bring a blood sugar log,??( or use new CGM DexCom) for review so we can make adjustment??to your insulin. ?? Hypoglycemia Patient Instructions Hypoglycemia or low blood glucose is when your glucose levels fallen low enough to cause symptoms. This is usually <70 mg/dl, but this may vary from person to person. Symptoms of hypoglycemia include:?- feeling shaky ?- feeling sleepy/lethargic ??- being nervous or anxious ?- feeling weak, having no energy ??- sweating, chills, clamminess ?- blurred/impaired vision ??- mood swings, irritability, impatience ?-tingling/numbness in lips, tongue, cheeks ??- confusion ?- headaches ??- palpitations/fast heartbeat ?- coordination problems, clumsiness ??- feeling light-headed or dizzy ?- nightmares or crying out in sleep ??- hunger, nausea ?- seizures ? How to manage hypoglycemia/low blood sugar:?Follow the 15-15 rule: have 15 grams of carbohydrate (options listed below) to raise your blood glucose and check it after 15 minutes. If it is still <70 mg/dl or below your low target, have another serving.?Repeat these steps until your blood glucose is back to normal, eat a meal or snack to ensure it does not go low again.? 15 grams of carbohydrates: ??- 4 ounces (1/2 cup) of juice or regular soda ??- 1 tablespoon of sugar, honey or corn syrup ??- 8 ounces of nonfat or 1% milk ??- 15 pieces of Skittles?- 4-7 pieces of hard candy (lifesavers, peppermints or jellybeans) ??- 3-4 glucose tablets ? Please call your primary care provider or us if you need assistance managing your hypoglycemia ([phone]).? Severe hypoglycemia: When hypoglycemia or low blood sugar is not treated and you need someone to help you recover.?Glucagon can be injected following the instructions in the Glucagon kit.? Please call 911 if the person is unconscious or glucagon is not sufficient or available! Scheduled Follow-Up Appointments 2024 3:20 PM EDT ?? With: Viv Barton MD Where: [facility] Endocrine [address] [place] [address]- Status: Pending Follow-Up Appointments Follow up Appointment - Ordered?-- 3 months( preffers to go 3300), 07/18/24 9:03:00 EST Future Orders Microalbumin Urine (Urine Microalbumin) - Routine, Once, 11/13/23 15:10:00 EDT, Single or RecurringFuture Order, [facility], Urine?? Creatinine - Routine, Once, 11/13/23 15:10:00 EDT, Single or Recurring Future Order, [facility], Blood?? Lipid Panel - Routine, Once, 11/13/23 15:10:00 EDT, Single or Recurring Future Order, [facility], Blood?? Lipid Panel - Routine, Once, 07/18/24 8:43:00 EST, Future Order, [facility], Blood?? Microalbumin Urine (Urine Microalbumin) - Routine, Urine, Once, 07/18/24 8:43:00 EST, [facility], Urine?? Basic Metabolic Panel - Routine, Once, 07/18/24 8:43:00 EST, Future Order, [facility], Blood?? Creatinine Urine (Urine Creatinine) - Routine, Urine, Once, 07/18/24 8:43:00 EST, [facility], Urine?? Medications The list below reflects the information in our records and provided by you today along with any changes made during this visit. Please continue your medications until treatment is completed or stopped by your provider. If this is different from the information you have or there are other questions,please contact the prescribing provider. What How Much When Instructions New Durable Medical Equipment (DEXCOM G7 Sensor) See instructions Refills: 11 Use to continuously monitor blood lgucose levels E10.9 1 sensor every 10 days, 3 sensors per month ?? Pickup at [facility] #[id number] New Glucagon (Gvoke HypoPen 1 mg/ 0.2 mL subcutaneous solution) 1 Milligram Subcutaneous Infusion Once To be use for hypoglycemic emergency by family member or accompanying person, if blood glucoses less than 60 and unconscious. ??Please call 911 after use glucagon pen. ?? Pickup at [facility] #[id number] Changed Durable Medical Equipment (Freestyle Lynsey Monitor) See instructions Duration: 30 Days use as directed for Type 2 Diabetes Mellitus Use with Freestyle lynsey 3 sensors ?? Changed Metformin (metFORMIN 500 mg oral tablet, extended release) 1 tab(s) Oral Daily Duration: 30 Days Pickup at [facility] #[id number] Unchanged Ascorbic Acid (Vitamin C 500 mg oral tablet) 1 tab(s) Oral Daily Unchanged Atorvastatin (atorvastatin 10 mg oral tablet) 1 tab(s) Oral Daily Unchanged Calcium And Vitamin D Combination (Caltrate 600 + D) Oral Twice a day Unchanged Chondroitin/ Glucosamine/ Methylsulfonylmethane (Glucosamine Chondroitin MSM Complex) Unchanged Fexofenadine (Rachael) Oral Unchanged Fluticasone Nasal (Flonase) 50 Microgram Daily Unchanged Insulin Glargine (Lantus Solostar Pen 100 units/ mL subcutaneous solution) See instructions Take 65 units, twice daily via Subcutaneous Injection. E11.9 ?? Unchanged Lorazepam Unchanged Methenamine (methenamine hippurate) Unchanged mirabegron (mirabegron 50 mg oral tablet, extended release) 1 tab(s) Oral Daily do not crush or chew ?? Unchanged Naproxen (naproxen 500 mg oral tablet) 1 tab(s) Oral Twice a day Unchanged semaglutide (Ozempic 8 mg/ 3 mL (2 mg dose) subcutaneous solution) See instructions INJECT 2 MG UNDER THE SKIN EVERY WEEK ?? Pickup at [facility] #[id number] Unchanged Sertraline (sertraline 100 mg oral tablet) 1 tab(s) Oral Daily Pharmacy Information [facility] #[id number]: [address], [place] [id number] [phone] ?? What How Much When Comments Stop Taking Insulin Lispro (Humalog Kwik Pen 100 units/ mL subcutaneous injection) See instructions Take based on sliding scale between 3-15 units via Subcutaneous Infusion, 3 times daily before meals. E11.9. Max daily dose 45 units. ?? Stop Taking Miscellaneous Rx (FREESTYLE LYNSEY 3 SENSOR) See instructions CHANGE EVERY 14 DAYS ?? Stop Taking Divide-3 Polyunsaturated Fatty Acids (Divide-3 Fish Oil) Oral 3 times a day Test Performed Below is a partial list of the tests performed during your Visit. You may have had other tests and procedures not included in this list. Please discuss all test results with your provider. Basic Metabolic Panel?-- Results Pending -- Lipid Panel?-- Results Pending -- POC GLUCOSE ([facility]) POC HBA1C ([facility]) Urine Creatinine?-- Results Pending -- Urine Microalbumin?-- Results Pending -- Lab Test Results Below is a partial list of the most recent Laboratory test results done during your Visit. You may have had other tests and procedures not included in this list. Please discuss all test results with your provider. Test Name Test Result Date/Time POC Glucose ([facility]) 271 mg/dL 07/18/2024 08:34 EST POC HBA1C ([facility]) 9.7 % 07/18/2024 08:36 EST Medications and Immunizations Administered Medications Given During Visit No medications given during this visit.?? Allergies (NKA means No Known Allergies) NKA Common Emergency Awareness Tips IS IT A STROKE? Act FAST and Check for these signs: FACE Does the face look uneven? ARM Does one arm drift down? SPEECH Does their speech sound strange? TIME Call at any sign of stroke ?? Heart Attack Signs Chest discomfort: Most heart attacks involve discomfort in the center of the chest and lasts more than a few minutes, or goes away and comes back. It can feel like uncomfortable pressure, squeezing, fullness or pain. Discomfort in upper body: Symptoms can include pain or discomfort in one or both arms, back, neck, jaw or stomach. Shortness of breath: With or without discomfort. Other signs: Breaking out in a cold sweat, nausea, or lightheaded. Remember, MINUTES DO MATTER. If you experience any of these heart attack warning signs, call to get immediate medical attention! ?? Smoking can increase your chances of developing chronic health problems and can cause harmful effects to other family members in your house. If you smoke, you are strongly encouraged to quit. Please call [employer] at [phone] or [phone] ([phone]) or log in to [email or web address] for referrals to smoking cessation programs. ?? The National Suicide Prevention Hotline is available 26/02 if you or someone you know needs to find a reason to keep living. By calling 8-519-241-NinthDecimal (8201) you'll be connected to a skilled, trained counselor at a crisis center in your area. [facility] [employer] Portal You can view and manage your care through the patient portal or by using a health care renee of your choosing. [employer] is a website that allows you to securely view your medical information including your hospital discharge summary, office visit summaries, medications and follow-up visits. You can also request appointments, renew medications, and request access to your medical information using a health care renee of your choosing, or just ask a question. You can enroll at [email or web address] or register during your next office visit. [facility], in keeping with [facility] guidance, no longer requires face masks for staff, patientsor visitors in most situations. Similiar to time spent indoors at other locations, there is the chance that you were exposed to repiratory viruses during your time with us (such as flu or COVID-19). If you develop symptoms concerning for a viral respiratory infection, please seek testing (and treatment if indicated) from your medical provider or home test kit. ?? Disclaimer: The information provided is of a general nature and is intended to be used in conjunction with the recommendations and advice of your health care practitioner. Every effort has been made to ensure that the information provided is accurate and complete at the time it is provided to you however, as your needs change, or, as new information becomes available, different or additional instructions may be required. ?? If you have questions, please consult with your primary care provider or pharmacist, as appropriate. This information is not intended to serve as substitution for assessment and evaluation by a qualified health care provider. If you do not have a primary care provider, you may find a [facility] provider by calling [facility] [employer] [facility] at [phone]. Patient Care team information Care Team Personnel Name: Cem LOVE, Jerad Little Position: Reference Physician Member Role: PCP Address: [address] [place] [address] Telecom: Care Team Related Persons Name: LUKASZ CARRANZA Name: ULISES AKBAR Insurance Providers Guarantor name: VIPIN Health Plan Information #: 1 Payer: [facility] FF NON BHP HMO Member Number: [id number] Policy Number: VIPIN Group Number: [id number] Health Plan Information #: 2 Payer: [facility] FF NON BHP HMO Member Number: [id number] Policy Number: VIPIN Group Number: [id number]
--- OUTSIDE RECORDS SUMMARY | 2024-08-19 17:37 | XMS_ITS | Continuity of Care Document ---
Author Organization [facility] Endocrinolo gy and Diabetes Address [address] [place] [address]- Care Team Providers Care Senior Financial Reporting Accountant Name Role Phone Cem LOVE, Jerad Little Primary Care Physician Encounter [facility] Date(s): 07/18/24 - 08/17/24 [facility] Endocrinology and Diabetes [address] [place] [id number] Encounter Type: Triage Allergies, Adverse Reactions, Alerts [...] Refills, Soft Stop, 07/18/24 8:54:00 AM EST, [facility] #[id number], Partial fill upon patient request if the prescription is for a schedule II opioid drug., 170.1, cm, 07/18/24 8:23:00 EST, Height Start Date: 07/18/24 Status: Ordered Quantity: 1.0 Unit: each Repeat number: 1 Lantus Solostar Pen 100 units/mL subcutaneous solution See Instructions, Take 65 units, twice daily via Subcutaneous Injection. E11.9, # 45 mL, 6 Refills,Maintenance, 11/13/23 3:34:00 PM EDT, Solution, [facility] #[id number], Partial fill upon patient request if the [...] Maintenance, 07/18/24 8:59:00 AM EST, ER Tablet, [facility] #[id number], Partial fill upon patient request if the [...] 5 Refills, Maintenance, 07/18/24 8:56:00 AM EST, [facility] #[id number], 170.1, cm, 07/18/24 8:23:00 EST, Height Start [...] Position: Reference Physician Member Role: PCP Address: [address] [place] [id number] Telecom: Care Team Related Persons Name: LUKASZ ACRRANZA Name: ULISES AKBAR Insurance Providers Guarantor name: VIPIN Health Plan Information #: 1 Payer: [facility] FF NON BHP HMO Member Number: NA Policy Number: NA Group Number: NA
== END 2024-08-19 15:08 | disposition home or self-care (01) ==
LOC: HO.MAMMO 15:07
PROVIDERS: Visit Provider Internal Medicine
DX: Z12.31 Encounter for screening mammogram for malignant neoplasm of breast (principal)
CPT/HCPCS: 77063; 77067

== ENCOUNTER 2024-12-19 12:41 | Outpatient (REF) | payer OTHER, SELFPAY ==
[2024-12-19 16:12] LABS: Appearance Urine Cloudy; Color Urine Yellow; Glucose Urine UA Negative (Negative); Leukocyte Esterase Urine Small (1+) (Negative); Nitrite Urine Positive (Negative); PH 6.5 (5.0-9.0); UMIC TRIGGER UACC YES; Urine Blood Negative (Negative); Urine Ketones Negative (Negative); Urine Protein Negative (Neg-Trace)
[2024-12-19 16:29] LABS: Bacteria Urine 4+ (None Seen); Hyaline Casts Urine 0-2 /LPF (0-2); UACC Culture Trigger YES
== END 2024-12-19 12:42 | disposition home or self-care (01) ==
LOC: HO.HMGCLDS 12:41
PROVIDERS: PCP Internal Medicine; Visit Provider Internal Medicine
DX: R30.0 Dysuria (principal)
CPT/HCPCS: 81001; 87086

== ENCOUNTER 2025-02-26 10:25 | Outpatient (AMB) | payer OTHER, SELFPAY ==
--- NOTE | 2025-02-26 10:34 | A.OFFPC_ITS ---
Vital Signs 02/26/25 10:41 Height 5 ft 6.65 in Weight 289 lb 2 oz BMI 45.8 BP 160/90 H Blood Pressure Location Rt brachial Position Sitting Respiration 20 Pulse 69 Pulse Source Pulse Oximeter Temp 97.9 F Temp Source Temporal Artery Scan Pulse Oximetry (%) 93 Oxygen Delivery Method Room Air Intake Visit Reasons: Establish Care Government Services Professional Required: No Accompanied by: Self / Same As Patient Allergies latex (LATEX) Allergy (Intermediate, Verified 02/26/25 11:26) RASH dust Allergy (Intermediate, Uncoded 02/26/25 11:26) Sneezing pollen Allergy (Intermediate, Uncoded 02/26/25 11:26) Sneezing Medication List - Last Reconciled 02/26/25 by Shaila Ashford PA-C atorvastatin 20 mg PO DAILY cod liver oil 1 cap PO DAILY fexofenadine (Rachael Allergy) 60 mg PO BID fexofenadine (Rachael Allergy) 180 mg PO DAILY flash glucose sensor (FreeStyle Lynsey 14 Day Sensor kit) As directed fluticasone propionate 50 mcg/actuation 1 spray intranasal BID insulin glargine (Lantus Solostar U-100 Insulin) 65 units subcut BID insulin lispro (Humalog KwikPen (U-100) Insulin) subcut lorazepam 0.5 mg PO QID PRN metformin ER 500 mg PO DAILY methenamine hippurate 1 g PO DAILY 90 days mirabegron ER (Myrbetriq) 25 mg PO DAILY 30 days naproxen 500 mg PO BID pen needle, diabetic (BD Anaya 2nd Gen Pen Needle) 5 times a day semaglutide (Ozempic) 2 mg subcut QWEEK sertraline 100 mg PO DAILY sertraline 50 mg PO DAILY triamcinolone acetonide 0.1% appl topical BID Tobacco use date assessed: 02/26/25 Fall risk assessment: No Falls in past year Last assessed Fall Risk: 02/26/25 Dental Screening Dental Screen Date: 02/26/25 Did you have a dental visit in the last 12 months?: Yes Did you have a dental problem in the last 6 months where you did not have access to dental care?: No Was dental information given to patient?: Patient has dentist HPI Establish Care HPI Details The patient is a 65-year-old female presenting for a new patient appointment and management of multiple chronic conditions. The patient has been experiencing urinary incontinence for the past few weeks, characterized by urgency and frequent urination, which has been distressing and impacting her daily life. She has been under the care of a urologist for two years and has undergone bladder Botox treatments, which have not fully resolved her symptoms. She reports recurrent urinary tract infections and has been referred to an infectious disease specialist, who found no severe infection requiring intravenous antibiotics. The patient has a history of diabetes mellitus, managed with insulin and metformin, with recent A1c levels in the low 7s or high 6s. She is also on atorvastatin for hyperlipidemia and reports taking cod liver oil for general well-being and digestive health. The patient has been experiencing anxiety and depression, exacerbated by recent life changes, including her son's divorce and her chcf. She takes sertraline and lorazepam as needed for these conditions. The patient reports obesity and has been on Ozempic, which she feels has plateaued in effectiveness. She is considering switching to Mounjaro for better weight management. The patient has osteoarthritis and has not had a recent bone scan, although she acknowledges the need for one due to her age. Social History - Family status: Lives with her son, who is and has children. - Employment: Recently retired in January. - Housing: Describes her home environmen t as chaotic due to family living arrangements. - Weight management: Reports being on Oz empic for obesity management. [facility] Medical History (Updated 02/26/25 @ 16:02 by Shaila Ashford PA-C) Osteoarthritis Morbid obesity with BMI of 45.0-49.9, adult Hypertension Hyperlipidemia Type 2 diabetes mellitus with hemoglobin A1c goal of less than 7.0% Anxiety and depression Urinary urgency Elevated cholesterol Morbid obesity Breast calcification, left Arthritis Anxiety Tendonitis Diabetes type 2, uncontrolled Surgical History History of cystoscopy Hx of left breast biopsy Hx of right breast biopsy Hx of colonoscopy Hx of section H/O cervical polypectomy Family History Mother Kidney carcinoma Father Glaucoma High blood pressure Alzheimer's dementia Social History Household Members Other:: son Housing: House Alcohol intake: current Alcohol intake frequency: holidays/special occasions only Patient Tobacco Use Status: Former Tobacco user service: No 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 1. Little interest or pleasure in doing things: more than half the days 2. Feeling down, depressed, or hopeless: nearly every day 3. Trouble falling or staying asleep, or sleeping too much: not at all 4. Feeling tired or having little energy: nearly every day 5. Poor appetite or overeating: not at all 6. Feeling bad about yourself - or that you are a failure or have let yourself or your family down: not at all 7. Trouble concentrating on things, such as reading the newspaper or watching television: not at all 8. Moving or speaking so slowly that other people could have noticed. Or the opposite - being so fidgety or restless that you have been moving around a lot more than usual: not at all 9. Thoughts that you would be better off or of hurting yourself in some way: not at all Total score: 8 Depression Screening Interpretation: Positive Depression Screening Follow-up: Existing condition, In treatment and Follow-up Visit Requested Depression Screening Done: Yes 63928 - PHQ-9 Billing: Yes Source: Developed by Drs. Rocky Hester, Tawnya Obregon, Ariel Sorensen and colleagues, with an educational makayla from [employer]. Thrive Questionnaire Date Thrive assessed: 02/26/25 I am a: Patient What is your living situation today?: I have a steady place to live Within the past 12 months, did the food you bought not last and you didn't have the money to get more?: Never true Within the past 12 months, did you worry whether your food would run out before you got money to buy more?: Never true Do you have trouble paying for medicines?: No Do you have trouble getting transportation to medical appointments?: No Do you have trouble paying your heating and electricity bill?: No Do you have trouble taking care of your child, family member or friend?: No Do you have trouble with day-to-day activities such as bathing, preparing meals, shopping, managing finances, etc.?: No Are you currently unemployed and looking for a job?: No Are you interested in more education?: No Please select the resources that you would like help with: None Currently or been in a relationship where the following occur: No concerns reported THRIVE Score: 0 AUDIT C Alcohol Use Questionnaire (AUDIT-C) 1. How often do you have a drink containing alcohol?: Monthly or less 2. How many drinks containing alcohol do you have on a typical day when you are drinking?: 1 or 2 3. How often do you have six or more drinks on one occasion?: Never Total Score: 1 Score Reviewed/Action Taken: No KLEVER-7 AMB Questionnaire KLEVER-7 Date KLEVER - 7 assessed: 02/26/25 Feeling nervous, anxious, or on edge: 2 = More than half the days Not being able to stop or control worryin = Nearly every day Worrying too much about different things: 3 = Nearly every day Trouble relaxin = Nearly every day Being so restless that it is hard to sit still: 0 = Not at all Becoming easily annoyed or irritable: 3 = Nearly every day Feeling afraid as if something awful might happen: 0 = Not at all Total KLEVER-7 score (0-4 normal; 5-9 mild; 10-14 moderate; 15-21 severe): 14 Source: Developed by Drs. Rocky Hester, Tawnya Obregon, Ariel Sorensen and colleagues, with an educational makayla from [employer]. KLEVER-7 Assessment Billing KLEVER-7 Assessment Tool: KLEVER-7 Assessment [id number] Review of Systems Const Details: - Genitourinary: Reports urinary urgency and incontinence for the past few weeks. - Endocrine: Reports diabetes mellitus, managed with insulin and metformin. - Psychiatric: Reports anxiety and depression, exacerbated by recent life changes. - Musculoskeletal: Reports osteoarthritis. Physical exam (Primary Care) Vital Signs: Last Vital Signs Temp 97.9 F 02/26/25 10:41 Pulse 69 02/26/25 10:41 Resp 20 02/26/25 10:41 BP 160/90 H 02/26/25 10:41 Pulse Ox 93 02/26/25 10:41 Oxygen Delivery Method Room Air 02/26/25 10:41 Care Plan Goal for BP management: <140/90 patient will be started on furosemide 20 mg daily and return in 1 month for blood pressure check/with diary of blood pressures BMI result Body Mass Index 45.8 BMI Assessment/Plan discussion: High BMI High, discussed plan: lifestyle, weight reduction, dietary, physical activity and alcohol moderation Tobacco/Smoking Status: Tobacco use Status Tobacco use date assessed 02/26/25 02/26/25 11:12 Patient Tobacco Use Status Former Tobacco user 02/26/25 11:03 Tobacco use type 02/26/25 11:12 PHQ-9: PHQ-9 Score PHQ-9: Total score 8 02/26/25 11:28 Depression Screening Interpretation: Positive Depression Screening Follow-up: Existing condition, In treatment and Follow-up Visit Requested Thrive Assessment: Date of Thrive Assessment Date Thrive assessed 02/26/25 02/26/25 10:40 Currently or been in a relationship where the following occur: No concerns reported Const Other: Appearance: Alert. Oriented X3. No acute distress. Head: Normal external exam. Normocephalic. Atraumatic. Eyes: Pupils are equal, round, and reactive to light. Extraocular movements intact. Conjunctiva and sclera normal. Eyelids normal. Throat: Pharynx normal. Uvula midline. Moist mucous membranes. Neck: Normal inspection. Neck supple. Full range of motion. Cardiovascular: Normal heart rate and rhythm. Heart sound normal. No murmurs noted. Pulses normal throughout. Respiratory: No respiratory distress. Painless inspiration. Breath sounds normal. No wheezes/rales/rhonchi noted. No accessory muscle usage noted or decreased air movement noted. Back: Full range of motion noted. Skin: Skin warm and dry. Normal skin color. Normal skin turgor. No rashes/lesions/lacerations noted. Extremities: No lower extremity edema. Extremities exhibit normal range of motion. Neuro: Oriented X 3. No motor deficit. No sensory deficit. Reflexes normal. Results Reviewed Results Reviewed: - Labs: Previous urine culture showed mixed bacteria, indicating possible contamination. - Labs: Previous urine culture in April 2024 showed sensitivity to cefalosin and gentamicin. - Labs: Recent A1c levels in the low 7s or high 6s. Coding Level of Care Code New Pt Level 4 (54490) Complex EM visit Add On G2211 Diagnoses UTI (urinary tract infection) N39.0 Urine incontinence R32 Type 2 diabetes mellitus with hemoglobin A1c goal of less than 7.0% E11.9 Hyperlipidemia E78.5 Hypertension I10 Anxiety and depression F41.9; F32.A Morbid obesity with BMI of 45.0-49.9, adult E66.01; Z68.42 Osteoarthritis M19.90 Additional Codes KLEVER-7 Assessment Billing - KLEVER-7 Assessment Tool: KLEVER-7 Assessment [id number] ([id number]) PHQ-9 - 98997 - PHQ-9 Billing: Yes ([id number]) Time Spent (min) 45 Assessment & Plan Assessment & Plan (1) UTI (urinary tract infection): Code(s): N39.0 - Urinary tract infection, site not specified Category: Medical Plan: The patient will be started on Macrobid for the treatment of urinary tract infection, with instructions to provide a urine sample before starting the antibiotic to ensure accurate culture results. (2) Urine incontinence: Code(s): R32 - Unspecified urinary incontinence Category: Medical Plan: The patient is advised to see a pelvic specialist for bladder exercises to manage urinary incontinence. (3) Type 2 diabetes mellitus with hemoglobin A1c goal of less than 7.0%: Code(s): E11.9 - Type 2 diabetes mellitus without complications Category: Medical Plan: The patient's diabetes management will continue with insulin and metformin, with monitoring of A1c levels to ensure control. Condition is chronic and stable will continue to monitor. (4) Hyperlipidemia: Code(s): E78.5 - Hyperlipidemia, unspecified Category: Medical Plan: The patient will continue atorvastatin for hyperlipidemia management. Condition is chronic and stable continue to monitor. (5) Hypertension: Code(s): I10 - Essential (primary) hypertension Category: Medical Plan: The patient will be started on a diuretic to manage hypertension, with follow-up in one month to assess blood pressure control and kidney function. (6) Anxiety and depression: Code(s): F41.9 - Anxiety disorder, unspecified; F32.A - Depression, unspecified Category: Medical Plan: The patient will continue sertraline and lorazepam as needed for anxiety management, with a plan to reduce lorazepam usage to once nightly. The patient will continue sertraline for depression management, with consideration for referral to a psychiatrist for medication management. (7) Morbid obesity with BMI of 45.0-49.9, adult: Code(s): E66.01 - Morbid (severe) obesity due to excess calories; Z68.42 - Body mass index [BMI] 45.0-49.9, adult Category: Medical Plan: The patient will transition from Ozempic to Mounjaro for obesity management, starting at the lowest dose and titrating up monthly. (8) Osteoarthritis: Code(s): M19.90 - Unspecified osteoarthritis, unspecified site Category: Medical Plan: The patient is advised to have a bone scan to assess for osteopenia or osteoporosis due to her age and osteoarthritis. Plan Plan Patient was informed and verbally consented to the use of an ambient scribe for clinic note documentation during this visit. 1. Urinary Tract Infection The patient will be started on Macrobid for the treatment of urinary tract infection, with instructions to provide a urine sample before starting the antibiotic to ensure accurate culture results. 2. Urinary Incontinence The patient is advised to see a pelvic specialist for bladder exercises to manage urinary incontinence. 3. Diabetes Mellitus The patient's diabetes management will continue with insulin and metformin, with monitoring of A1c levels to ensure control. 4. Hyperlipidemia The patient will continue atorvastatin for hyperlipidemia management. 5. Hypertension The patient will be started on a diuretic to manage hypertension, with follow-up in one month to assess blood pressure control and kidney function. 6. Anxiety The patient will continue sertraline and lorazepam as needed for anxiety management, with a plan to reduce lorazepam usage to once nightly. 7. Depression The patient will continue sertraline for depression management, with consideration for referral to a psychiatrist for medication management. 8. Obesity The patient will transition from Ozempic to Mounjaro for obesity management, starting at the lowest dose and titrating up monthly. 9. Osteoarthritis The patient is advised to have a bone scan to assess for osteopenia or osteoporosis due to her age and osteoarthritis. During the visit, we discussed the management of the patient's urinary tract infection with Macrobid, emphasizing the importance of obtaining a urine sample prior to starting antibiotics to ensure accurate culture results. We also talked about transitioning from Ozempic to Mounjaro for obesity management, starting at the lowest dose and titrating up monthly. The patient was advised to see a pelvic specialist for bladder exercises to manage urinary incontinence and to have a bone scan to assess for osteopenia or osteoporosis. We reviewed her current medications, including insulin, metformin, atorvastatin, sertraline, and lorazepam, and discussed the plan to reduce lorazepam usage to once nightly. The patient was informed about the need for follow-up in one month to assess blood pressure control and kidney function after starting a diuretic for hypertension management. Orders: Orders UA CC w/rflx Micro + Cult Today R39.15 - Urgency of urination Vitamin B12 and Folate Today Z00.00 - Encounter for general adult medical examination without abnormal findings Magnesium Today Z00.00 - Encounter for general adult medical examination without abnormal findings XR DEXA axial skeleton Today M81.0 - Age-related osteoporosis without current pathological fracture Basic Metabolic Panel Today E11.65 - Type 2 diabetes mellitus with hyperglycemia Microalbumin, Random (w Creat) Today E11.9 - Type 2 diabetes mellitus without complications TSH reflex Free T4 Today Z00.00 - Encounter for general adult medical examination without abnormal findings Vitamin D 25-OH Total Today Z00.00 - Encounter for general adult medical examination without abnormal findings Referrals Psychiatry Outpatient Consultation Service F32.A - Depression, unspecified, F41.9 - Anxiety disorder, unspecified Medications: New nitrofurantoin monohyd/m-cryst 100 mg (Macrobid) must administer with a meal/food 100 mg PO BID 14 caps 0RF 7 days furosemide (Lasix) 20 mg PO DAILY 30 tabs 0RF tirzepatide (Mounjaro) for 4 weeks 2.5 mg (0.5 mL) subcut QWEEK 2 mL 0RF E11.65 - Type 2 diabetes mellitus with hyperglycemia, E66.01 - Morbid (severe) obesity due to excess calories Refilled mirabegron ER (Myrbetriq) 25 mg PO DAILY 30 tabs 1RF 30 days methenamine hippurate 1 g PO DAILY 90 tabs 2RF 90 days Patient Instructions: - Provide a urine sample before starting Macrobid to ensure accurate culture results. - Transition from Ozempic to Mounjaro, starting at the lowest dose and titrating up monthly. - See a pelvic specialist for bladder exercises to manage urinary incontinence. - Have a bone scan to assess for osteopenia or osteoporosis. - Continue current medications, including insulin, metformin, atorvastatin, sertraline, and lorazepam, with a plan to reduce lorazepam usage to once nightly. - Follow up in one month to assess blood pressure control and kidney function after starting a diuretic.
[2025-02-26 10:41] VITALS: BP 160/90; PULSE 69; RESP 20; TEMP 36.6; O2SAT 93; BMI 45.8
--- OUTSIDE RECORDS SUMMARY | 2025-02-26 11:17 | XMS_ITS | Patient Health Record ---
Author Organization [facility] Address [address] [place] [address] Care Team Providers Care Gourmet Coffee Attendant Name Role Phone Cem (RETIRED) Jerad LOVE Primary Care Provider Unavailable Rocky Hodgson Unavailable [phone] Reason For Referral No Information Plan Of Treatment No Information Insurance Providers Payer Name Payer Address Payer Phone Subscriber Number Group Number Insured Name Patient Relationship to Insured Coverage Start Date Coverage End Date [facility] [address] [place] [phone] [id number] CHERYL AKBAR Self - patient is the insured
== END 2025-02-26 11:55 | disposition home or self-care (01) ==
LOC: HO.HMCSH 10:26
PROVIDERS: PCP Internal Medicine; Visit Provider Physician Assistant Medical
DX: N39.0 Urinary tract infection, site not specified (principal); R32 Unspecified urinary incontinence; E11.9 Type 2 diabetes mellitus without complications; E78.5 Hyperlipidemia, unspecified; I10 Essential (primary) hypertension; F41.9 Anxiety disorder, unspecified; F32.A Depression, unspecified; E66.01 Morbid (severe) obesity due to excess calories; Z68.42 Body mass index [BMI] 45.0-49.9, adult; M19.90 Unspecified osteoarthritis, unspecified site

== ENCOUNTER → 2025-02-26 10:25 | Outpatient (BNVA) | payer OTHER, SELFPAY | PROVIDERS: PCP Internal Medicine; Visit Provider Physician Assistant Medical | DX: N39.0 Urinary tract infection, site not specified (principal); R32 Unspecified urinary incontinence; E11.9 Type 2 diabetes mellitus without complications; E78.5 Hyperlipidemia, unspecified; I10 Essential (primary) hypertension; F41.9 Anxiety disorder, unspecified; F32.A Depression, unspecified; E66.01 Morbid (severe) obesity due to excess calories; Z68.42 Body mass index [BMI] 45.0-49.9, adult; M19.90 Unspecified osteoarthritis, unspecified site; Z13.31 Encounter for screening for depression; Z13.39 Encounter for screening examination for other mental health and behavioral disorders | CPT/HCPCS: 96127 ==

== ENCOUNTER 2025-03-06 11:04 | Outpatient (REF) | payer OTHER, SELFPAY ==
--- OUTSIDE RECORDS SUMMARY | 2025-03-06 11:13 | XMS_ITS | Patient Health Record ---
Author Organization [facility] Address [address] [place] [address] Care Team Providers Care Fairing Man Name Role Phone Cem (RETIRED) Jerad LOVE Primary Care Provider Unavailable Rocky Hodgson Unavailable [phone] Reason For Referral No Information Plan Of Treatment No Information Insurance Providers Payer Name Payer Address Payer Phone Subscriber Number Group Number Insured Name Patient Relationship to Insured Coverage Start Date Coverage End Date [facility] [address] [place] [phone] [id number] CHERYL AKBAR Self - patient is the insured
[2025-03-06 14:53] LABS: Anion Gap 10 (12-20); Blood Urea Nitrogen 14 mg/dL (9-16); Calcium 9.7 mg/dL (8.4-10.2); Carbon Dioxide 27 mmol/L (22-29); Chloride 107 mmol/L (96-108); Estimated Glomerular Filt Rate > 60; Magnesium 1.5 mg/dL (1.6-2.6); Potassium 4.0 mmol/L (3.3-5.1); Sodium 140 mmol/L (135-145)
[2025-03-06 15:20] LABS: Folate 9.1 ng/mL (> or = 4.0); Vitamin B12 441 pg/mL (200-900)
== END 2025-03-06 11:05 | disposition home or self-care (01) ==
LOC: HO.HMGCLDS 11:04
PROVIDERS: PCP Physician Assistant Medical; Visit Provider Physician Assistant Medical
DX: Z00.00 Encounter for general adult medical examination without abnormal findings (principal); E11.65 Type 2 diabetes mellitus with hyperglycemia
CPT/HCPCS: 36415; 80048; 82306; 82607; 82746; 83735; 84443

== ENCOUNTER 2025-03-26 10:28 | Outpatient (AMB) | payer OTHER, SELFPAY ==
[2025-03-26 10:33] VITALS: BP 126/62; PULSE 90; RESP 16; TEMP 36.3; O2SAT 95; BMI 48.1
--- NOTE | 2025-03-26 10:33 | MHC.PC.OV ---
Vital Signs 03/26/25 10:33 Height 5 ft 5.65 in Weight 295 lb 2 oz BMI 48.1 BP 126/62 Blood Pressure Location Lt brachial Position Sitting Respiration 16 Pulse 90 Pulse Source Pulse Oximeter Temp 97.3 F Temp Source Temporal Artery Scan Pulse Oximetry (%) 95 Oxygen Delivery Method Room Air Intake Visit Reasons: 4 week follow up Assistant Community Director Required: No Accompanied by: Self / Same As Patient Allergies latex (LATEX) Allergy (Intermediate, Verified 03/26/25 12:48) RASH dust Allergy (Intermediate, Uncoded 03/26/25 12:48) Sneezing pollen Allergy (Intermediate, Uncoded 03/26/25 12:48) Sneezing Medication List - Last Reconciled 03/26/25 by Shaila Ashford PA-C atorvastatin 20 mg PO DAILY cholecalciferol (vitamin D3) 50 mcg PO DAILY cod liver oil 1 cap PO DAILY estradiol 0.01%(0.1mg/gram) vaginal fexofenadine (Rachael Allergy) 180 mg PO DAILY flash glucose sensor (Little Questyle Lynsey 14 Day Sensor kit) As directed fluticasone propionate 50 mcg/actuation 1 spray intranasal BID furosemide 20 mg PO DAILY insulin glargine (Lantus Solostar U-100 Insulin) 65 units subcut BID insulin lispro (Humalog KwikPen (U-100) Insulin) subcut lorazepam 0.5 mg PO QID PRN metformin ER 500 mg PO DAILY methenamine hippurate 1 g PO DAILY 90 days mirabegron ER (Myrbetriq) 25 mg PO DAILY 30 days naproxen 500 mg PO BID pen needle, diabetic (BD Anaya 2nd Gen Pen Needle) 5 times a day sertraline 100 mg PO DAILY sertraline 50 mg PO DAILY sulfamethoxazole-trimethoprim 800-160 mg (Bactrim DS) 1 tab PO BID 7 days tirzepatide 5 mg (0.5 mL) subcut QWEEK 4 weeks triamcinolone acetonide 0.1% appl topical BID Tobacco use date assessed: 02/26/25 Fall risk assessment: No Falls in past year Last assessed Fall Risk: 02/26/25 Dental Screening Dental Screen Date: 02/26/25 Did you have a dental visit in the last 12 months?: Yes Did you have a dental problem in the last 6 months where you did not have access to dental care?: No Was dental information given to patient?: Patient has dentist HPI 4 week follow up HPI Details The patient is a 65-year-old female presenting with urinary symptoms and follow-up for diabetes management. The patient reports persistent urinary symptoms despite previous treatment with Macrobid for a urinary tract infection, which provided partial relief. She was subsequently seen by a urogynecologist who confirmed the diagnosis and prescribed the same antibiotic. The patient has experienced urinary incontinence, requiring frequent changes of clothing, and has been unable to use diuretics due to increased urination. The patient has a history of hypomagnesemia, which was identified during a previous visit. She was prescribed magnesium supplements, which improved her energy levels, but follow-up blood work to reassess magnesium levels was not completed. The patient has Type 2 Diabetes Mellitus, managed with Mounjaro and dietary adjustments. Her last recorded HbA1c was 6.8%, indicating good glycemic control. She uses a Dexcom device for continuous glucose monitoring, which shows an average glucose level of 160 mg/dL. The patient reports hypertension, with home blood pressure readings occasionally reaching 160/90 mmHg, although today's reading was 126/62 mmHg. She monitors her blood pressure at home and has not started antihypertensive medication. The patient is also focused on weight management, using Mounjaro to aid in weight loss. She has been advised to increase the dosage gradually and expects to see weight reduction over the coming months. Social History - Exercise: Engages in gardening and other physical activities. - Weight management: Actively managing weight with Mounjaro and dietary adjustments. [facility] Medical History (Updated 03/26/25 @ 12:53 by Shaila Ashford PA-C) Low magnesium level Dysuria Osteoarthritis Morbid obesity with BMI of 45.0-49.9, adult Hypertension Hyperlipidemia Type 2 diabetes mellitus with hemoglobin A1c goal of less than 7.0% Anxiety and depression Urinary urgency Elevated cholesterol Morbid obesity Breast calcification, left Arthritis Anxiety Tendonitis Diabetes type 2, uncontrolled Surgical History History of cystoscopy Hx of left breast biopsy Hx of right breast biopsy Hx of colonoscopy Hx of section H/O cervical polypectomy Family History Mother Kidney carcinoma Father Glaucoma High blood pressure Alzheimer's dementia Social History Household Members Other:: son Housing: House Alcohol intake: current Alcohol intake frequency: holidays/special occasions only Patient Tobacco Use Status: Former Tobacco user service: No 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: retired Sexual orientation: Straight/Heterosexual Gender identity: Female Cognitive needs: Yes (cane and walker sometimes) Hearing needs: No Vision needs: Yes (rx glasses/ cheateres) Female Reproductive History Menstrual Age of Menarche: 10 Questionnaire PHQ-9 Over the last 2 weeks, how often have you been bothered by any of the following problems? 1. Little interest or pleasure in doing things: more than half the days 2. Feeling down, depressed, or hopeless: nearly every day 3. Trouble falling or staying asleep, or sleeping too much: not at all 4. Feeling tired or having little energy: nearly every day 5. Poor appetite or overeating: not at all 6. Feeling bad about yourself - or that you are a failure or have let yourself or your family down: not at all 7. Trouble concentrating on things, such as reading the newspaper or watching television: not at all 8. Moving or speaking so slowly that other people could have noticed. Or the opposite - being so fidgety or restless that you have been moving around a lot more than usual: not at all 9. Thoughts that you would be better off or of hurting yourself in some way: not at all Total score: 8 Depression Screening Interpretation: Positive Depression Screening Follow-up: Existing condition, In treatment and Follow-up Visit Requested Depression Screening Done: Yes 89106 - PHQ-9 Billing: Yes Source: Developed by Drs. Rocky Hester, Tawnya Obregon, Ariel Sorensen and colleagues, with an educational makayla from [employer]. Thrive Questionnaire Date Thrive assessed: 02/26/25 I am a: Patient What is your living situation today?: I have a steady place to live Within the past 12 months, did the food you bought not last and you didn't have the money to get more?: Never true Within the past 12 months, did you worry whether your food would run out before you got money to buy more?: Never true Do you have trouble paying for medicines?: No Do you have trouble getting transportation to medical appointments?: No Do you have trouble paying your heating and electricity bill?: No Do you have trouble taking care of your child, family member or friend?: No Do you have trouble with day-to-day activities such as bathing, preparing meals, shopping, managing finances, etc.?: No Are you currently unemployed and looking for a job?: No Are you interested in more education?: No Please select the resources that you would like help with: None Currently or been in a relationship where the following occur: No concerns reported THRIVE Score: 0 AUDIT C Alcohol Use Questionnaire (AUDIT-C) 1. How often do you have a drink containing alcohol?: Monthly or less 2. How many drinks containing alcohol do you have on a typical day when you are drinking?: 1 or 2 3. How often do you have six or more drinks on one occasion?: Never Total Score: 1 Score Reviewed/Action Taken: No KLEVER-7 AMB Questionnaire KLEVER-7 Date KLEVER - 7 assessed: 02/26/25 Feeling nervous, anxious, or on edge: 2 = More than half the days Not being able to stop or control worryin = Nearly every day Worrying too much about different things: 3 = Nearly every day Trouble relaxin = Nearly every day Being so restless that it is hard to sit still: 0 = Not at all Becoming easily annoyed or irritable: 3 = Nearly every day Feeling afraid as if something awful might happen: 0 = Not at all Total KLEVER-7 score (0-4 normal; 5-9 mild; 10-14 moderate; 15-21 severe): 14 Source: Developed by Drs. Rocky Hester, Tawnya Obregon, Ariel Sorensen and colleagues, with an educational makayla from [employer]. KLEVER-7 Assessment Billing KLEVER-7 Assessment Tool: KLEVER-7 Assessment 08162 Review of Systems Const Details: - Genitourinary: Reports urinary frequency and incontinence. Denies dysuria. - Endocrine: Reports stable blood glucose levels with current management. - Cardiovascular: Reports occasional elevated blood pressure readings at home. Denies chest pain or palpitations. All systems reviewed & are unremarkable except as noted in HPI and below Physical exam (Primary Care) Vital Signs: Last Vital Signs Temp 97.3 F 08/21/25 10:33 Pulse 90 03/26/25 10:33 Resp 16 03/26/25 10:33 BP 126/62 03/26/25 10:33 Pulse Ox 95 03/26/25 10:33 Oxygen Delivery Method Room Air 03/26/25 10:33 Care Plan Goal for BP management: <140/90 at Goal BMI result Body Mass Index 48.1 BMI Assessment/Plan discussion: High BMI High, discussed plan: lifestyle, weight reduction, dietary, physical activity, alcohol moderation and other Tobacco/Smoking Status: Tobacco use Status Tobacco use date assessed 02/26/25 03/26/25 10:36 Patient Tobacco Use Status Former Tobacco user 03/26/25 10:36 Tobacco use type 02/26/25 11:54 PHQ-9: PHQ-9 Score PHQ-9: Total score 8 03/26/25 11:23 Depression Screening Interpretation: Positive Depression Screening Follow-up: Existing condition, In treatment and Follow-up Visit Requested Thrive Assessment: Date of Thrive Assessment Date Thrive assessed 02/26/25 03/26/25 10:36 Currently or been in a relationship where the following occur: No concerns reported Const Other: Appearance: Alert. Oriented X3. No acute distress. Head: Normal external exam. Normocephalic. Atraumatic. Eyes: Pupils are equal, round, and reactive to light. Extraocular movements intact. Conjunctiva and sclera normal. Eyelids normal. Throat: Pharynx normal. Uvula midline. Moist mucous membranes. Neck: Normal inspection. Neck supple. Full range of motion. Cardiovascular: Normal heart rate and rhythm. Heart sound normal. No murmurs noted. Pulses normal throughout. Respiratory: No respiratory distress. Painless inspiration. Breath sounds normal. No wheezes/rales/rhonchi noted. Chest nontender. No accessory muscle usage noted or decreased air movement noted. Abdomen: Soft and nontender. No distention noted. Back: No costovertebral angle tenderness. Full range of motion noted. Skin: Skin warm and dry. Normal skin color. Extremities: Extremities exhibit normal range of motion. Neuro: Oriented X 3. No motor deficit. No sensory deficit. Reflexes normal. Results AMB Hemoglobin A1c AMB Hemoglobin A1c 6.8 % Last Edit by JAVIER Allison on 08/21/25 11:33 Results Reviewed Results Reviewed: - Labs: HbA1c 6.8%, indicating good glycemic control. - Labs: Average glucose level 160 mg/dL from Dexcom device. Coding Level of Care Code Est Pt Level 4 (22460) Complex EM visit Add On G2211 Diagnoses UTI (urinary tract infection) N39.0 Low magnesium level R79.0 Type 2 diabetes mellitus with hemoglobin A1c goal of less than 7.0% E11.9 Hypertension I10 Urine incontinence R32 Morbid obesity with BMI of 45.0-49.9, adult E66.01; Z68.42 Additional Codes KLEVER-7 Assessment Billing - KLEVER-7 Assessment Tool: KLEVER-7 Assessment 99853 ([id number]) PHQ-9 - 05474 - PHQ-9 Billing: Yes ([id number]) Assessment & Plan Assessment & Plan (1) UTI (urinary tract infection): Code(s): N39.0 - Urinary tract infection, site not specified Category: Medical Plan: The patient will be started on Bactrim for seven days due to persistent urinary symptoms despite previous treatment with Macrobid. A follow-up urine culture will be conducted to ensure resolution of the infection. (2) Low magnesium level: Code(s): R79.0 - Abnormal level of blood mineral Category: Medical Plan: The patient was advised to complete follow-up blood work to reassess magnesium levels after initial supplementation improved symptoms. (3) Type 2 diabetes mellitus with hemoglobin A1c goal of less than 7.0%: Code(s): E11.9 - Type 2 diabetes mellitus without complications Category: Medical Plan: The patient's diabetes management includes the use of Mounjaro and dietary adjustments, with plans to monitor HbA1c every three months. (4) Hypertension: Code(s): I10 - Essential (primary) hypertension Category: Medical Plan: The patient will continue to monitor blood pressure at home and consider antihypertensive therapy if readings consistently exceed 140/90 mmHg. (5) Urine incontinence: Code(s): R32 - Unspecified urinary incontinence Category: Medical Plan: The patient is considering the use of a bladder stimulator and will evaluate the impact of weight loss on symptoms before proceeding. (6) Morbid obesity with BMI of 45.0-49.9, adult: Code(s): E66.01 - Morbid (severe) obesity due to excess calories; Z68.42 - Body mass index [BMI] 45.0-49.9, adult Category: Medical Plan: The patient will continue using Mounjaro with gradual dose increases to aid in weight loss, with expected improvements over the next six months. Plan Plan Patient was informed and verbally consented to the use of an ambient scribe for clinic note documentation during this visit. 1. Urinary Tract Infection The patient will be started on Bactrim for seven days due to persistent urinary symptoms despite previous treatment with Macrobid. A follow-up urine culture will be conducted to ensure resolution of the infection. 2. Hypomagnesemia The patient was advised to complete follow-up blood work to reassess magnesium levels after initial supplementation improved symptoms. 3. Type 2 Diabetes Mellitus The patient's diabetes management includes the use of Mounjaro and dietary adjustments, with plans to monitor HbA1c every three months. 4. Hypertension The patient will continue to monitor blood pressure at home and consider antihypertensive therapy if readings consistently exceed 140/90 mmHg. 5. Urinary Incontinence The patient is considering the use of a bladder stimulator and will evaluate the impact of weight loss on symptoms before proceeding. 6. Weight Management The patient will continue using Mounjaro with gradual dose increases to aid in weight loss, with expected improvements over the next six months. During the visit, I discussed with the patient the management of her urinary tract infection, recommending a course of Bactrim and a follow-up urine culture to confirm resolution. We also reviewed her diabetes management, emphasizing the importance of regular HbA1c monitoring and dietary adjustments. The patient was informed about the potential benefits of a bladder stimulator for urinary incontinence and advised to consider this option after evaluating the effects of weight loss. Orders: Orders Magnesium Today Z00.00 - Encounter for general adult medical examination without abnormal findings UA CC w/rflx Micro + Cult Today R30.0 - Dysuria Basic Metabolic Panel Today R30.0 - Dysuria AMB Hemoglobin A1c Today E11.65 - Type 2 diabetes mellitus with hyperglycemia, E11.9 - Type 2 diabetes mellitus without complications Medications: New sulfamethoxazole-trimethoprim 800-160 mg (Bactrim DS) 1 tab PO BID 14 tabs 0RF 7 days sertraline 100 mg PO DAILY 90 tabs 3RF fluticasone propionate 50 mcg/actuation administer into each nostril 1 spray intranasal BID 16 grams 3RF blood pressure kit-extra large Monitor blood pressure daily 1 ea 0RF sertraline 50 mg PO DAILY 90 tabs 3RF Changed From tirzepatide (Mounjaro) for 4 weeks 2.5 mg (0.5 mL) subcut QWEEK 2 mL 0RF E11.65 - Type 2 diabetes mellitus with hyperglycemia, E66.01 - Morbid (severe) obesity due to excess calories To tirzepatide for 4 weeks 5 mg (0.5 mL) subcut QWEEK 2 mL 0RF 4 weeks E11.65 - Type 2 diabetes mellitus with hyperglycemia, E66.01 - Morbid (severe) obesity due to excess calories Patient Instructions: - Take Bactrim as prescribed for seven days. - Schedule follow-up urine culture to confirm infection resolution. - Complete blood work to reassess magnesium levels. - Monitor blood pressure at home and report if consistently high. - Continue using Mounjaro and follow dietary recommendations for weight management. - Consider bladder stimulator for urinary incontinence after weight loss evaluation.
--- OUTSIDE RECORDS SUMMARY | 2025-03-26 11:58 | XMS_ITS | Patient Health Record ---
Author Organization [facility] Address [address] [place] [address] Care Team Providers Care Clinical Project Manager Name Role Phone Cem (RETIRED) Jerad LOVE Primary Care Provider Unavailable Rocky Hodgson Unavailable [phone] Reason For Referral No Information Plan Of Treatment No Information Insurance Providers Payer Name Payer Address Payer Phone Subscriber Number Group Number Insured Name Patient Relationship to Insured Coverage Start Date Coverage End Date [facility] [address] [place] [phone] [id number] CHERYL AKBAR Self - patient is the insured
== END 2025-03-26 11:37 | disposition home or self-care (01) ==
LOC: HO.HMCSH 10:28
PROVIDERS: PCP Internal Medicine; Visit Provider Physician Assistant Medical
DX: N39.0 Urinary tract infection, site not specified (principal); R79.0 Abnormal level of blood mineral; E11.9 Type 2 diabetes mellitus without complications; I10 Essential (primary) hypertension; R32 Unspecified urinary incontinence; E66.01 Morbid (severe) obesity due to excess calories; Z68.42 Body mass index [BMI] 45.0-49.9, adult; E11.65 Type 2 diabetes mellitus with hyperglycemia

== ENCOUNTER → 2025-03-26 10:28 | Outpatient (BNVA) | payer OTHER, SELFPAY | PROVIDERS: PCP Internal Medicine; Visit Provider Physician Assistant Medical | DX: I10 Essential (primary) hypertension (principal); N39.0 Urinary tract infection, site not specified; R32 Unspecified urinary incontinence; E66.01 Morbid (severe) obesity due to excess calories; E83.42 Hypomagnesemia; R30.0 Dysuria; E11.65 Type 2 diabetes mellitus with hyperglycemia; Z68.42 Body mass index [BMI] 45.0-49.9, adult | CPT/HCPCS: 83036; 96127 ==

== ENCOUNTER 2025-03-27 11:55 | Outpatient (REF) | payer OTHER, SELFPAY ==
--- OUTSIDE RECORDS SUMMARY | 2025-03-27 11:58 | XMS_ITS | Patient Health Record ---
Author Organization [facility] Address [address] [place] [address] Care Team Providers Care Marine Engineer Name Role Phone Cem (RETIRED) Jerad LOVE Primary Care Provider Unavailable Rocky Hodgson Unavailable [phone] Reason For Referral No Information Plan Of Treatment No Information Insurance Providers Payer Name Payer Address Payer Phone Subscriber Number Group Number Insured Name Patient Relationship to Insured Coverage Start Date Coverage End Date [facility] [address] [place] [phone] [id number] CHERYL AKBAR Self - patient is the insured
[2025-03-27 15:07] LABS: Anion Gap 12 (12-20); Blood Urea Nitrogen 13 mg/dL (9-16); Calcium 9.4 mg/dL (8.4-10.2); Carbon Dioxide 25 mmol/L (22-29); Chloride 107 mmol/L (96-108); Estimated Glomerular Filt Rate > 60; Magnesium 1.7 mg/dL (1.6-2.6); Potassium 4.0 mmol/L (3.3-5.1); Sodium 140 mmol/L (135-145)
[2025-03-27 15:47] LABS: Appearance Urine Clear; Glucose Urine UA 100 mg/dL (Negative); PH 6.5 (5.0-9.0); Specific Gravity - Urine 1.020 (1.005-1.025); UMIC TRIGGER UACC YES
== END 2025-03-27 11:56 | disposition home or self-care (01) ==
LOC: HO.HMGCLDS 11:55
PROVIDERS: PCP Internal Medicine; Visit Provider Physician Assistant Medical
DX: Z00.00 Encounter for general adult medical examination without abnormal findings (principal); R30.0 Dysuria
CPT/HCPCS: 36415; 80048; 81001; 81003; 83735

== ENCOUNTER 2025-04-09 10:21 | Outpatient (REF) | payer OTHER, SELFPAY ==
--- OUTSIDE RECORDS SUMMARY | 2025-04-09 11:40 | XMS_ITS | Patient Health Record ---
Author Organization [facility] Address [address] [place] [address] Care Team Providers Care Windows Desktop Engineer Name Role Phone Cem (RETIRED) Jerad LOVE Primary Care Provider Unavailable Rocky Hodgson Unavailable [phone] Reason For Referral No Information Plan Of Treatment No Information Insurance Providers Payer Name Payer Address Payer Phone Subscriber Number Group Number Insured Name Patient Relationship to Insured Coverage Start Date Coverage End Date [facility] [address] [place] [phone] [id number] CHERYL AKBAR Self - patient is the insured
== END 2025-04-09 10:22 | disposition home or self-care (01) ==
LOC: HO.HMGCLDS 10:21
PROVIDERS: PCP Internal Medicine; Visit Provider Physician Assistant Medical
DX: Z13.89 Encounter for screening for other disorder (principal)

== ENCOUNTER 2025-04-10 17:00 | Outpatient (REF) | payer OTHER, SELFPAY ==
--- OUTSIDE RECORDS SUMMARY | 2025-04-11 09:39 | XMS_ITS | Patient Health Record ---
Author Organization [facility] Address [address] [place] [address] Care Team Providers Care Stamp Classifier Name Role Phone Cem (RETIRED) Jerad LOVE Primary Care Provider Unavailable Rocky Hodgson Unavailable [phone] Reason For Referral No Information Plan Of Treatment No Information Insurance Providers Payer Name Payer Address Payer Phone Subscriber Number Group Number Insured Name Patient Relationship to Insured Coverage Start Date Coverage End Date [facility] [address] [place] [phone] [id number] CHERYL AKBAR Self - patient is the insured
[2025-04-11 14:29] LABS: Appearance Urine Clear; Glucose Urine UA Negative (Negative); PH 6.0 (5.0-9.0); Specific Gravity - Urine >= 1.030 (1.005-1.025); UMIC TRIGGER UACC YES
[2025-04-11 14:40] LABS: UACC Culture Trigger YES
== END 2025-04-10 17:01 | disposition home or self-care (01) ==
LOC: HO.HMGCLNP 17:00
PROVIDERS: PCP Internal Medicine; Visit Provider Physician Assistant Medical
DX: Z00.00 Encounter for general adult medical examination without abnormal findings (principal); R30.0 Dysuria
CPT/HCPCS: 81001; 87086

== ENCOUNTER 2025-04-13 13:37 | Outpatient (REF) | payer OTHER, SELFPAY ==
--- OUTSIDE RECORDS SUMMARY | 2025-04-13 15:50 | XMS_ITS | Patient Health Record ---
Author Organization [facility] Address [address] [place] [address] Care Team Providers Care Supervisor Feed House Name Role Phone Cem (RETIRED) Jerad LOVE Primary Care Provider Unavailable Rocky Hodgson Unavailable [phone] Reason For Referral No Information Plan Of Treatment No Information Insurance Providers Payer Name Payer Address Payer Phone Subscriber Number Group Number Insured Name Patient Relationship to Insured Coverage Start Date Coverage End Date [facility] [address] [place] [phone] [id number] CHERYL AKBAR Self - patient is the insured
[2025-04-13 16:15] LABS: Hematocrit 39.3 % (37.0-47.0); Hemoglobin 12.9 g/dl (12.0-16.0); Mean Corpuscular HGB Conc 32.8 g/dl (31.0-35.0); Mean Corpuscular Hemoglobin 25.8 pg (27.0-33.0); Mean Corpuscular Volume 78.6 fL (80.0-98.0); NRBC Abs Auto 0.000 X10*3/uL (0.0-0.012); NRBC Pct Auto 0.0 /100WBC (0.0-0.2); Platelet Count 252 X10*3/uL (160-400); Red Blood Count 5.00 X10*6/uL (4.20-5.50); White Blood Count 11.7 X10*3/uL (4.8-10.8)
[2025-04-13 16:40] LABS: Anion Gap 13 (12-20); Blood Urea Nitrogen 11 mg/dL (9-16); Calcium 9.1 mg/dL (8.4-10.2); Carbon Dioxide 26 mmol/L (22-29); Chloride 106 mmol/L (96-108); Estimated Glomerular Filt Rate > 60; Potassium 4.2 mmol/L (3.3-5.1); Sodium 141 mmol/L (135-145)
== END 2025-04-13 13:38 | disposition home or self-care (01) ==
LOC: HO.HMGCLDS 13:37
PROVIDERS: PCP Internal Medicine; Visit Provider Physician Assistant Medical
DX: Z00.00 Encounter for general adult medical examination without abnormal findings (principal)
CPT/HCPCS: 36415; 80048; 85027

== ENCOUNTER 2025-04-17 10:13 | Outpatient (REF) | payer OTHER, SELFPAY ==
--- NOTE | ~2025-04-17 | MM_ITS ---
EXAMINATION: DXA BONE DENSITY AXIAL HISTORY: M81.0 - Age-related osteoporosis without current pathological fracture TECHNIQUE: Aireon Dual energy absorptiometry (DEXA) of the lumbar spine, total left hip, and femoral neck was performed. COMPARISON: There are no prior studies for comparison. FINDINGS: The bone mineral density of the lumbar spine is 1.521 g/cm2, corresponding to a T-score of 2.9, and a Z-score of 3.3. This is indicative of normal bone mineral density. The bone mineral density of the left total hip is 1.172 g/cm2, corresponding to a T-score of 1.3, and a Z-score of 1.7. This is indicative of normal bone mineral density. The bone mineral density of the left femoral neck is 1.208 g/cm2, corresponding to a T-score of 1.2, and a Z-score of 1.9. This is indicative of normal bone mineral density. FRACTURE RISK: The FRAX index suggests a risk of major osteoporotic fracture of 4.6%, and of hip fracture 0.0%. MM/XR DEXA axial skeleton IMPRESSION: Based on bone mineral density, and according to World Health Organization (WHO) criteria, the diagnosis is consistent with normal bone mineral density. Statistically, 68% of repeat scans fall within 1 SD (+/- 0.010 g/cm2 for AP spine L1-L4) and 1 SD (+/- 0.012 g/cm2 for femur total) FRAX is a trademark of the [employer]'s [place] for Metabolic Bone Disease, a World Health Organization (WHO) Collaborating Center. Electronically signed by: Rocky Ayers MD 04/17/2025 11:52 AM EDT
--- OUTSIDE RECORDS SUMMARY | 2025-04-17 11:39 | XMS_ITS | Patient Health Record ---
Author Organization [facility] Address [address] [place] [address] Care Team Providers Care Barmaid Name Role Phone Cem (RETIRED) Jerad LOVE Primary Care Provider Unavailable Rocky Hodgson Unavailable [phone] Reason For Referral No Information Plan Of Treatment No Information Insurance Providers Payer Name Payer Address Payer Phone Subscriber Number Group Number Insured Name Patient Relationship to Insured Coverage Start Date Coverage End Date [facility] [address] [place] [phone] [phone] [id number] CHERYL AKBAR Self - patient is the insured
== END 2025-04-17 10:14 | disposition home or self-care (01) ==
LOC: HO.MAMMO 10:13
PROVIDERS: PCP Physician Assistant Medical; Visit Provider Physician Assistant Medical
DX: M81.0 Age-related osteoporosis without current pathological fracture (principal)
CPT/HCPCS: 77080

== ENCOUNTER → 2025-04-17 10:30 | Outpatient (BNV) | payer OTHER, SELFPAY | PROVIDERS: PCP Physician Assistant Medical; Visit Provider Radiology Diagnostic Radiology | DX: E28.39 Other primary ovarian failure (principal) | CPT/HCPCS: 77080 ==

== ENCOUNTER 2025-04-27 15:40 | Outpatient (REF) | payer OTHER, SELFPAY ==
--- OUTSIDE RECORDS SUMMARY | 2025-04-28 16:45 | XMS_ITS | Patient Health Record ---
Author Organization [facility] Address [address] [place] [address] Care Team Providers Care Children'S Entertainer Name Role Phone Cem (RETIRED) Jerad LOVE Primary Care Provider Unavailable Rocky Hodgson Unavailable [phone] Reason For Referral No Information Plan Of Treatment No Information Insurance Providers Payer Name Payer Address Payer Phone Subscriber Number Group Number Insured Name Patient Relationship to Insured Coverage Start Date Coverage End Date [facility] [address] [place] [phone] [id number] CHERYL AKBAR Self - patient is the insured
== END 2025-04-27 15:41 | disposition home or self-care (01) ==
LOC: HO.HMGCLNP 15:40
PROVIDERS: PCP Physician Assistant Medical; Visit Provider Physician Assistant Medical
DX: R30.0 Dysuria (principal); R39.15 Urgency of urination; N39.0 Urinary tract infection, site not specified
CPT/HCPCS: 87086; 87088; 87186

== ENCOUNTER 2025-04-28 15:40 | Outpatient (REF) | payer OTHER, SELFPAY ==
[2025-04-28 16:46] LABS: Appearance Urine Clear; Glucose Urine UA Negative (Negative); PH 6.0 (5.0-9.0); Specific Gravity - Urine 1.020 (1.005-1.025); UMIC TRIGGER UACC YES
[2025-04-28 17:00] LABS: UACC Culture Trigger YES
--- OUTSIDE RECORDS SUMMARY | 2025-05-05 11:42 | XMS_ITS | Patient Health Record ---
Author Organization [facility] Address [address] [place] [address] Care Team Providers Care Image Assembler Name Role Phone Cem (RETIRED) Jerad LOVE Primary Care Provider Unavailable Rocky Hodgson Unavailable [phone] Reason For Referral No Information Plan Of Treatment No Information Insurance Providers Payer Name Payer Address Payer Phone Subscriber Number Group Number Insured Name Patient Relationship to Insured Coverage Start Date Coverage End Date [facility] [address] [place] [phone] [id number] CHERYL AKBAR Self - patient is the insured
== END 2025-04-28 15:41 | disposition home or self-care (01) ==
LOC: HO.HMGCLNP 15:40
PROVIDERS: Visit Provider Physician Assistant Medical
DX: R30.0 Dysuria (principal); R39.15 Urgency of urination; N39.0 Urinary tract infection, site not specified
CPT/HCPCS: 81001; 81003; 87086; 87088; 87186

== ENCOUNTER 2025-05-07 11:07 | Outpatient (REF) | payer OTHER, SELFPAY ==
--- OUTSIDE RECORDS SUMMARY | 2025-05-07 13:02 | XMS_ITS | Patient Health Record ---
Author Organization [facility] Address [address] [place] [address] Care Team Providers Care Prize Coordinator Name Role Phone Cem (RETIRED) Jerad LOVE Primary Care Provider Unavailable Rocky Hodgson Unavailable [phone] Reason For Referral No Information Plan Of Treatment No Information Insurance Providers Payer Name Payer Address Payer Phone Subscriber Number Group Number Insured Name Patient Relationship to Insured Coverage Start Date Coverage End Date [facility] [address] [place] [phone] [id number] CHERYL AKBAR Self - patient is the insured
== END 2025-05-07 11:08 | disposition home or self-care (01) ==
LOC: HO.HMGCLDS 11:07
PROVIDERS: PCP Physician Assistant Medical; Visit Provider Physician Assistant Medical
DX: Z13.89 Encounter for screening for other disorder (principal)

== ENCOUNTER 2025-05-07 14:30 | Outpatient (REF) | payer OTHER, SELFPAY ==
--- OUTSIDE RECORDS SUMMARY | 2025-05-08 07:54 | XMS_ITS | Patient Health Record ---
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
[2025-05-08 10:16] LABS: Appearance Urine Clear; Glucose Urine UA Negative (Negative); PH 5.5 (5.0-9.0); Specific Gravity - Urine 1.020 (1.005-1.025)
== END 2025-05-07 14:31 | disposition home or self-care (01) ==
LOC: HO.HMGCLNP 14:30
PROVIDERS: PCP Physician Assistant Medical; Visit Provider Physician Assistant Medical
DX: Z13.89 Encounter for screening for other disorder (principal)

== ENCOUNTER 2025-05-21 11:15 | Outpatient (REF) | payer OTHER, SELFPAY ==
[2025-05-21 13:16] LABS: Appearance Urine Clear; Glucose Urine UA Negative (Negative); PH 6.0 (5.0-9.0); Specific Gravity - Urine 1.015 (1.005-1.025); UMIC TRIGGER UACC YES
[2025-05-21 14:33] LABS: Microalbum/Creatinine Ratio Ur 9.0 ug/mg cr (<30)
== END 2025-05-21 11:16 | disposition home or self-care (01) ==
LOC: HO.HMGCLDS 11:15
PROVIDERS: PCP Internal Medicine; Visit Provider Physician Assistant Medical
DX: Z00.00 Encounter for general adult medical examination without abnormal findings (principal); E11.9 Type 2 diabetes mellitus without complications
CPT/HCPCS: 81001; 81003; 82043; 82570

== ENCOUNTER 2025-05-25 13:55 | Outpatient (AMB) | payer OTHER, SELFPAY ==
[2025-05-25 13:56] VITALS: BP 150/70; PULSE 94; TEMP 36.2; O2SAT 94; BMI 48.2
--- NOTE | 2025-05-25 13:56 | A.OFFPC_ITS ---
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 Required: No Accompanied by: Self / Same As Patient Allergies latex (LATEX) Allergy (Intermediate, Verified 05/25/25 16:47) RASH sulfamethoxazole (From Bactrim) Allergy (Mild, Verified 05/25/25 16:47) Itching trimethoprim (From Bactrim) Allergy (Mild, Verified 05/25/25 16:47) Itching dust Allergy (Intermediate, Uncoded 05/25/25 16:47) Sneezing pollen Allergy (Intermediate, Uncoded 05/25/25 16:47) Sneezing Medication List - Last Reconciled 05/25/25 by Shaila Ashford PA-C atorvastatin 20 mg PO DAILY blood pressure kit-extra large Monitor blood pressure daily cholecalciferol (vitamin D3) 50 mcg PO DAILY cod liver oil 1 cap PO DAILY estradiol 0.01%(0.1mg/gram) vaginal fexofenadine (Rachael Allergy) 180 mg PO DAILY flash glucose sensor (FreeStyle Lynsey 14 Day Sensor kit) As directed fluticasone propionate 50 mcg/actuation 1 spray intranasal BID fosfomycin tromethamine 1 packet PO Q OTHER DAY 3 doses insulin glargine (Lantus Solostar U-100 Insulin) 65 units subcut BID insulin lispro (Humalog KwikPen (U-100) Insulin) subcut lorazepam 0.5 mg PO BID PRN metformin ER 500 mg PO DAILY methenamine hippurate 1 g PO DAILY 90 days mirabegron ER (Myrbetriq) 25 mg PO DAILY 30 days naproxen 500 mg PO BID pen needle, diabetic (BD Anaya 2nd Gen Pen Needle) 5 times a day sertraline 100 mg PO DAILY sertraline 50 mg PO DAILY tirzepatide 10 mg (0.5 mL) subcut QWEEK triamcinolone acetonide 0.1% appl topical BID Tobacco use date assessed: 05/25/25 Fall risk assessment: No Falls in past year Last assessed Fall Risk: 05/25/25 Dental Screening Dental Screen Date: 05/25/25 Did you have a dental visit in the last 12 months?: Yes Did you have a dental problem in the last 6 months where you did not have access to dental care?: No Was dental information given to patient?: Patient has dentist HPI Follow up UTI HPI Details The patient is a 65-year-old female presenting with recurrent urinary tract infections and type 2 diabetes mellitus. The patient has been experiencing recurrent urinary tract infections for over a year, with the most recent episode occurring in April. She reports persistent symptoms including urgency and lower back pain, despite multiple courses of antibiotics, including fulsofulsamide. The patient has consulted with a urologist and a urogynecologist, and has undergone treatments such as Botox injections, but continues to experience symptoms. The patient also reports urinary incontinence, which significantly impacts her quality of life, requiring the use of pads and affecting her daily activities. She has expressed frustration with the lack of improvement and is seeking further evaluation to determine the underlying cause, suspecting a structural issue. Regarding her type 2 diabetes mellitus, the patient has been managing her condition with insulin and other medications. Her last recorded HbA1c was 7.4%, and she reports fluctuations in her blood glucose levels, which she attributes to her dietary habits and medication adherence. She has been experiencing challenges with weight management, despite being on medications like Mounjaro, and has not observed significant weight loss. Social History - Functional status: The patient uses a walker for mobility due to urinary incontinence. - Exercise: Limited physical activity du e to health conditions, but maintains daily chores. - Weight management: Challenges with cornelio ght loss despite medication. [facility] Medical History Preventative health care Low magnesium level Dysuria Osteoarthritis Morbid obesity with BMI of 45.0-49.9, adult Hypertension Hyperlipidemia Type 2 diabetes mellitus with hemoglobin A1c goal of less than 7.0% Anxiety and depression Urinary urgency Elevated cholesterol Morbid obesity Breast calcification, left Arthritis Anxiety Tendonitis Diabetes type 2, uncontrolled Surgical History History of cystoscopy Hx of left breast biopsy Hx of right breast biopsy Hx of colonoscopy Hx of section H/O cervical polypectomy Family History Mother Kidney carcinoma Father Glaucoma High blood pressure Alzheimer's dementia Social History Household Members Other:: son Housing: House Alcohol intake: current Alcohol intake frequency: holidays/special occasions only Patient Tobacco Use Status: Former Tobacco user service: No 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: retired Sexual orientation: Straight/Heterosexual Gender identity: Female Cognitive needs: Yes (cane and walker sometimes) Hearing needs: No Vision needs: Yes (rx glasses/ cheateres) Female Reproductive History Menstrual Age of Menarche: 10 Questionnaire PHQ-9 Over the last 2 weeks, how often have you been bothered by any of the following problems? 1. Little interest or pleasure in doing things: more than half the days 2. Feeling down, depressed, or hopeless: nearly every day 3. Trouble falling or staying asleep, or sleeping too much: not at all 4. Feeling tired or having little energy: nearly every day 5. Poor appetite or overeating: not at all 6. Feeling bad about yourself - or that you are a failure or have let yourself or your family down: not at all 7. Trouble concentrating on things, such as reading the newspaper or watching television: not at all 8. Moving or speaking so slowly that other people could have noticed. Or the opposite - being so fidgety or restless that you have been moving around a lot more than usual: not at all 9. Thoughts that you would be better off or of hurting yourself in some way : not at all Total score: 8 Depression Screening Interpretation: Positive Depression Screening Follow-up: Existing condition, In treatment and Follow-up Visit Requested Depression Screening Done: Yes 86217 - PHQ-9 Billing: Yes Source: Developed by Drs. Rocky Hester, Tawnya Obregon, Ariel Sorensen and colleagues, with an educational makayla from [employer]. Thrive Questionnaire Date Thrive assessed: 05/25/25 I am a: Patient What is your living situation today?: I have a steady place to live Within the past 12 months, did the food you bought not last and you didn't have the money to get more?: Never true Within the past 12 months, did you worry whether your food would run out before you got money to buy more?: Never true Do you have trouble paying for medicines?: No Do you have trouble getting transportation to medical appointments?: No Do you have trouble paying your heating and electricity bill?: No Do you have trouble taking care of your child, family member or friend?: No Do you have trouble with day-to-day activities such as bathing, preparing meals, shopping, managing finances, etc.?: No Are you currently unemployed and looking for a job?: No Are you interested in more education?: No Please select the resources that you would like help with: None Currently or been in a relationship where the following occur: No concerns reported THRIVE Score: 0 AUDIT C Alcohol Use Questionnaire (AUDIT-C) 1. How often do you have a drink containing alcohol?: Monthly or less 2. How many drinks containing alcohol do you have on a typical day when you are drinking?: 1 or 2 3. How often do you have six or more drinks on one occasion?: Never Total Score: 1 Score Reviewed/Action Taken: No KLEVER-7 AMB Questionnaire KLEVER-7 Date KLEVER - 7 assessed: 05/25/25 Feeling nervous, anxious, or on edge: 2 = More than half the days Not being able to stop or control worryin = Nearly every day Worrying too much about different things: 3 = Nearly every day Trouble relaxin = Nearly every day Being so restless that it is hard to sit still: 0 = Not at all Becoming easily annoyed or irritable: 3 = Nearly every day Feeling afraid as if something awful might happen: 0 = Not at all Total KLEVER-7 score (0-4 normal; 5-9 mild; 10-14 moderate; 15-21 severe): 14 Source: Developed by Drs. Rocky Hester, Tawnya Obregon, Ariel Sorensen and colleagues, with an educational makayla from [employer]. KLEVER-7 Assessment Billing KLEVER-7 Assessment Tool: KLEVER-7 Assessment 69560 Review of Systems Const Details: - Genitourinary: Reports urinary urgency, incontinence, and recurrent urinary tract infections. - Musculoskeletal: Reports lower back pain. - Endocrine: Reports fluctuations in blood glucose levels. - General: Reports mood changes, sweating, and chills. All systems reviewed & are unremarkable except as noted in HPI and below Physical exam (Primary Care) Vital Signs: Last Vital Signs Temp 97.2 F 05/25/25 13:56 Pulse 94 05/25/25 13:56 BP 150/70 H 05/25/25 13:56 Pulse Ox 94 05/25/25 13:56 Oxygen Delivery Method Room Air 05/25/25 13:56 BMI result Body Mass Index 48.2 Tobacco/Smoking Status: Tobacco use Status Tobacco use date assessed 05/25/25 05/25/25 13:58 Patient Tobacco Use Status Former Tobacco user 05/25/25 13:58 Tobacco use type 05/20/25 13:03 PHQ-9: PHQ-9 Score PHQ-9: Total score 8 05/25/25 14:53 Depression Screening Interpretation: Positive Depression Screening Follow-up: Existing condition, In treatment and Follow-up Visit Requested Thrive Assessment: Date of Thrive Assessment Date Thrive assessed 05/25/25 05/25/25 13:58 Currently or been in a relationship where the following occur: No concerns reported Const Other: Appearance: Alert. Oriented X3. No acute distress. Head: Normal external exam. Normocephalic. Atraumatic. Eyes: Pupils are equal, round, and reactive to light. Extraocular movements intact. Conjunctiva and sclera normal. Eyelids normal. Throat: Pharynx normal. Uvula midline. Moist mucous membranes. Neck: Normal inspection. Neck supple. Full range of motion. Cardiovascular: Normal heart rate and rhythm. Respiratory: No respiratory distress. Painless inspiration. Back: Full range of motion noted. Reports lower back pain. Skin: Skin warm and dry. Normal skin color. Normal skin turgor. No rashes/lesions/lacerations noted. Extremities: Extremities exhibit normal range of motion. Office Procedures Flu Questionnaire Does the patient have a severe egg allergy?: No Does the patient have severe life threatening allergies?: No Does the patient have a fever or illness today?: No Has the patient ever had Guillain-P[place] Syndrome?: No Has the patient ever had any past reaction to a flu shot?: No Immunizations Fluarix [id number] (PF) 45 mcg (15 mcg x 3)/0.5 mL IM syringe Performing Provider: Shaila Ashford PA-C Performing Location: [facility] Administered by: Kim Cooley CMA on 05/25/25 14:53 Dose Route Admin Location Dispensed Lot Number Expiration Date NDC Satellite Instruction Facilitator 0.5 mL IM Left Deltoid 0.5 mL [id number] 02/02/26 [id number] [employer] VIS Given Date VIS Provided VIS Publication Date 05/25/25 Single Vaccine 24 Eligibility Eligibility Date Funding Source Not [facility] Eligible 05/25/25 Private Results Reviewed Results Reviewed: - Labs: Urine culture on 05/08 was negative; urine on 05/21 showed trace leukocytes. - Labs: HbA1c was 7.4% as of the last check. Coding Level of Care Code Est Pt Level 4 (44856) Complex EM visit Add On G2211 Diagnoses Recurrent UTI N39.0 Urine incontinence R32 Type 2 diabetes mellitus with hemoglobin A1c goal of less than 7.0% E11.9 Additional Codes KLEVER-7 Assessment Billing - KLEVER-7 Assessment Tool: KLEVER-7 Assessment 18133 ([id number]) PHQ-9 - 44763 - PHQ-9 Billing: Yes ([id number]) Time Spent (min) 50 Assessment & Plan Assessment & Plan (1) Recurrent UTI: Code(s): N39.0 - Urinary tract infection, site not specified Category: Medical Plan: The patient will continue to monitor symptoms and provide a urine sample for further analysis to determine the presence of infection. Referral to a specialist at [facility] for further evaluation of recurrent infections has been initiated. (2) Urine incontinence: Code(s): R32 - Unspecified urinary incontinence Category: Medical Plan: The patient is advised to continue using pads for incontinence management and to follow up with a urogynecologist for further evaluation. Consideration of structural evaluation and potential surgical interventions if deemed necessary by the specialist. (3) Type 2 diabetes mellitus with hemoglobin A1c goal of less than 7.0%: Code(s): E11.9 - Type 2 diabetes mellitus without complications Category: Medical Plan: The patient will continue current diabetes management with insulin and Mounjaro, with an increase in dosage to address weight management issues. Regular monitoring of blood glucose levels and HbA1c is recommended, with a follow-up appointment scheduled to reassess management strategies. Plan Plan Patient was informed and verbally consented to the use of an ambient scribe for clinic note documentation during this visit. 1. Urinary Tract Infection The patient will continue to monitor symptoms and provide a urine sample for further analysis to determine the presence of infection. Referral to a specialist at [facility] for further evaluation of recurrent infections has been initiated. 2. Urinary Incontinence The patient is advised to continue using pads for incontinence management and to follow up with a urogynecologist for further evaluation. Consideration of structural evaluation and potential surgical interventions if deemed necessary by the specialist. 3. Type 2 Diabetes Mellitus The patient will continue current diabetes management with insulin and Mounjaro, with an increase in dosage to address weight management issues. Regular monitoring of blood glucose levels and HbA1c is recommended, with a follow-up appointment scheduled to reassess management strategies. During the visit, we discussed the ongoing management of the patient's recurrent urinary tract infections and the need for further evaluation by a specialist to determine the underlying cause. We also reviewed the patient's diabetes management plan, including the adjustment of Mounjaro dosage to aid in weight management and the importance of regular monitoring of blood glucose levels. Orders: Orders Influenza [id number] Immunization Today Z23 - Encounter for immunization UA CC w/rflx Micro + Cult Today Z00.00 - Encounter for general adult medical examination without abnormal findings Urine Culture Today N39.0 - Urinary tract infection, site not specified Referrals Urology Referral N31.8 - Other neuromuscular dysfunction of bladder, N32.81 - Overactive bladder, N39.0 - Urinary tract infection, site not specified, N39.41 - Urge incontinence, N95.2 - Postmenopausal atrophic vaginitis, R32 - Unspecified urinary incontinence Medications: Changed From Mounjaro (tirzepatide) 7.5 mg (0.5 mL) subcut QWEEK 2 mL 0RF NS E11.9 - Type 2 diabetes mellitus without complications To tirzepatide 10 mg (0.5 mL) subcut QWEEK 2 mL 0RF E11.9 - Type 2 diabetes mellitus without complications Patient Instructions: - Continue using pads for urinary incontinence management. - Provide a urine sample for analysis to check for infection. - Follow up with a urogynecologist for further evaluation of urinary issues. - Continue current diabetes medications and monitor blood glucose levels regularly. - Schedule a follow-up appointment to reassess diabetes management.
== END 2025-05-25 15:05 | disposition home or self-care (01) ==
LOC: HO.HMCSH 13:55
PROVIDERS: PCP Internal Medicine; Visit Provider Physician Assistant Medical
DX: N39.0 Urinary tract infection, site not specified (principal); R32 Unspecified urinary incontinence; E11.9 Type 2 diabetes mellitus without complications; Z23 Encounter for immunization

== ENCOUNTER 2025-05-25 13:55 | Outpatient (REF) | payer OTHER, SELFPAY ==
--- OUTSIDE RECORDS SUMMARY | 2025-05-25 19:41 | XMS_ITS | Patient Health Record ---
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
== END 2025-05-25 13:56 | disposition home or self-care (01) ==
LOC: HO.LAB 13:55
PROVIDERS: PCP Internal Medicine; Visit Provider Physician Assistant Medical
DX: Z23 Encounter for immunization (principal); N39.0 Urinary tract infection, site not specified; R32 Unspecified urinary incontinence; E11.9 Type 2 diabetes mellitus without complications; Z79.4 Long term (current) use of insulin; Z79.84 Long term (current) use of oral hypoglycemic drugs; Z79.1 Long term (current) use of non-steroidal anti-inflammatories (NSAID); Z79.899 Other long term (current) drug therapy
CPT/HCPCS: 87086; 87088; 87186; 90471; 90656; 96127

== ENCOUNTER 2025-06-05 13:56 | Outpatient (AMB) | payer MEDICARE, OTHER, SELFPAY ==
--- NOTE | 2025-06-05 14:04 | MHC.OFFVIS ---
Intake Visit Reasons: urinary incontinence Intake Note: Patient is present for urinary incontinence Urology Med:Estradiol, Mybetriq Antibiotic Allergy: None Blood Thinner: None PVR:108ml Wrap Knitting Machine Operator Required: No Accompanied by: Self / Same As Patient Allergies latex (LATEX) Allergy (Intermediate, Verified 07/18/25 19:07) RASH sulfamethoxazole (From Bactrim) Allergy (Mild, Verified 07/18/25 19:07) Itching trimethoprim (From Bactrim) Allergy (Mild, Verified 07/18/25 19:07) Itching dust Allergy (Intermediate, Uncoded 05/25/25 16:47) Sneezing pollen Allergy (Intermediate, Uncoded 05/25/25 16:47) Sneezing HPI Comments Details: 06/05/2025--Maranda is a 65-year-old female who is followed for neurogenic bladder with LUTS urgency and recurrent UTIs with complaints of dysuria. Diabetes-Cmorbidity. The patient is on Cipro for symptomatic UTI. Discussed reevaluate urinary tract. CTUrogram, repeat cysto, bladder biopsies. 02/20/24--Pt is followed for neurogenic bladder, LUTS urgency, urge incontinence. The patient was evaluated by Infectious disease and has bacteuria colonization. Has failed multiple PO anticholinergics and has had improvement with Botox 200 units. needs botox q 3 month ceftin and fosfosmin sent. 11/22/2023--Maranda is here for follow-up. Comorbidity diabetes, obesity. She was seen by infectious disease due to persistent bacteriuria. In review of the infectious disease note, recommendations include that the patient is resistant to Bactrim and to discontinue Bactrim prophylaxis. She discussed with the patient that she has colonization and does not recommend treatment for nitrite positive urine unless symptoms such as fever, gross hematuria. The patient states that her urinary symptoms have improved but she still has had occasional urine leakage accidents. She states her insurance recently approved the Myrbetriq 25 mg. She states she has been trying some pelvic floor exercises that she found on YouTube. Plan discussed continue Botox injection 200 units, repeat in February, Myrbetriq 25 mg to take 1 in the afternoon, continue Hiprex 1 g daily, continue Estrace cream. 10/09/23--Maranda is a 63-year-old female who presents today to the office for a follow-up. She is followed today for OAB and recurrent UTI's. The patient previously had botox 100 units in April with minimal improvement in urgency, she was still using Myrbetriq 50 mg daily. She had repeat botox 200 units Jen2023. She has had irritative bladder symptoms and recurrent UTI's. I have discussed referral to ID. Renal ultrasound results from 03/30/2023 revealed no calculi or focal parenchymal lesions. No hydronephrosis. 04/23/2023: Botox injection 100 units in the office. [facility] Medical History Preventative health care Low magnesium level Dysuria Osteoarthritis Morbid obesity with BMI of 45.0-49.9, adult Hypertension Hyperlipidemia Type 2 diabetes mellitus with hemoglobin A1c goal of less than 7.0% Anxiety and depression Urinary urgency Elevated cholesterol Morbid obesity Breast calcification, left Arthritis Anxiety Tendonitis Diabetes type 2, uncontrolled Surgical History History of cystoscopy Hx of left breast biopsy Hx of right breast biopsy Hx of colonoscopy Hx of section H/O cervical polypectomy Family History Mother Kidney carcinoma Father Glaucoma High blood pressure Alzheimer's dementia Social History Household Members Other:: son Housing: House Alcohol intake: current Alcohol intake frequency: holidays/special occasions only Patient Tobacco Use Status: Former Tobacco user Advance Directives: No Advance Directives Information Provided: No Do you have a plan to hurt others: No Plan service: No 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: retired Sexual orientation: Straight/Heterosexual Gender identity: Female Cognitive needs: Yes (cane and walker sometimes) Hearing needs: No Vision needs: Yes (rx glasses/ cheateres) Female Reproductive History Menstrual Age of Menarche: 10 Review of Systems Const All systems reviewed & are unremarkable except as noted in HPI and below Reports no additional complaints Eyes Reports no additional complaints ENT Reports no additional complaints Card Reports no additional complaints Resp Reports no additional complaints GI Reports no additional complaints Reports as per HPI Musc Reports no additional complaints Skin/Breast Reports system reviewed and no additional complaints, except as documented Neuro Reports no additional complaints Psych Reports no additional complaints Endo Reports no additional complaints Jose/Lymph Reports no additional complaints Aller/Immun Reports no additional complaints Office Procedures Post Void Residual Post Residual Void Post Void Residual (PVR): [id number] Void Residual by ultrasound Results Reviewed Results Reviewed: Collected: 05/25/25 Status: MAURIZIO Blancas#: [id number] Received: 05/25/25 Source: [facility] Sp Desc: Subm Dr: Shaila Ashford PA-C Ordered: Urine Culture Procedure Result Verified Urine Culture Final 05/28/25 Organism 1 Klebsiella oxytoca Quant 50,000 to 100,000 cfu/mL Organism 2 Escherichia coli Quant 50,000 to 100,000 cfu/mL Kleb oxyto E coli M.I.C. RX M.I.C. RX --------- --- --------- --- Ampicillin >=32 R >=32 R Cefazolin >=32 R Cefazolin (Urine) 8 S Cefepime <=0.12 S 0.5 S Ceftriaxone <=0.25 S <=0.25 S Ciprofloxacin <=0.06 S >=4 R Gentamicin <=1 S >=16 R Nitrofurantoin <=16 S 64 I Trimethoprim/Sulfamethoxazole <=20 S >=320 R Collected: 04/28/25 Status: MAURIZIO Solerq#: [id number] Received: 04/28/25 Source: [facility] Sp Desc: Clean Cat Subm Dr: Shaila Ashford PA-C Ordered: Urine Culture Procedure Result Verified Urine Culture Final 04/30/25 Organism 1 Escherichia coli Quant 10,000 to 50,000 cfu/mL E coli M.I.C. RX --------- --- Ampicillin >=32 R Cefazolin (Urine) 8 S Cefepime 0.5 S Ceftriaxone <=0.25 S Ciprofloxacin >=4 R Gentamicin >=16 R Nitrofurantoin 64 I Trimethoprim/Sulfamethoxazole >=320 R Date of Service: 03/30/23 EXAMINATION: US RETROPERITONEAL LIMITED (RENAL ONLY) CLINICAL INFORMATION: Urinary tract infection.. COMPARISON: None available. TECHNIQUE: Bilateral renal ultrasound performed. FINDINGS: RIGHT KIDNEY: 13.3 x 4.8 x 6.2 cm (SAG x AP x TRV). The kidney is normal in size, contour, and echogenicity. Renal cortical thickness is normal. No calculi or focal parenchymal lesions. No hydronephrosis. LEFT KIDNEY: 12.8 x 6.4 x 5.7 cm (SAG x AP x TRV). The kidney is normal in size, contour, and echogenicity. Renal cortical thickness is normal. No calculi or focal parenchymal lesions. No hydronephrosis. IMPRESSION: No significant abnormality identified.. Assessment & Plan Assessment & Plan (1) Recurrent UTI: Code(s): N39.0 - Urinary tract infection, site not specified Category: Medical (2) Bacteriuria with pyuria: Code(s): R82.71 - Bacteriuria; R82.81 - Pyuria Category: Medical (3) Hematuria: Code(s): R31.9 - Hematuria, unspecified Category: Medical (4) Dysuria: Code(s): R30.0 - Dysuria Category: Medical (5) Diabetes: Code(s): E11.9 - Type 2 diabetes mellitus without complications Category: Medical Plan Discussed reevaluate urinary tract. CT Urogram, repeat cysto, bladder biopsies. Orders: Orders CT urogram 06/05/25 N39.0 - Urinary tract infection, site not specified, R82.71 - Bacteriuria, R82.81 - Pyuria AMB Post Void Residual by ultrasound 06/05/25 N32.81 - Overactive bladder, R82.71 - Bacteriuria, R82.81 - Pyuria, N39.0 - Urinary tract infection, site not specified, N31.8 - Other neuromuscular dysfunction of bladder, R39.15 - Urgency of urination Patient Instructions: The patient had an opportunity to ask questions regarding treatment plan. The patient expressed understanding and agreement with the above treatment plan. The patient is aware they should contact our office by phone for worsening of their current condition or the appearance of new symptoms. Compliance is encouraged with any medications and followup testing that is ordered. It is a privilege to be allowed the opportunity to participate in the urologic care of your patient. If you have any questions or concerns regarding treatment for the above conditions please do not hesitate to contact me. The office telephone contact is [phone]. This note is constructed in part using voice recognition software. While every effort has been made to ensure accuracy automatic clipper errors may have been included. Yours sincerely, Noel Orlando MD Coding Level of Care Code Est Pt Level 4 (28480) Diagnoses Recurrent UTI N39.0 Bacteriuria with pyuria R82.71; R82.81 Hematuria R31.9 Dysuria R30.0 Diabetes E11.9 CPT Codes Post Residual Void - PVR CPT Code: 63309-Ihpx Void Residual by ultrasound ([id number])
--- OUTSIDE RECORDS SUMMARY | 2025-06-05 14:49 | XMS_ITS | Patient Health Record ---
Author Organization [facility] Address [address] [place] [address] Care Team Providers Care Technical Support Associate Name Role Phone Cem (RETIRED) Jerad LOVE Primary Care Provider Unavailable Rocky Hodgson Unavailable [phone] Reason For Referral No Information Plan Of Treatment No Information Insurance Providers Payer Name Payer Address Payer Phone Subscriber Number Group Number Insured Name Patient Relationship to Insured Coverage Start Date Coverage End Date [facility] [address] [place] [phone] [id number] CHERYL AKBAR Self - patient is the insured
== END 2025-06-05 14:49 | disposition home or self-care (01) ==
PROVIDERS: PCP Physician Assistant Medical; Visit Provider Urology
DX: N39.0 Urinary tract infection, site not specified (principal); R82.71 Bacteriuria; R82.81 Pyuria; R31.9 Hematuria, unspecified; R30.0 Dysuria; E11.9 Type 2 diabetes mellitus without complications
CPT/HCPCS: 99214

== ENCOUNTER → 2025-06-05 13:56 | Outpatient (BNVA) | payer OTHER, SELFPAY | PROVIDERS: PCP Physician Assistant Medical; Visit Provider Urology | DX: R82.71 Bacteriuria (principal); R39.15 Urgency of urination; R82.81 Pyuria; N13.8 Other obstructive and reflux uropathy; N32.81 Overactive bladder | CPT/HCPCS: 51798 ==

== ENCOUNTER 2025-06-23 16:15 | Outpatient (REF) | payer MEDICARE, OTHER, SELFPAY ==
--- OUTSIDE RECORDS SUMMARY | 2025-06-21 23:59 | XMS_ITS | Continuity of Care Document ---
[facility] Organization [facility] Address [address] [place] [address], [address] [place] [address]- Care Team Providers Care Steam Cleaning Machine Operator Name Role Phone Eduardo Carrillo MD [id number] Date[facility]s): [facility]27[facility] [address], [address]th [place] [address]- Attending Physician: Kaylyn Juárez DO Admitting Physician: Kaylyn Juárez DO Referring Physician: Eduardo Carrillo MD Encounter Type: Pre-OutPatient One Time Allergies, Adverse Reactions, Alerts Substance Criticality Severity Reaction Reaction Severity Status Latex Active Immunizations Given and Recorded Vaccine Date Status Refusal Reason SARS-CoV-2 (COVID-19) mRNA BNT-162b2 vac 11/18/20 Given SARS-CoV-2 (COVID-19) mRNA BNT-162b2 vac 10/28/20 Given Medications Rachael By Mouth, 0 Refills, Maintenance, 11/13/23 3:15:00 PM EDT, Partial fill upon patient request if the prescription is for a schedule II opioid drug. Start Date: 11/13/23 Status: Ordered Medication Dispense Status: Completed Total Allowed Fills: 1 Fills Dispensed: 0 atorvastatin 10 mg oral tablet 1 tablet = 10 mg, By Mouth, Daily, 0 Refills, Maintenance, 11/13/23 3:15:00 PM EDT, Partial fill uponpatient request if the prescription is for a schedule II opioid drug. Start Date: 11/13/23 Status: Ordered Medication Dispense Status: Completed Total Allowed Fills: 1 Fills Dispensed: 0 Azo Azo, 0 Refills, Maintenance, 02/27/25 8:52:00 AM EDT Start Date: 02/27/25 Status: Ordered Medication Dispense Status: Completed Total Allowed Fills: 1 Fills Dispensed: 0 BD UF MINI PEN NEEDLE [id number] BD UF MINI PEN NEEDLE [id number], See Instructions, # 360 Unknown, 1 Refills, Maintenance, USE DIRECTED FOR TYPE 2 DIABETES MELLITUS 4 TIMES A DAY, 02/10/25 10:36:00 PM EDT, 170.1, cm, 01/12/25 10:50:00 EDT, Height Start Date: 02/10/25 Status: Ordered Medication Dispense Status: Completed Quantity: 360.0 Unit: Unknown Total Allowed Fills: 1 Fills Dispensed: 0 Cod Liver Oil By Mouth, Daily, 0 Refills, Maintenance, 02/27/25 8:53:00 AM EDT, Partial fill upon patient request if the prescription is for a schedule II opioid drug. Start Date: 02/27/25 Status: Ordered Medication Dispense Status: Completed Total Allowed Fills: 1 Fills Dispensed: 0 Curcumin 95 = 500 mg, By Mouth, Daily, 0 Refills, Maintenance, 02/27/25 8:52:00 AM EDT, Partial fill upon patient request if the prescription is for a schedule II opioid drug. Start Date: 02/27/25 Status: Ordered Medication Dispense Status: Completed Total Allowed Fills: 1 Fills Dispensed: 0 D-Mannose D-Mannose, 0 Refills, Maintenance, 02/27/25 8:52:00 AM EDT Start Date: 02/27/25 Status: Ordered Medication Dispense Status: Completed Total Allowed Fills: 1 Fills Dispensed: 0 DEXCOM G7 Sensor DEXCOM G7 Sensor, See Instructions, # 3 each, Refills 11, Tot. Refills 11, Maintenance, Use to continuously monitor blood lgucose levels E10.9 1 sensor every 10 days, 3 sensors per month, 07/18/24 8:56:00 AM EST, Supply, 170.1, cm, 07/18/24 8:23:00 EST, Height Start Date: 07/18/24 Status: Ordered Medication Dispense Status: Completed Quantity: 3.0 Unit: each Total Allowed Fills: 12 Fills Dispensed: 0 estradiol 0.1 mg/g vaginal cream = 1 Gm, Vaginally, Daily, Use 1 GM vaginally for 2 wks at night, then twice weekly, # 42.5 Gm, 3 Refills, Maintenance, 03/02/25 4:30:00 PM EDT, Cream, [id number], Partial fill upon patient request if the prescription is for a schedule II opioid drug., 170.1, cm, 01/12/25 10:50:00 EDT, Height Start Date: 03/02/25 Status: Ordered Medication Dispense Status: Completed Quantity: 42.5 Unit: g Total Allowed Fills: 4 Fills Dispensed: 0 Flonase = 50 mcg, Daily, 0 Refills, Maintenance, 11/13/23 3:15:00 PM EDT, Partial fill upon patient request if the prescription is for a schedule II opioid drug. Start Date: 11/13/23 Status: Ordered Medication Dispense Status: Completed Total Allowed Fills: 1 Fills Dispensed: 0 Freestyle Lynsey Monitor See Instructions, # 1 each, Refills 0, Tot. Refills 0, Maintenance, use as directed for Type 2 Diabetes Mellitus Use with Freestyle lynsey 3 sensors, 04/29/24 2:08:00 PM EDT, Freestyle lynsey 3 reader, Supply, 170.1, cm, 11/13/23 15:03:00 EDT, Height Start Date: 04/29/24 Stop Date: 05/29/24 Status: Ordered Medication Dispense Status: Completed Quantity: 1.0 Unit: each Total Allowed Fills: 1 Fills Dispensed: 0 Britni 0 Refills, Maintenance, 02/27/25 8:52:00 AM EDT, Partial fill upon patient request if the prescription is for a schedule II opioid drug. Start Date: 02/27/25 Status: Ordered Medication Dispense Status: Completed Total Allowed Fills: 1 Fills Dispensed: 0 Gvoke HypoPen 1 mg/0.2 mL subcutaneous solution = 1 mg, Subcutaneous Infusion, Once, To be use for hypoglycemic emergency by family member or accompanying person, if blood glucoses less than 60 and unconscious. Please call 911 after use glucagon pen., # 1 each, 0 Refills, Soft Stop, 07/18/24 8:54:00 AM [facility], [id number], Partial fill upon patient request if the prescription is for a schedule II opioid drug., 170.1, cm, 07/18/24 8:23:00 EST, Height Start Date: 07/18/24 Status: Ordered Medication Dispense Status: Completed Quantity: 1.0 Unit: each Total Allowed Fills: 1 Fills Dispensed: 0 Humalog Kwik Pen 100 units/mL subcutaneous injection See Instructions, Sliding Scale Comments >> 100 - 149 12 units Call if less than 70 150 - 01171 units 200 - 249 16 units 250 - 299 18 units 300 - 349 20 units 350 - 399 22 units Call if greater than 400 Max daily dose 65 units, # 30 mL, 5 Refills, Maintenance, 01/12/25 12:04:00 PM EDT, Solution, [id number], Partial fill upon patient request if the prescription is for a schedule II opi oid drug., 170.1, cm, 01/12/25 10:50:00 EDT, Height Start Date: 01/12/25 Status: Ordered Medication Dispense Status: Completed Quantity: 30.0 Unit: mL Total Allowed Fills: 6 Fills Dispensed: 0 Lantus Solostar Pen 100 units/mL subcutaneous solution See Instructions, Take 70 units, twice daily via Subcutaneous Injection. E11.9, # 45 mL, 6 Refills,Maintenance, 01/12/25 11:51:00 AM EDT, Solution, [id number], Partial fill upon patient request if the prescription is for a schedule II opioid drug., 170.1, cm, 01/12/25 10:50:00 EDT, Height Start Date: 01/12/25 Status: Ordered Medication Dispense Status: Completed Quantity: 45.0 Unit: mL Total Allowed Fills: 7 Fills Dispensed: 0 Lorazepam 0 Refills, Maintenance, 11/13/23 3:16:00 PM EDT, Partial fill upon patient request if the prescription is for a schedule II opioid drug. Start Date: 11/13/23 Status: Ordered Medication Dispense Status: Completed Total Allowed Fills: 1 Fills Dispensed: 0 metFORMIN 500 mg oral tablet, extended release 1 tablet = 500 mg, By Mouth, Daily, # 30 tablet, 11 Refills, Maintenance, 07/18/24 8:59:00 AM EST, ER Tablet, [id number], Partial fill upon patient request if the prescription is fora schedule II opioid drug., 170.1, cm, 07/18/24 8:23:00 EST, Height Start Date: 07/18/24 Stop Date: 07/13/25 Status: Ordered Medication Dispense Status: Completed Quantity: 30.0 Unit: tablet Total Allowed Fills: 12 Fills Dispensed: 0 methenamine hippurate Start Date: 11/13/23 Status: Ordered Medication Dispense Status: Completed Total Allowed Fills: 1 Fills Dispensed: 0 mirabegron 50 mg oral tablet, extended release 1 tablet = 50 mg, By Mouth, Daily, do not crush or chew, # 30 tablet, 0 Refills, Maintenance, 07/18/24 8:32:00 AM EST, ER Tablet, Partial fill upon patient request if the prescription is for a schedule II opioid drug. Start Date: 07/18/24 Status: Ordered Medication Dispense Status: Completed Quantity: 30.0 Unit: tablet Total Allowed Fills: 1 Fills Dispensed: 0 Mounjaro Subcutaneous Infusion, 0 Refills, Maintenance, 02/27/25 8:53:00 AM EDT, Partial fill upon patient request if the prescription is for a schedule II opioid drug. Start Date: 02/27/25 Status: Ordered Medication Dispense Status: Completed Total Allowed Fills: 1 Fills Dispensed: 0 naproxen 500 mg oral tablet 1 tablet = 500 mg, By Mouth, 2 times a day, # 180 tablet, 0 Refills, Maintenance, 07/18/24 8:31:00 AM EST, Tablet, Partial fill upon patient request if the prescription is for a schedule II opioid drug. Start Date: 07/18/24 Status: Ordered Medication Dispense Status: Completed Quantity: 180.0 Unit: tablet Total Allowed Fills: 1 Fills Dispensed: 0 Pen [place], 31 G x 5 mm BD Ultra Fine III See Instructions, # 100 each, Refills 5, Tot. Refills 5, Maintenance, use as directed for Type 2 Diabetes Mellitus QID, 10/16/24 4:21:00 PM EDT, Supply, 170.1, cm, 10/16/24 15:43:00 EDT, Height Start Date: 10/16/24 Stop Date: 04/14/25 Status: Ordered Medication Dispense Status: Completed Quantity: 100.0 Unit: each Total Allowed Fills: 6 Fills Dispensed: 0 sertraline 100 mg oral tablet 1 tablet = 100 mg, By Mouth, Daily, 0 Refills, Maintenance, 11/13/23 3:14:00 PM EDT, Partial fill upon patient request if the prescription is for a schedule II opioid drug. Start Date: 11/13/23 Status: Ordered Medication Dispense Status: Completed Total Allowed Fills: 1 Fills Dispensed: 0 Turmeric = 500 mg, By Mouth, Daily, 0 Refills, Maintenance, 02/27/25 8:52:00 AM EDT, Partial fill upon patient request if the prescription is for a schedule II opioid drug. Start Date: 02/27/25 Status: Ordered Medication Dispense Status: Completed Total Allowed Fills: 1 Fills Dispensed: 0 Uqora Uqora, 0 Refills, Maintenance, 02/27/25 8:52:00 AM EDT Start Date: 02/27/25 Status: Ordered Medication Dispense Status: Completed Total Allowed Fills: 1 Fills Dispensed: 0 Problem List Condition Confirmation Course Effective Dates Status Health St atus Informant Severe obesity Confirmed Active Type II diabetes mellitus Confirmed Active Social History Social History Type Response Smoking Status Never (less than 100 in lifetime) entered on: 10/16/24 Sexual Orientation Self described orien tation: ; Straight or heterosexual Sex Sex Representation Female (finding) Patient Care team information Care Team Personnel Name: Eduardo Carrillo MD Position: Reference Physician Member Role: PCP Address: [address] [place] [address] Telecom: Care Team Related Persons Name: LUKASZ CARRANZA Name: ULISES AKBAR Insurance Providers Guarantor name: VIPIN Health Plan Information #: 1 Payer: [facility] [employer] Payer Identifier: VIPIN Member Number: [id number] Group Number: [id number] Subscriber Identifier: [id number] Relationship to Subscriber: self Coverage Type: Commercial Managed Care - HMO Coverage Verification Date: VIPIN Telecom: VIPIN Address: VIPIN Health Plan Information #: 2 Payer: MEDICARE B Payer Identifier: VIPIN Member Number: [id number] Group Number: VIPIN Subscriber Identifier: VIPIN Relationship to Subscriber: self Coverage Type: NA Coverage Verification Date: VIPIN Telecom: VIPIN Address:
[2025-06-24 13:12] LABS: Appearance Urine Clear; Glucose Urine UA Negative (Negative); PH 7.0 (5.0-9.0); Specific Gravity - Urine 1.020 (1.005-1.025); UMIC TRIGGER UA YES
--- OUTSIDE RECORDS SUMMARY | 2025-06-24 21:06 | XMS_ITS | Patient Health Record ---
Author Organization [facility] Address [address] [place] [address] Care Team Providers Care Basketball Commentator Name Role Phone Cem (RETIRED) Jerad LOVE Primary Care Provider Unavailable Rocky Hodgson Unavailable [phone] Reason For Referral No Information Plan Of Treatment No Information Insurance Providers Payer Name Payer Address Payer Phone Subscriber Number Group Number Insured Name Patient Relationship to Insured Coverage Start Date Coverage End Date [facility] [address] [place] [phone] [id number] CHERYL AKBAR Self - patient is the insured
== END 2025-06-23 16:16 | disposition home or self-care (01) ==
LOC: HO.HMGCLNP 16:15
PROVIDERS: PCP Physician Assistant Medical; Visit Provider Urology
DX: R39.15 Urgency of urination (principal); N39.0 Urinary tract infection, site not specified; R32 Unspecified urinary incontinence
CPT/HCPCS: 81001; 87086; 87088; 87186

== ENCOUNTER 2025-07-08 11:00 | Outpatient (REF) | payer MEDICARE, OTHER, SELFPAY ==
--- OUTSIDE RECORDS SUMMARY | 2025-07-08 17:10 | XMS_ITS | Patient Health Record ---
Author Organization [facility] Address [address] [place] [address] Care Team Providers Care Color Room Attendant Name Role Phone Cem (RETIRED) Jerad LOVE Primary Care Provider Unavailable Rocky Hodgson Unavailable [phone] Reason For Referral No Information Plan Of Treatment No Information Insurance Providers Payer Name Payer Address Payer Phone Subscriber Number Group Number Insured Name Patient Relationship to Insured Coverage Start Date Coverage End Date [facility] [address] [place] [phone] [id number] CHERYL AKBAR Self - patient is the insured
[2025-07-08 18:31] LABS: Appearance Urine Clear; Glucose Urine UA >=1000 mg/dL (Negative); PH 6.0 (5.0-9.0); Specific Gravity - Urine >= 1.030 (1.005-1.025); UMIC TRIGGER UA YES
== END 2025-07-08 11:01 | disposition home or self-care (01) ==
LOC: HO.HMGCLNP 11:00
PROVIDERS: PCP Physician Assistant Medical; Visit Provider Urology
DX: N39.0 Urinary tract infection, site not specified (principal)
CPT/HCPCS: 81001; 87086; 87088; 87186

== ENCOUNTER 2025-07-18 18:30 | Emergency (ER) | payer MEDICARE, OTHER, SELFPAY ==
--- NOTE | ~2025-07-18 | XR_ITS ---
CLINICAL HISTORY: dyspnea 1 view chest x-ray Comparison: None provided Findings: Mild pulmonary opacities nonspecific and may reflect edema or pneumonitis given interstitial opacities and likely accentuated by technique. Mild cardiomegaly and tortuosity of the thoracic aorta noted. No definite pneumothorax or pleural effusion in this one view study. Degenerative changes include imaged AC joints. IMPRESSION: Mild interstitial opacities are nonspecific and can be associated with edema and pneumonitis. This document has been electronically signed by: Regulo Anne MD on 07/18/2025 20:06:01
[2025-07-18 18:56] VITALS: BP 175/89; PULSE 103; RESP 16; TEMP 37; O2SAT 95; BMI 44.9
--- NOTE | 2025-07-18 19:03 | ED.ABDPAIN ---
HPI - Abdominal Pain General Chief Complaint: Vaginal Bleeding Stated Complaint: heavy bleeding, pain, has a specimen Time Seen by Provider: 07/18/25 20:18 Source: patient Limitations: no limitations History of Present Illness ED Provider: Dinorah Vargas PA-C HPI narrative: 65-year-old female with a history of morbid obesity, prior cervical polypectomy, atrophic vaginitis, recurrent urinary tract infections, hypertension, hyperlipidemia and diabetes, presents with progressively heavy vaginal bleeding over the past week. Patient states she is currently being treated for urinary tract infection, she began passing small clots while voiding. She thought it was from a urinary source. Today, the bleeding became more severe, she is continually bleeding and passing large clots. The heavy bleeding began at approximately 5:00 p.m. today. The patient does not use a blood thinner, she is not on oral hormonal replacement. Related Data Home Medications ?Medication ?Instructions ?Recorded ?Confirmed flash glucose sensor (FreeStyle #1 ea 06/23/21 05/25/25 Lynsey 14 Day Sensor kit) insulin glargine 100 unit/mL (3 65 unit subcut BID 03/11/24 05/25/25 mL) subcutaneous pen (Lantus Solostar U-100 Insulin) cod liver oil 1 cap PO DAILY 02/26/25 05/25/25 fexofenadine 180 mg tablet 180 mg PO DAILY 02/26/25 05/25/25 (Rachael Allergy) insulin lispro 100 unit/mL subcut 02/26/25 05/25/25 subcutaneous pen (Humalog KwikPen (U-100) Insulin) metformin 500 mg tablet,extended 500 mg PO DAILY 02/26/25 05/25/25 release 24 hr naproxen 500 mg tablet 500 mg PO BID 02/26/25 05/25/25 triamcinolone acetonide 0.1 % appl topical BID 02/26/25 05/25/25 topical cream estradiol 0.01% (0.1 mg/gram) vaginal 03/26/25 05/25/25 vaginal cream lorazepam 0.5 mg tablet 0.5 mg PO BID PRN Anxiety 03/26/25 05/25/25 Previous Rx's ?Medication ?Instructions ?Recorded pen needle, diabetic 32 gauge x #450 ea 06/14/20 (BD Anaya 2nd Gen Pen Needle) atorvastatin 20 mg tablet 20 mg PO DAILY #30 tabs 01/05/21 methenamine hippurate 1 gram tablet 1 g PO DAILY 90 days #90 tabs 02/26/25 mirabegron 25 mg tablet,extended 25 mg PO DAILY 30 days #30 tabs 02/26/25 release 24 hr (Myrbetriq) cholecalciferol (vitamin D3) 50 50 mcg PO DAILY #90 caps 03/06/25 mcg (2,000 unit) capsule blood pressure kit-extra large #1 ea 03/26/25 sertraline 100 mg tablet 100 mg PO DAILY #90 tabs 03/26/25 sertraline 50 mg tablet 50 mg PO DAILY #90 tabs 03/26/25 fosfomycin tromethamine 3 gram 1 packet PO Q OTHER DAY 3 doses #3 05/19/25 oral packet ea tirzepatide 12.5 mg/0.5 mL 12.5 mg (0.5 mL) subcut QWEEK #2 mL 06/23/25 subcutaneous pen injector (Lawrence) cefuroxime axetil 500 mg tablet 500 mg PO BID 7 days #14 tabs 07/10/25 fluticasone propionate 50 1 spray intranasal BID #16 mL 07/14/25 mcg/actuation nasal spray,suspension ketorolac 10 mg tablet 10 mg PO Q6H PRN pain #20 tabs 07/19/25 methocarbamol 750 mg tablet 1,500 mg (2 x 750 mg) PO Q8H PRN 07/19/25 pain, moderate #30 tabs Allergies Allergy/AdvReac Type Severity Reaction Status Date / Time latex (LATEX) Allergy Intermediate RASH Verified 07/18/25 19:07 sulfamethoxazole (From Allergy Mild Itching Verified 07/18/25 19:07 Bactrim) trimethoprim (From Bactrim) Allergy Mild Itching Verified 07/18/25 19:07 dust Allergy Intermediate Sneezing Uncoded 05/25/25 16:47 pollen Allergy Intermediate Sneezing Uncoded 05/25/25 16:47 PMFSH Past Medical History Attestation statement: The following information was validated with the patient. Medical History Preventative health care Low magnesium level Dysuria Osteoarthritis Morbid obesity with BMI of 45.0-49.9, adult Hypertension Hyperlipidemia Type 2 diabetes mellitus with hemoglobin A1c goal of less than 7.0% Anxiety and depression Urinary urgency Elevated cholesterol Morbid obesity Breast calcification, left Arthritis Anxiety Tendonitis Diabetes type 2, uncontrolled Surgical History History of cystoscopy Hx of left breast biopsy Hx of right breast biopsy Hx of colonoscopy Hx of section H/O cervical polypectomy Family History Family History Mother Kidney carcinoma Father Glaucoma High blood pressure Alzheimer's dementia Social History Social History Household Members Other:: son Housing: House Alcohol intake: never Patient Tobacco Use Status: Former Tobacco user service: No 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: retired Sexual orientation: Straight/Heterosexual Gender identity: Female Cognitive needs: Yes (cane and walker sometimes) Hearing needs: No Vision needs: Yes (rx glasses/ cheateres) Physical Exam ED Vital Signs: Vital Signs - 24 hr 07/18/25 18:56 07/18/25 22:11 07/18/25 23:54 Temperature 98.6 F 98.1 F 97.6 F Pulse Rate 103 H 107 H 103 H Respiratory Rate 16 18 18 Blood Pressure 175/89 H 153/76 H 133/79 Pulse Oximetry 95 97 94 Oxygen Delivery Method Room Air Room Air Room Air BMI result Body Mass Index 44.9 Const Other: alert, anxious Orientation/consciousness: patient oriented x3 Resp Effort & Inspection: normal respiratory effort Cardio Other: normal peripheral perfusion Other: normal external genitals, large clot burden in pelvic canal, cannot fully visualize the cervix due to the active bleeding on second exam, suctioned used, she had additional clot burden in a brief period of time, with suction, I can view os, she has a steady trickle of blood per os Skin Other: warm dry no rash Neuro General: patient oriented x3, gait normal, no focal motor deficits and CN's II-XI intact bilaterally Psych Other: cooperative Course Course Course Narrative: This is a RME preformed in triage by Azeb Gonzalez PA-C. Date:07/18/25, time?704 pm Patient presents with genitourinary sxs ? of passing urinary, vaginal or rectal clots, brought material in bag, looks like membraneous like golfball item (ovary-like), with blood tinged on outside, she is not sure where is passed from while in the shower. Maranda reports a history of recurrent urinary tract infections over the past year, currently under the care of a urologist. ? She completed a recent course of antibiotics but continues to experience constant urinary urgency and severe dysuria. ? Today she passed multiple large blood clots??the size of a liver??with every void and while in the shower. She also expelled a skin-like, sack-shaped piece of tissue approximately [id number]-ball size with a black circular area that appeared ?detached from something.? She is unsure whether it came from the urethra, vagina, or rectum due to copious blood present. ? Associated symptoms: left-sided abdominal cramping all weekend and new left-sided lower back pain. Walking is painful and ?takes her breath away,? though she denies resting shortness of breath. ? Incontinence: previously described as ?[place],? now improved but still wearing diapers/pads. Over the past few days she has used three full packs of adult diapers and is shelter through a fourth. ? Denies nausea, diarrhea, melena/black tarry stool, fever, chest pain, or resting dyspnea. ? No recent blood sugar readings; continuous glucose monitor and is not in use. Patient has not done anything with her sugar and has no idea what her current blood sugar is. Review of Systems: Constitutional: denies fever. GI: left-sided abdominal cramping; denies nausea, diarrhea, melena. : constant urinary urgency, severe dysuria, large hematuria with clots, passage of tissue-like material, urinary incontinence (diapers/pads), new left low back pain. Respiratory: no SOB at rest; reports breathlessness with painful ambulation. Cardiovascular: denies chest pain. Work UP:?labs, UA, type and screen Will defer full ROS and PE to treating provider. Patient will continued to be monitored in the interim. Consultations Consultation #1: per Dr. Fatima...request repeat pelvic exam given not sufficient objective data for him to determine the need to emergently assess the patient Time: 20:48 Consultation #2: I relayed second exam findings to Dr. Fatima, , he is coming in to examine the patient himself Consultation #3: Dr. Fatima has controlled the bleeding, the Pt brought in a specimen that she passed earlier, it will be sent for pathology....he feels the remnant in the uterus was bleeding, he had ordered provera, he sts we can dc it.....we will wait an hour, if no bleeding she can fu in his office, he cancelled the TVUS I had ordered the patient is requesting pain medication, will give toradol and methocarbamol no bleeding, pain much improved, dc home now Medical Decision Making Medical Decision Making [facility] Narrative: 65-year-old female with a history of morbid obesity, prior cervical polypectomy, atrophic vaginitis, recurrent urinary tract infections, hypertension, hyperlipidemia and diabetes, presents with progressively heavy vaginal bleeding over the past week. Patient states she is currently being treated for urinary tract infection, she began passing small clots while voiding. She thought it was from a urinary source. Today, the bleeding became more severe, she is continually bleeding and passing large clots. The heavy bleeding began at approximately 5:00 p.m. today. The patient does not use a blood thinner, she is not on oral hormonal replacement. Problem: obese, post menopausal Hx: per Pt I have considered the following DDX: endometrial CA, bleeding fibroid, cervical CA Plan: screening labs already completed, stable H and H, will repeat, I am adding TVUS and will consult Dr. Fatima I have independently reviewed the following tests: Labs: Leukocytosis 15.3, no left shift, H&H 13.3 and 40, repeat H&H , no electrolyte abnormality, type and screen obtained Transvaginal ultrasound: cancelled per Dr. Fatima Differential Diagnosis Differential Diagnoses: The differential diagnosis associated with the presentation includes se mdm Admission/Observation Consideration of admission/observation: Escalation of care including admission/observation considered Consult Healthcare Provider Management of the patient was discussed with: Hospital Social Worker loader magazine grinder Lab Data [facility] Lab Attestation statement: I reviewed the patient's lab results. 07/18/25 20:45 07/18/25 19:37 Labs: Lab Results 07/18/25 07/18/25 Range/Units 19:37 20:45 WBC 15.3 H (4.8-10.8) X10*3/uL RBC 5.20 (4.20-5.50) X10*6/uL Hgb 13.3 13.5 (12.0-16.0) g/dl Hct 40.0 40.9 (37.0-47.0) % MCV 76.9 L (80.0-98.0) fL MCH 25.6 L (27.0-33.0) pg MCHC 33.3 (31.0-35.0) g/dl RDW 15.0 (11.0-16.0) % Plt Count 282 (160-400) X10*3/uL MPV 9.6 (9.4-12.3) fL Immature Gran % (Auto) 0.5 H (0.0-0.4) % Neut % (Auto) 70.5 (45-73) % Lymph % (Auto) 20.9 (20-40) % [place] % (Auto) 6.5 (2-11) % Eos % (Auto) 1.3 (0-4) % Baso % (Auto) 0.3 (0-2) % Lymph # (Auto) 3.2 (1.2-4.9) X10*3/uL [place] # (Auto) 1.0 (0.1-1.2) X10*3/uL Eos # (Auto) 0.2 (0.0-0.4) X10*3/uL Baso # (Auto) 0.0 (0.0-0.2) X10*3/uL Abs Immat Gran (auto) 0.08 H (0.00-0.03) X10*3/uL Absolute Neuts (auto) 10.8 H (2.0-8.3) x10*3/uL Absolute Nucleated RBC 0.000 (0.0-0.012) X10*3/uL Nucleated RBC % (auto) 0.0 (0.0-0.2) /100WBC PT 13.2 (11.2-13.5) SEC INR 1.1 (0.9-1.1) Sodium 138 (135-145) mmol/L Potassium 4.1 (3.3-5.1) mmol/L Chloride 104 (96-108) mmol/L Carbon Dioxide 26 (22-29) mmol/L Anion Gap 12 (12-20) BUN 14 (9-16) mg/dL Creatinine 0.54 (0.5-1.4) mg/dL Estim Creat Clear Calc 145.9 Estimated GFR > 60 Random Glucose 117 H (60-115) mg/dL Calcium 9.9 D (8.4-10.2) mg/dL Magnesium 1.7 (1.6-2.6) mg/dL Total Bilirubin 0.4 (0.0-1.0) mg/dL AST 25 (5-31) U/L ALT 32 H (0-31) U/L Alkaline Phosphatase 92 (39-117) U/L Total Protein 7.3 (6.5-8.0) g/dL Albumin 4.4 (3.5-5.0) g/dL Blood Type B Positive Antibody Screen NEGATIVE Medications Administered Discontinued Medications Generic Name Dose Route Start Last Admin Trade Name Freq PRN Reason Stop Dose Admin Ferric Subsulfate 2 appl 07/18/25 22:39 07/18/25 23:50 Ferric Subsulfate 8 Ml Radha.W.Appl TOPICAL 07/18/25 22:40 2 appl ONCE ONE Administration Ketorolac Tromethamine 15 mg 07/18/25 23:42 07/18/25 23:50 Ketorolac Tromethamine 15 Mg/Ml Vial IVPUSH 07/18/25 23:43 15 mg ONCE ONE Administration Methocarbamol 1,500 mg 07/18/25 23:42 07/18/25 23:50 Methocarbamol 750 Mg Tablet PO 07/18/25 23:43 1,500 mg ONCE ONE Administration Discharge Plan Discharge Clinical Impression: DUB (dysfunctional uterine bleeding) Patient Disposition: Home, Self-Care Instructions: Abnormal (Dysfunctional) Uterine Bleeding (ED) Additional Instructions: You should follow up with Dr. Kushal coyle as he instructed. Use the Toradol as needed for pain this is an anti-inflammatory. Use the methocarbamol as needed for further pain this is a muscle relaxant. Muscle relaxant as cause drowsiness do not drive or operate machinery while taking this medication. Return precaution for new onset of heavy vaginal bleeding, that will not stop. If you develop any symptoms, seek medical attention as soon as possible. Prescriptions: New ketorolac 10 mg tablet 10 mg PO Q6H PRN (Reason: pain) Qty: 20 0RF Rx Instructions: maximum total duration of 5 days from all oral, intranasal, or parenteral formulations, patient received an IV dose of Toradol here in the emergency room methocarbamol 750 mg tablet 1,500 mg PO Q8H PRN (Reason: pain, moderate) Qty: 30 0RF No Action (DME) pen needle, diabetic [BD Anaya 2nd Gen Pen Needle] 32 gauge x 5/32 needle See Rx Instructions .MEDSUPPLY Qty: 450 4RF Rx Instructions: 5 times a day atorvastatin 20 mg tablet 20 mg PO DAILY Qty: 30 6RF cholecalciferol (vitamin D3) 50 mcg (2,000 unit) capsule 50 mcg PO DAILY Qty: 90 3RF fosfomycin tromethamine 3 gram packet 1 packet PO Q OTHER DAY Qty: 3 0RF Mounjaro 12.5 mg/0.5 mL pen injector 12.5 mg subcut QWEEK Qty: 2 0RF cefuroxime axetil 500 mg tablet 500 mg PO BID 7 Days Qty: 14 0RF fluticasone propionate 50 mcg/actuation spray,suspension 1 spray intranasal BID Qty: 16 3RF insulin glargine [Lantus Solostar U-100 Insulin] 100 unit/mL (3 mL) insulin pen 65 unit subcut BID lorazepam 0.5 mg tablet 0.5 mg PO BID PRN (Reason: Anxiety) (DME) FreeStyle Lynsey 14 Day Sensor Kit See Rx Instructions topical Q2W Qty: 1 Rx Instructions: As directed triamcinolone acetonide 0.1 % cream topical BID cod liver oil Capsule 1 cap PO DAILY naproxen 500 mg tablet 500 mg PO BID fexofenadine [Rachael Allergy] 180 mg tablet 180 mg PO DAILY metformin 500 mg tablet extended release 24 hr 500 mg PO DAILY insulin lispro [Humalog KwikPen Insulin] 100 unit/mL insulin pen subcut Myrbetriq 25 mg tablet extended release 24 hr 25 mg PO DAILY 30 Days Qty: 30 1RF methenamine hippurate 1 gram tablet 1 g PO DAILY 90 Days Qty: 90 2RF estradiol 0.01 % (0.1 mg/gram) cream vaginal sertraline 100 mg tablet 100 mg PO DAILY Qty: 90 3RF sertraline 50 mg tablet 50 mg PO DAILY Qty: 90 3RF (DME) blood pressure kit-extra large Kit See Rx Instructions .ROUTE .MEDSUPPLY Qty: 1 0RF Rx Instructions: Monitor blood pressure daily Interventions: ED Discharge Assessment Last Done: 07/19/25 00:53 Discharge Date/Time: 07/19/25 01:10 Print Language: [place] Islander
[2025-07-18 19:41] LABS: MANUAL DIFF FLAG NO
[2025-07-18 19:44] LABS: Hematocrit 40.0 % (37.0-47.0); Hemoglobin 13.3 g/dl (12.0-16.0); Imm Gran Abs Auto 0.08 X10*3/uL (0.00-0.03); Imm Gran Pct Auto 0.5 % (0.0-0.4); Lymphocytes Absolute Auto 3.2 X10*3/uL (1.2-4.9); Mean Corpuscular HGB Conc 33.3 g/dl (31.0-35.0); Mean Corpuscular Hemoglobin 25.6 pg (27.0-33.0); Mean Corpuscular Volume 76.9 fL (80.0-98.0); NRBC Abs Auto 0.000 X10*3/uL (0.0-0.012); NRBC Pct Auto 0.0 /100WBC (0.0-0.2); Platelet Count 282 X10*3/uL (160-400); Red Blood Count 5.20 X10*6/uL (4.20-5.50); White Blood Count 15.3 X10*3/uL (4.8-10.8)
[2025-07-18 19:54] LABS: INTERNATIONAL NORM RATIO 1.1 (0.9-1.1); Prothrombin Time 13.2 SEC (11.2-13.5)
[2025-07-18 20:04] LABS: Alanine Aminotransferase 32 U/L (0-31); Albumin Level 4.4 g/dL (3.5-5.0); Alkaline Phosphatase 92 U/L (39-117); Anion Gap 12 (12-20); Aspartate Amino Transferase 25 U/L (5-31); Blood Urea Nitrogen 14 mg/dL (9-16); Calcium 9.9 mg/dL (8.4-10.2); Carbon Dioxide 26 mmol/L (22-29); Chloride 104 mmol/L (96-108); Creatinine Clr Calc Pharmacy 145.9; Estimated Glomerular Filt Rate > 60; Magnesium 1.7 mg/dL (1.6-2.6); Potassium 4.1 mmol/L (3.3-5.1); Sodium 138 mmol/L (135-145); Total Protein 7.3 g/dL (6.5-8.0)
--- OUTSIDE RECORDS SUMMARY | 2025-07-18 20:22 | XMS_ITS | Patient Health Record ---
Author Organization [facility] Address [address] [place] [address] Care Team Providers Care Personnel Scheduler Name Role Phone Cem (RETIRED) Jerad LOVE Primary Care Provider Unavailable Rocky Hodgson Unavailable [phone] Reason For Referral No Information Plan Of Treatment No Information Insurance Providers Payer Name Payer Address Payer Phone Subscriber Number Group Number Insured Name Patient Relationship to Insured Coverage Start Date Coverage End Date [facility] [address] [place] [phone] [id number] CHERYL AKBAR Self - patient is the insured
[2025-07-18 20:50] LABS: Hematocrit 40.9 % (37.0-47.0); Hemoglobin 13.5 g/dl (12.0-16.0)
--- NOTE | 2025-07-18 20:56 | PM.GYNCN ---
LAN MANAGER - CN: HPI Data of Consult Consult date: 07/18/25 Primary Care Provider: Eduardo Carrillo MD Consult Narrative Narrative: I was consulted on Maranda Powell who is a 65 year old female presenting to the emergency complaining of vaginal bleeding over the past week. Today, the bleeding became more severe, the patient was taken you shower and passed large tissue and bleeding started more actively, associated with blood clots. The patient brought the tissue with a in a zip lock bag see by 3 cm tissue looking like a polyp versus myoma H&H at 19:37 was 13.3/40 repeated at 20:45 was 13.5/40.9 Last Co testing in 10/27 was negative Last mammogram in 08/30 was BI-RADS 2 cc:: CC: OB [facility] Past Medical History Medical History Preventative health care Low magnesium level Dysuria Osteoarthritis Morbid obesity with BMI of 45.0-49.9, adult Hypertension Hyperlipidemia Type 2 diabetes mellitus with hemoglobin A1c goal of less than 7.0% Anxiety and depression Urinary urgency Elevated cholesterol Morbid obesity Breast calcification, left Arthritis Anxiety Tendonitis Diabetes type 2, uncontrolled Family History Family History Mother Kidney carcinoma Father Glaucoma High blood pressure Alzheimer's dementia Surgical History Surgical History History of cystoscopy Hx of left breast biopsy Hx of right breast biopsy Hx of colonoscopy Hx of section H/O cervical polypectomy Social History Social History Household Members Other:: son Housing: House Alcohol intake: never Patient Tobacco Use Status: Former Tobacco user service: No 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: retired Sexual orientation: Straight/Heterosexual Gender identity: Female Cognitive needs: Yes (cane and walker sometimes) Hearing needs: No Vision needs: Yes (rx glasses/ cheateres) Meds Allergies Allergy/AdvReac Type Severity Reaction Status Date / Time latex (LATEX) Allergy Intermediate RASH Verified 07/18/25 19:07 sulfamethoxazole (From Allergy Mild Itching Verified 07/18/25 19:07 Bactrim) trimethoprim (From Bactrim) Allergy Mild Itching Verified 07/18/25 19:07 dust Allergy Intermediate Sneezing Uncoded 05/25/25 16:47 pollen Allergy Intermediate Sneezing Uncoded 05/25/25 16:47 Home Medications ?Medication ?Instructions ?Recorded ?Confirmed ?Last Taken ?Type flash glucose sensor (FreeStyle #1 ea 06/23/21 05/25/25 Unknown History Lynsey 14 Day Sensor kit) insulin glargine 100 unit/mL (3 65 unit subcut BID 03/11/24 05/25/25 03/10/24 20:00 History mL) subcutaneous pen (Lantus 65 units Solostar U-100 Insulin) cod liver oil 1 cap PO DAILY 02/26/25 05/25/25 Unknown History fexofenadine 180 mg tablet 180 mg PO DAILY 02/26/25 05/25/25 Unknown History (Rachael Allergy) insulin lispro 100 unit/mL subcut 02/26/25 05/25/25 Unknown History subcutaneous pen (Humalog KwikPen (U-100) Insulin) metformin 500 mg tablet,extended 500 mg PO DAILY 02/26/25 05/25/25 Unknown History release 24 hr naproxen 500 mg tablet 500 mg PO BID 02/26/25 05/25/25 Unknown History triamcinolone acetonide 0.1 % appl topical BID 02/26/25 05/25/25 Unknown History topical cream estradiol 0.01% (0.1 mg/gram) vaginal 03/26/25 05/25/25 Unknown History vaginal cream lorazepam 0.5 mg tablet 0.5 mg PO BID PRN Anxiety 03/26/25 05/25/25 Unknown History LAN MANAGER Physical Exam Vitals Vital signs: Temp Pulse Resp BP Pulse Ox O2 Del Method 98.6 F 103 H 16 175/89 H 95 Room Air 07/18/25 18:56 07/18/25 18:56 07/18/25 18:56 07/18/25 18:56 07/18/25 18:56 07/18/25 18:56 BMI result Body Mass Index 44.9 Female Genitalia (Pelvic) Vulva: No lesions Adnexa/Parametria: Adnexal Tenderness: None, Adnexal Mass: None and Parametrial Tenderness: None Additional Comments: Blood clots per vagina and active vaginal bleeding coming out of the cervix LAN MANAGER - Results Labs 07/18/25 20:45 07/18/25 19:37 Labs: Short CBC 07/18/25 07/18/25 Range/Units 19:37 20:45 WBC 15.3 H (4.8-10.8) X10*3/uL Hgb 13.3 13.5 (12.0-16.0) g/dl Hct 40.0 40.9 (37.0-47.0) % Plt Count 282 (160-400) X10*3/uL BMP 07/18/25 19:37 Sodium 138 Potassium 4.1 Chloride 104 Carbon Dioxide 26 BUN 14 Creatinine 0.54 Calcium 9.9 D Liver Function 07/18/25 Range/Units 19:37 Total Bilirubin 0.4 (0.0-1.0) mg/dL AST 25 (5-31) U/L ALT 32 H (0-31) U/L Alkaline Phosphatase 92 (39-117) U/L Albumin 4.4 (3.5-5.0) g/dL Antibody Screen Antibody Screen NEGATIVE 07/18/25 19:37 Assessment and Plan (1) Postmenopausal bleeding: Status: Acute During pelvic exam Monsel's solution was used with Q-tip intracervical to stop the bleeding and pressure with a sponge stick was applied for 2 minutes and the bleeding completely resolved. Instructions given the patient to come back to emergency room in case of recurrence of vaginal bleeding Discussed with the patient possible cause of vaginal bleeding including endometrial pathology including but not limited to endometrial hyperplasia and/or malignancy or a polyp Will send the tissue brought by the patient to pathology Instructions given to patient to call in 2 days for follow-up in the office for endometrial sampling and ultrasound to rule out endometrial pathology. All questions answered, the patient verbalized understanding Discussed the case with LATONIA Mckenna, the patient to be observed for 30-60 minutes if more bleeding be discharged home follow up in the office 2 days, to come back to emergency room in case of recurrence of her vaginal bleeding
[2025-07-18 22:11] VITALS: BP 153/76; PULSE 107; RESP 18; TEMP 36.7; O2SAT 97
--- NOTE | 2025-07-18 22:12 | PC.NURSE ---
Pt having several large clots and vaginal bleeding that started earlier today. Haven LINCOLN did vaginal exam and consulted d/t patient having active cervical bleeding with multiple clots. .. at bedside, assessing patient, vaginal exam completed with some discomfort. Patient tolerated exam fair. discussing options with patient.
[2025-07-18 23:54] VITALS: BP 133/79; PULSE 103; RESP 18; TEMP 36.4; O2SAT 94
[2025-07-19 00:53] VITALS: BP 116/64; PULSE 79; RESP 16; TEMP 36.4; O2SAT 94
== END 2025-07-19 01:10 | disposition home or self-care (01) ==
PROVIDERS: Physician Assistant Medical; Emergency Provider Emergency Medicine; PCP Internal Medicine
DX: N93.8 Other specified abnormal uterine and vaginal bleeding (principal); N95.0 Postmenopausal bleeding; R06.00 Dyspnea, unspecified; I10 Essential (primary) hypertension; E78.5 Hyperlipidemia, unspecified; E11.9 Type 2 diabetes mellitus without complications; E78.00 Pure hypercholesterolemia, unspecified; Z79.899 Other long term (current) drug therapy; Z79.4 Long term (current) use of insulin
CPT/HCPCS: 36415; 71045; 80053; 83735; 85014; 85018; 85025; 85610; 86850; 86900; 86901; 88305; 96374; 99284; J1885

== ENCOUNTER → 2025-07-18 19:08 | Outpatient (BNV) | payer MEDICARE, OTHER, SELFPAY | PROVIDERS: Emergency Provider Emergency Medicine Emergency Medical Services; PCP Internal Medicine; Visit Provider Radiology Neuroradiology | DX: R06.00 Dyspnea, unspecified (principal) | CPT/HCPCS: 71045 ==

== ENCOUNTER → 2025-07-18 20:12 | Outpatient (BNV) | payer MEDICARE, OTHER, SELFPAY | PROVIDERS: Emergency Provider Emergency Medicine; PCP Internal Medicine; Visit Provider Obstetrics & Gynecology | DX: N95.0 Postmenopausal bleeding (principal) | CPT/HCPCS: 99284 ==

== ENCOUNTER 2025-07-21 10:01 | Outpatient (REF) | payer MEDICARE, OTHER, SELFPAY ==
--- NOTE | ~2025-07-21 | US_ITS ---
CLINICAL HISTORY: N95.0 - Postmenopausal bleeding Ultrasound of the female pelvis Comparison: CT/SR - CT ABDOMEN PELVIS WITHOUT IV CONTRAST - 09/11/22 16:30 EST Technique: Grayscale ultrasound with assistance of color Doppler. Transabdominal scanning performed for overall anatomy. Transvaginal scanning performed for better anatomic delineation. Findings: Suboptimal exam due to body habitus and limited acoustic window. The uterus is anteverted and bulky for the age, 9.3 x 4.8 x 5.6 cm. The uterus and cervix are not well visualized on either transabdominal or transvaginal ultrasound due to motion and artifacts, exophytic calcified fibroid of the right lower uterine segment extending to the adnexa, 5.3 x 4.0 x 4.3 cm, better seen on prior CT. The endometrium is not well seen and appears mildly heterogeneous hyperechoic, thickened measuring 1.2 cm in thickness, no abnormal vascular flow. Ovaries are not seen. Bilateral adnexa are obscured by bowel gas and fibroid shadowing. No free fluid. Impression: 1. Abnormal endometrial thickening 12 mm in the setting of postmenopausal bleeding, recommend dining room maid consultation and endometrial sampling. 2. Uterine fibroid. 3. Nonvisualization of the ovaries. This document has been electronically signed by: Gabi Serra MD on 07/22/2025 10:18:00
--- OUTSIDE RECORDS SUMMARY | 2025-07-21 12:14 | XMS_ITS | Patient Health Record ---
Author Organization [facility] Address [address] [place] [address] Care Team Providers Care Architecture Manager Name Role Phone Cem (RETIRED) Jerad LOVE Primary Care Provider Unavailable Rocky Hodgson Unavailable [phone] Reason For Referral No Information Plan Of Treatment No Information Insurance Providers Payer Name Payer Address Payer Phone Subscriber Number Group Number Insured Name Patient Relationship to Insured Coverage Start Date Coverage End Date [facility] [address] [place] [phone] [id number] CHERYL AKBAR Self - patient is the insured
== END 2025-07-21 10:02 | disposition home or self-care (01) ==
LOC: HO.US 10:01
PROVIDERS: Visit Provider Obstetrics & Gynecology
DX: N95.0 Postmenopausal bleeding (principal)
CPT/HCPCS: 76830; 76856

== ENCOUNTER → 2025-07-21 10:04 | Outpatient (BNV) | payer MEDICARE, OTHER, SELFPAY | PROVIDERS: Visit Provider Radiology Diagnostic Radiology | DX: N95.0 Postmenopausal bleeding (principal); D25.9 Leiomyoma of uterus, unspecified | CPT/HCPCS: 76830; 76856 ==

== ENCOUNTER 2025-07-22 07:52 | Outpatient (AMB) | payer MEDICARE, OTHER, SELFPAY ==
--- OUTSIDE RECORDS SUMMARY | 2025-07-22 07:55 | XMS_ITS | Patient Health Record ---
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
--- NOTE | 2025-07-22 08:04 | A.OFFVIS_ITS ---
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 The patient went to the ER on 07/19 with vaginal bleeding and passage of a 3 cm mass vaginally, tissue was sent to pathology the results are still pending Pelvic ultrasound ordered, results still pending In the emergency room H&H was 13.5/40.9 repeated stable In the emergency room on pelvic exam there was active vaginal bleeding , was thought related to the feeding vessel of the mass that was expulsed vaginally, Monsel's solution and pressure was applied and the bleeding resolved. Since then the patient is due has been doing well with no vaginal bleeding Last Co testing in 10/27 was negative Last mammogram in 08/30 was BI-RADS [address] 09/28 [address] scan showed the following: PELVIC VISCERA: There are multiple phleboliths in the pelvis. There is an exophytic lesion along the right uterus likely fibroid with scattered calcification. [facility] Medical History Preventative health care Low magnesium level Dysuria Osteoarthritis Morbid obesity with BMI of 45.0-49.9, adult Hypertension Hyperlipidemia Type 2 diabetes mellitus with hemoglobin A1c goal of less than 7.0% Anxiety and depression Urinary urgency Elevated cholesterol Morbid obesity Breast calcification, left Arthritis Anxiety Tendonitis Diabetes type 2, uncontrolled Surgical History History of cystoscopy Hx of left breast biopsy Hx of right breast biopsy Hx of colonoscopy Hx of section H/O cervical polypectomy Family History Mother Kidney carcinoma Father Glaucoma High blood pressure Alzheimer's dementia Social History Household Members Other:: son Housing: House Alcohol intake: never Patient Tobacco Use Status: Former Tobacco user service: No 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: retired Sexual orientation: Straight/Heterosexual Gender identity: Female Cognitive needs: Yes (cane and walker sometimes) Hearing needs: No Vision needs: Yes (rx glasses/ cheateres) Female Reproductive History Menstrual Age of Menarche: 10 Review of Systems Const All systems reviewed & are unremarkable except as noted in HPI and below Physical Exam General: Yes no CVA tenderness External Female Exam: normal external appearance and normal appearance of the urethra Speculum Exam - Vagina: normal appearance of the vagina, normal palpation, no lesions and no masses Speculum Exam - Cervix: normal appearance of the cervix, normal palpation, no lesions, no masses and nontender Bimanual exam- vagina & uterus: normal bimanual exam, normal palpation, uterine size normal, normal palpation, uterine shape normal, No Cervical tenderness present and non-tender Bimanual Exam- Adnexa, other: normal adnexae Back/Spine/Pelvis Back: no CVA tenderness Office Procedures Endometrial Biopsy Details: The patient was counseled regarding the indication and benefits of endometrial sampling to rule out endometrial pathology including not limited to endometrial hyperplasia or endometrial cancer and others; The alternatives (Either do nothing vs. hysteroscopy D&C) & the risks were discussed with the patient including but not limited: pain, uterine perforation, bleeding, infection, possible injury to bladder, bowel, ureter, possible need for blood transfusion with all its possible risks. The patient verbalized understanding all questions answered and signed consent. The patient was placed into the dorsal lithotomy position; a speculum was inserted in the vagina. Using aseptic technique for the procedure, the cervix was cleansed with Betadine. The anterior lip of the cervix was grasped with a single tooth tenaculum. The uterus was sounded to 7 cm with a 4 mm Pipelle was used. Tissues samples were obtained and placed in formalin, in a patient labeled container and sent to the pathology department. At the end of the procedure, there was minimal bleeding noted The patient tolerated the procedure well and was discharged in good condition with the following instructions: Nothing in the vagina until the bleeding stops. No sex until the bleeding stops, to call if any of the following occurs: fever (>100.4), flu-like symptoms, abdominal pain, heavy bleeding, four smelling vaginal discharge. The patient was instructed to schedule a Follow up appointment in 2 weeks to discuss pathology results of the biopsy and treatment options. This note was generated with a voice recognition program. Some errors may have been overlooked during the review of this note. Sometimes these errors may affect the content or meaning of a given sentence. 40530-Smzsunbbwyb Biopsy Assessment & Plan Assessment & Plan (1) Postmenopausal bleeding: Comment: Lesion expulsed vaginally Code(s): N95.0 - Postmenopausal bleeding Category: Medical Plan: Discussed with the patient the pathology and pelvic ultrasound results are still pending Given the vaginal bleeding episode recommended endometrial sampling , discussed with the patient differential diagnosis including but not limited to endometrial pathology including hyperplasia , polyp or cancer. Recommended to the patient that the next step is an endometrial sampling via hysteroscopy D&C possible polypectomy versus endometrial biopsy to r/o endometrial pathology including hyperplasia or cancer. All the pros and cons risks and benefits of each approach were discussed with the patient, endometrial biopsy being less invasive, office procedure with less sensitivity and inability diagnose a polyp and removal versus hysteroscopy done under anesthesia more invasive more sensitive to endometrial cancer and possibility of diagnosing and endometrial polyp with the possibility of polypectomy. All questions were answered pt verbalized understanding and decided to proceed with endometrial biopsy Orders: Orders AMB Endometrial Biopsy Today N95.0 - Postmenopausal bleeding Coding Level of Care Code Est Pt Level 3 (64158) Procedure Only Diagnoses Postmenopausal bleeding N95.0 CPT Codes Endometrial Biopsy - CPT: 75663-Jormvkgnpie Biopsy ([id number])
[2025-07-22 08:12] VITALS: BP 140/70; BMI 44.8
== END 2025-07-22 09:05 | disposition home or self-care (01) ==
LOC: HO.HWS 07:52
PROVIDERS: PCP Internal Medicine; Visit Provider Obstetrics & Gynecology
DX: N95.0 Postmenopausal bleeding (principal)
CPT/HCPCS: 58100

== ENCOUNTER 2025-07-22 07:52 | Outpatient (REF) | payer MEDICARE, OTHER, SELFPAY | END 2025-07-22 07:53 | disposition home or self-care (01) | LOC: HO.LNP 07:52 | PROVIDERS: PCP Internal Medicine; Visit Provider Obstetrics & Gynecology | DX: N95.0 Postmenopausal bleeding (principal) | CPT/HCPCS: 58100; 88305 ==

== ENCOUNTER 2025-07-29 08:00 | Outpatient (AMB) | payer MEDICARE, OTHER, SELFPAY ==
--- NOTE | 2025-07-29 07:57 | A.OFFVIS_ITS ---
Intake Visit Reasons: EMB results Allergies latex (LATEX) Allergy (Intermediate, Verified 07/29/25 07:58) RASH sulfamethoxazole (From Bactrim) Allergy (Mild, Verified 07/29/25 07:58) Itching trimethoprim (From Bactrim) Allergy (Mild, Verified 07/29/25 07:58) Itching dust Allergy (Intermediate, Uncoded 07/29/25 07:58) Sneezing pollen Allergy (Intermediate, Uncoded 07/29/25 07:58) Sneezing HPI Comments Details: The patient is scheduled a telehealth visit after endometrial biopsy. The patient has no complaints, no vaginal bleeding, no feverishness chills or abdominal pain. The endometrial biopsy pathology report showed the following: Endometrium, biopsy: - Endometrial polyp. - Background superficial fragments and strips of inactive endometrium. - No atypia identified Pathology of Soft tissue, cervix, excision showed the following: Endocervical / lower uterine segment polyp; no atypia identified 07/22/2025 Pelvic ultrasound showed the following: Suboptimal exam due to body habitus and limited acoustic window. The uterus is anteverted and bulky for the age, 9.3 x 4.8 x 5.6 cm. The uterus and cervix are not well visualized on either transabdominal or transvaginal ultrasound due to motion and artifacts, exophytic calcified fibroid of the right lower uterine segment extending to the adnexa, 5.3 x 4.0 x 4.3 cm, better seen on prior CT. The endometrium is not well seen and appears mildly heterogeneous hyperechoic, thickened measuring 1.2 cm in thickness, no abnormal vascular flow. Ovaries are not seen. Bilateral adnexa are obscured by bowel gas and fibroid shadowing. No free fluid. Impression: 1. Abnormal endometrial thickening 12 mm in the setting of postmenopausal bleeding, recommend blacktop spreader consultation and endometrial sampling. 2. Uterine fibroid. 3. Nonvisualization of the ovaries. Last Co testing in 10/27 was negative [facility] Medical History Preventative health care Low magnesium level Dysuria Osteoarthritis Morbid obesity with BMI of 45.0-49.9, adult Hypertension Hyperlipidemia Type 2 diabetes mellitus with hemoglobin A1c goal of less than 7.0% Anxiety and depression Urinary urgency Elevated cholesterol Morbid obesity Breast calcification, left Arthritis Anxiety Tendonitis Diabetes type 2, uncontrolled Surgical History History of cystoscopy Hx of left breast biopsy Hx of right breast biopsy Hx of colonoscopy Hx of section H/O cervical polypectomy Family History Mother Kidney carcinoma Father Glaucoma High blood pressure Alzheimer's dementia Social History Household Members Other:: son Housing: House Alcohol intake: never Patient Tobacco Use Status: Former Tobacco user service: No 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: retired Sexual orientation: Straight/Heterosexual Gender identity: Female Cognitive needs: Yes (cane and walker sometimes) Hearing needs: No Vision needs: Yes (rx glasses/ cheateres) Female Reproductive History Menstrual Age of Menarche: 10 Review of Systems Const All systems reviewed & are unremarkable except as noted in HPI and below Reports as per HPI and Reports no additional complaints GI Reports no additional complaints Reports no additional complaints Telehealth Telehealth Telehealth Platform: [employer] Location of provider rendering services: practice address Location of patient: address on file Patient Identification confirmed using: Name, : Yes Telehealth method: video Patient verbally consented to treatment: Yes Patient verbally consented to billing insurance company: Yes Patient informed of any privacy concerns related to visit: Yes Minutes spent on Phone/Video with Pt.: 7 Assessment & Plan Assessment & Plan (1) Postmenopausal bleeding: Comment: Endometrial polyp Code(s): N95.0 - Postmenopausal bleeding Category: Medical Plan: Discussed with the patient the results of the soft tissue excision and endometrial pathology showing inactive endometrium with endometrial polyp, recommended hysteroscopy D&C possible polypectomy/ myomectomy. Instructions given the patient to schedule a preop visit within 2 weeks (2) Uterine myoma: Code(s): D25.9 - Leiomyoma of uterus, unspecified Category: Medical Plan: Discussed with the patient the findings on pelvic ultrasound & the risk of myosarcoma; in addition reviewed with the patient that malignancy and pre malignancy cannot be ruled out without hysterectomy for pathological evaluation ; furthermore, explained to the patient the limitation of pelvic ultrasound and endometrial biopsy in the setting. Discussed with the patient the options of treatment including expectant management versus hysterectomy; the pros and cons, risks benefits of each approach were discussed with the patient including the fact that in cases of myosarcoma, surgical treatment can lead to early diagnosis and positively affects the prognosis; after further discussion, the patient decided to proceed with expectant management. Will repeat pelvic ultrasound periodically. Instructions given to patient to call in case any of the following occurs: pressure symptoms, abnormal uterine bleeding, pelvic pain; and to schedule a 3 months pelvic ultrasound (order placed) and a follow-up appointment . All questions answered, the patient verbalized understanding and agreed with the plan . I spent a total of 20 minutes reviewing the chart, talking to the patient via video and documenting in the medical record. Orders: Orders US pelvic and transvaginal 3 Months D25.9 - Leiomyoma of uterus, unspecified Coding Level of Care Code Tele Est Pt Level 3 (48769) Diagnoses Postmenopausal bleeding N95.0 Uterine myoma D25.9
--- OUTSIDE RECORDS SUMMARY | 2025-07-29 08:03 | XMS_ITS | Patient Health Record ---
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
== END 2025-07-29 08:14 | disposition home or self-care (01) ==
LOC: HO.HWS 08:00
PROVIDERS: PCP Internal Medicine; Visit Provider Obstetrics & Gynecology
DX: N95.0 Postmenopausal bleeding (principal); D25.9 Leiomyoma of uterus, unspecified
CPT/HCPCS: 99213